=== PATIENT | female | born 1945 | race Caucasian/White ===

== ENCOUNTER → 2018-04-02 10:01 | Outpatient (CLI) | payer MEDICARE, SELFPAY | PROVIDERS: PCP Family Medicine; Visit Provider Family Medicine | DX: M85.852 Other specified disorders of bone density and structure, left thigh (principal); Z78.0 Asymptomatic menopausal state; Z85.3 Personal history of malignant neoplasm of breast; E28.39 Other primary ovarian failure; Z87.891 Personal history of nicotine dependence | CPT/HCPCS: 77080 ==

== ENCOUNTER → 2019-02-21 11:30 | Outpatient (CLI) | payer MEDICARE, SELFPAY ==
--- NOTE | 2019-02-21 11:33 | DI.US.S_ITS ---
PROCEDURE: US PERIPH VENOUS LOW EXTREM LT INDICATIONS: LT LEG SWELLING TECHNIQUE: Real-time imaging, as well as color and pulse Doppler interrogation, were performed of the lower extremity deep veins from the inguinal ligament to the popliteal fossa. COMPARISON: None. FINDINGS: The common femoral, femoral and popliteal veins are normally compressible, and free of intraluminal thrombus. Color and pulse Doppler demonstrate normal phasic intraluminal flow. There is normal augmentation response to distal compression maneuver. IMPRESSION: Negative for deep venous thrombosis. Dictated by: Gaudencio Bhatia M.D. on 02/21/2019 at 11:40 Approved by: Gaudencio Bhatia M.D. on 02/21/2019 at 11:41
--- NOTE | 2019-02-21 11:33 | DI.US.S_ITS ---
ULTRASOUND OF LEFT BREAST: 02/21/2019 CLINICAL: Enlarging palpable left breast lump at site of previous drainage tube placement. No prior exams were available for comparison. Color flow and real-time ultrasound of the anterior left chest were performed. Petersen scale images of the real-time examination were reviewed. Patient is status post bilateral mastectomy. Targeted ultrasound of the area of the patient's reported palpable abnormality of the anterior lateral left chest demonstrates a 6.3 x 2.5 x 7.1 cm complicated fluid collection with internal echogenic debris, nonvascular internal septations, and no vascularity on Doppler ultrasound. This correlates with the site of the patient's palpable concern. IMPRESSION: PROBABLY BENIGN 7.1 cm complicated fluid collection with internal echogenic debris identified within the soft tissues of the anterior left chest at the site of the patient's reported focal palpable concern, most consistent with an evolving hematoma with internal clot formation. Recommend clinical followup for further evaluation and management. A followup targeted ultrasound in 6 months is recommended to demonstrate stability/resolution. The patient is advised to monitor her chest and to return sooner for re-evaluation should she feel anything grow or change. This exam was interpreted at Station ID: [id number]. Electronically Signed By: Maksim Antoine M.D. ecl/:02/24/2019 11:49:32 letter sent: Followup Recommended Ultrasound BI-RADS: 3 Probably benign
== END ==
PROVIDERS: Family Provider Physician Assistant; PCP Physician Assistant; Visit Provider Internal Medicine Hematology & Oncology
DX: C50.912 Malignant neoplasm of unspecified site of left female breast (principal); M79.89 Other specified soft tissue disorders; Z17.0 Estrogen receptor positive status [ER+]
CPT/HCPCS: 76642; 93971

== ENCOUNTER → 2019-04-28 08:58 | Outpatient (CLI) | payer MEDICARE, SELFPAY ==
--- NOTE | 2019-04-28 09:01 | DI.RAD.S_ITS ---
PROCEDURE: XR CHEST 2V INDICATIONS: Dyspnea on exertion; former smoker; hx of breast cancer TECHNIQUE: 2 views of the chest were acquired. COMPARISON: None. FINDINGS: Surgical changes and devices: None. Lungs and pleura: Lungs are clear. No pleural effusions or pneumothorax. Mediastinum: Mediastinal contours are normal except for a small hiatal hernia behind the heart. Heart size is normal. Bones and chest wall: No suspicious bony abnormalities. Soft tissues appear unremarkable. IMPRESSION: Normal for age, source of current dyspnea on exertion symptoms is not seen. Dictated by: Bertram Lake M.D. on 04/28/2019 at 9:57 Approved by: Bertram Lake M.D. on 04/28/2019 at 9:58
[2019-04-28 11:37] LABS: Thyroid Stimulating Hormone 4.03 uIU/mL (0.47-4.68)
[2019-04-28 12:00] LABS: Vitamin B12 297 pg/mL (239-931)
== END ==
PROVIDERS: PCP Physician Assistant; Visit Provider Physician Assistant
DX: R06.09 Other forms of dyspnea (principal); R19.8 Other specified symptoms and signs involving the digestive system and abdomen; R53.83 Other fatigue; Z85.3 Personal history of malignant neoplasm of breast
CPT/HCPCS: 36415; 71046; 82607; 84443

== ENCOUNTER → 2019-04-29 12:57 | Outpatient (CLI) | payer MEDICARE, SELFPAY ==
--- NOTE | 2019-04-29 12:58 | DI.US.S_ITS ---
PROCEDURE: US ABDOMEN COMPLETE INDICATIONS: INCREASED ABD GIRTH; HX OF BREAST CA X 2 TECHNIQUE: Real-time scanning was performed of the abdominal and retroperitoneal organs, with image documentation. COMPARISON: None. FINDINGS: Liver: Liver is enlarged in size at 19.8 cm craniocaudad and homogeneous in echotexture, diffusely hyperechoic consistent with fatty infiltration. Gallbladder: The gallbladder was previously resected over 14 years ago according to the patient. Biliary ducts: Intrahepatic bile ducts are non-dilated. Extrahepatic bile duct caliber measures 9.9 mm. Normal is 6-7 mm or less in diameter, or 10 mm or less post-cholecystectomy. Pancreas: Visualized portions of the pancreas are sonographically normal. Spleen: Spleen is normal in size and homogeneous in echotexture. Kidneys: Kidneys are normal in size and echotexture. Right kidney measures 10.9 cm long; left kidney measures 10.5 cm long. No hydronephrosis or nephrolithiasis. No solid masses. Bilateral extrarenal pelvis appearance. Aorta: Visualized aorta is normal in caliber at less than 3 cm. Iliacs: Proximal common iliac arteries are normal in caliber at less than 2.5 cm. IVC: Intrahepatic inferior vena cava is patent. Miscellaneous: No free abdominal fluid. IMPRESSION: Prior cholecystectomy reported by the patient approximately 14 years ago. 19.8 cm craniocaudad length of the liver, enlarged, with diffuse fatty infiltration. No ascites. No masses found. Dictated by: Bertram Lake M.D. on 04/29/2019 at 14:04 Approved by: Bertram Lake M.D. on 04/29/2019 at 14:07
--- NOTE | 2019-04-29 12:58 | DI.US.S_ITS ---
PROCEDURE: US PELVIC COMPLETE INDICATIONS: INCREASED ABD GIRTH; HX OF BREAST CA X 2 TECHNIQUE: Real-time scanning was performed of the pelvic organs, with image documentation. Additional endovaginal scanning was necessary due to incomplete visualization of the adnexal and endometrial structures by transabdominal scanning. COMPARISON: [facility], , US ABDOMEN COMPLETE, 04/29/2019, 13:10. FINDINGS: Transabdominal scanning: Limited scanning through the kidneys shows no hydronephrosis. No pathologic free abdominal or pelvic fluid. Endovaginal scanning: Uterus: Surgically absent. Ovaries: Ovaries are not identified. No adnexal masses seen. Limited assessment of the urinary bladder demonstrate multiple posterior bladder wall trabeculations. IMPRESSION: 1. Limited evaluation of the pelvis demonstrating no acute abnormalities. 2. Multiple posterior urinary bladder wall trabeculations. Dictated by: Mikie BENITEZ Interpreted: Dixie Ames MD on 04/29/2019 at 14:53 Approved by: Dixie Ames M.D. on 04/29/2019 at 16:14
== END ==
PROVIDERS: PCP Physician Assistant; Visit Provider Physician Assistant
DX: R06.09 Other forms of dyspnea (principal); R19.8 Other specified symptoms and signs involving the digestive system and abdomen; R53.83 Other fatigue; N32.89 Other specified disorders of bladder; Z85.3 Personal history of malignant neoplasm of breast
CPT/HCPCS: 76700; 76830; 76856

== ENCOUNTER → 2019-05-09 08:50 | Outpatient (CLI) | payer MEDICARE, SELFPAY ==
--- NOTE | 2019-05-16 16:10 | PM.PFT.1 ---
Pulmonary Function Test Referral & Results Date Patient Seen: 05/09/19 Requesting provider: Precious Hobbs Results: The spirometry demonstrates an FVC of 2.30 L which is 81% of predicted. The FEV1 was measured at 1.84 L which is 86% of predicted. The FEV1/FVC ratio was 80 which is 106% of predicted. Following the administration of bronchodilator there was no appreciable change. Lung volumes show an SVC of 2.32 L which is 83% of predicted. The diffusing capacity was measured at 16.60 which is 68% of predicted. No hemoglobin value was provided, so no correction for potential anemia could be made, if appropriate. The maximum voluntary ventilation was reduced Interpretation: This study demonstrates minimal obstructive lung disease based on slight reduction in FEV1. There is no significant evidence of benefit following bronchodilator administration There is also slight reduction in SVC suggesting an element of restrictive lung disease also is present There is more significant reduction in diffusing capacity suggesting more significant disease at the capillary alveolar level This study basically demonstrates fairly normal spirometry but more significant reduction in diffusing capacity suggesting issues at the capillary alveolar level
== END ==
PROVIDERS: PCP Physician Assistant; Visit Provider Physician Assistant
DX: R06.02 Shortness of breath (principal)
CPT/HCPCS: 94060; 94726; 94729

== ENCOUNTER → 2019-05-29 07:30 | Outpatient (CLI) | payer MEDICARE, SELFPAY ==
[2019-05-29 08:36] LABS: BUN Creatinine Ratio 31.7 (6-22); Blood Urea Nitrogen 19 mg/dL (7-17); Estimated Glomerular Filt Rate > 60.0 mL/min (>60)
== END ==
PROVIDERS: PCP Physician Assistant; Visit Provider Physician Assistant
DX: Z01.818 Encounter for other preprocedural examination (principal)
CPT/HCPCS: 36415; 82565; 84520

== ENCOUNTER → 2019-06-03 08:33 | Outpatient (CLI) | payer MEDICARE, SELFPAY ==
--- NOTE | 2019-06-03 08:52 | DI.CT.S_ITS ---
PROCEDURE: CT CHEST W CON INDICATIONS: Evaluation. Abnormal PFT TECHNIQUE: After the administration of intravenous contrast, 5 mm thick sections acquired from the pulmonary apices to the posterior costophrenic angles. 1 mm axial lung, 5 mm thick coronal and sagittal reformats and 7 mm axial MIP were acquired. For radiation dose reduction, the following was used: automated exposure control, adjustment of mA and/or kV according to patient size. COMPARISON: None. FINDINGS: Image quality: Excellent. Lungs and pleura: No acute air space opacities. Biapical pulmonary scarring. Scarring within the superior segments of the bilateral lower lobes. No pleural effusions or pneumothorax. Central and peripheral airways are patent and normal in caliber. Mediastinum: Heart size is normal. No pericardial effusion. No mediastinal or hilar adenopathy by size criteria. Thoracic aorta and central pulmonary arteries are normal in size. Esophagus is normal in caliber. Moderate hiatal hernia. Bones and chest wall: No suspicious bony lesions. Patient appears to be status post bilateral mastectomy. There are bilateral anterior chest wall low-density foci with a surrounding rim, measuring 8.3 cm and on the right, and 7.2 cm on the left, compatible with postsurgical sequelae. No vertebral body compression fractures. No axillary or supraclavicular adenopathy by size criteria. Thyroid gland is within normal limits. Abdomen: Visualized upper abdominal solid organs appear normal. Upper abdominal bowel loops are normal in caliber. IMPRESSION: 1. Presumed postsurgical sequelae within the bilateral anterior chest kurtz; recommend correlation with surgical history. 2. Bilateral pulmonary scarring as described above. No evidence of acute process. 3. Moderate hiatal hernia. Dictated by: Dixie Ames M.D. on 06/03/2019 at 9:18 Approved by: Dixie Ames M.D. on 06/03/2019 at 9:22
== END ==
PROVIDERS: PCP Physician Assistant; Visit Provider Physician Assistant
DX: R94.2 Abnormal results of pulmonary function studies (principal); R06.02 Shortness of breath; J98.4 Other disorders of lung; K44.9 Diaphragmatic hernia without obstruction or gangrene
CPT/HCPCS: 71260; Q9967

== ENCOUNTER → 2019-06-23 07:33 | Outpatient (CLI) | payer MEDICARE, SELFPAY | PROVIDERS: PCP Physician Assistant; Visit Provider Internal Medicine Hematology & Oncology | DX: C50.919 Malignant neoplasm of unspecified site of unspecified female breast (principal); Z53.20 Procedure and treatment not carried out because of patient's decision for unspecified reasons ==

== ENCOUNTER → 2019-07-01 06:45 | Outpatient (CLI) | payer MEDICARE, SELFPAY ==
--- NOTE | 2019-07-01 06:47 | DI.US.S_ITS ---
ULTRASOUND OF LEFT BREAST: 07/01/2019 CLINICAL: 6 month follow-up of hematoma. History breast ca, mastectomy. Comparison is made to exam dated: 02/21/2019 [facility] [place]. Ultrasound of the left breast was performed on the area of interest. Petersen scale images of the real-time examination were reviewed. Patient is status post bilateral mastectomy. The left chest complicated fluid collection has decreased in size and now measures 6.1 x 1.8 x 4.5 cm and previously measured 7.1 x 2.5 x 6.3 cm. This correlates with the site of the patient's palpable concern. IMPRESSION: BENIGN Decreased size of the left chest wall hematoma when compared with the prior ultrasound dated 02/21/19. Clinical follow up recommended. There is no sonographic evidence of malignancy. This exam was interpreted at Station ID: [id number]. Electronically Signed By: Petty Cronin M.D. lk/:07/01/2019 09:01:41 letter sent: Clinical Evaluation Ultrasound BI-RADS: 2 Benign
--- NOTE | 2019-07-01 06:47 | DI.ECHO.S_ITS ---
[place] [facility]---------+ [facility] +---------+ : : [address] : : : : [id number] : : : : Phone: [phone]+ Echocardiogram Report + + :Name: JEFF RASHEED Study Date: 07/01/2019 Height: 64 in : :[facility] Weight: 180 lb : : Gender: Female BSA: 1.9 m2 : :: 1945 Age: 73 yrs BP: 157/70 mmHg: :Reason For Study: Dyspnea : : Performed By: Yuki Canales : :Referring: JOVANI HOOVER : + + Interpretation Summary The left ventricle is normal in size, wall thickness, and systolic function without any focal wall motion abnormalities. The ejection fraction is estimated to be 60-65%. Diastolic parameters suggest a relaxation abnormality of the left ventricle, consistent with probable normal filling pressures. The right ventricle grossly appears normal in size with probable normal systolic function. The right ventricular systolic pressure is estimated to be at least 24 mmHg based on an estimated right atrial pressure of 3 mm Hg. The left atrium is moderately dilated. The right atrium is mildly dilated. There is mild mitral regurgitation. There is mild aortic regurgitation. There is no other significant valvular heart disease. The ascending aorta is mildly enlarged. Procedure: A two-dimensional transthoracic echocardiogram with color flow and Doppler was performed. The study quality was technically adequate. There is no prior echocardiogram noted for this patient. The patient was in normal sinus rhythm during the exam. Left Ventricle: The left ventricle is normal in size, wall thickness, and systolic function without any focal wall motion abnormalities. The ejection fraction is estimated to be 60-65%. Diastolic parameters suggest a relaxation abnormality of the left ventricle, consistent with probable normal filling pressures. Right Ventricle: The right ventricle grossly appears normal in size with probable normal systolic function. Atria: The left atrium is moderately dilated. The right atrium is mildly dilated. The interatrial septum is intact with no evidence for an atrial septal defect. Mitral Valve: The mitral valve is grossly normal. There is mild mitral regurgitation. Aortic Valve: The aortic valve is trileaflet. The aortic valve opens well. There is mild aortic regurgitation. Tricuspid Valve: The tricuspid valve leaflets are thin and pliable. There is mild tricuspid regurgitation. The right ventricular systolic pressure is estimated to be at least 24 mmHg based on an estimated right atrial pressure of 3 mm Hg. Pulmonic Valve: The pulmonic valve is not well seen, but is grossly normal. There is mild pulmonic regurgitation. There is no other significant valvular heart disease. Great Vessels: The aortic root is normal size. The ascending aorta is mildly enlarged. The aortic arch is normal in size. The IVC is of normal diameter and collapses greater than 50% with a sniff. This suggests a low right atrial pressure of 3 mm Hg. Pericardium/ Pleura There is no pericardial effusion. There is no pleural effusion. MMode/2D Measurements & Calculations LVIDd: 4.9 cm Ao root diam: 3.5 cm LVIDs: 3.0 cm Aortic Jxn: 2.9 cm FS: 38.6 % asc Aorta Diam: 3.6 cm EPSS: 0.41 cm Ao Arch Diam (Prox Trans): 2.4 cm IVSd: 0.73 cm LVPWd: 0.77 cm LV wade. diameter/BSA (cm/m^2): 2.6 LV sys. diameter/BSA (cm/m^2): 1.6 LA dimension: 3.9 cm RA long axis: 5.3 cm LA A2 area: 27.2 cm2 RA area: 19.4 cm2 LA A4 area: 23.3 cm2 RA vol: 60.5 ml LA length (vol): 5.7 cm RA : 32.4 ml/m2 LA vol: 94.2 ml RVDd major: 4.6 cm LA vol index: 50.4 ml/m2 RVD1 (basal): 3.3 cm RVD2 (mid): 2.7 cm Doppler Measurements & Calculations Ao V2 max: 101.5 cm/sec MV E max david: 67.7 cm/sec Ao V2 mean: 63.6 cm/sec MV A max david: 73.5 cm/sec Ao max P.1 mmHg MV E/A: 0.92 Ao mean P.9 mmHg Med Peak E' David: 4.9 cm/sec Ao V2 VTI: 23.6 cm E/E' med: 13.7 Lat Peak E' David: 7.5 cm/sec E/E' lat: 9.1 E/e' average: 11.4 MV dec time: 0.28 sec MV P1/2t: 81.9 msec TR max david: 228.4 cm/sec MV P1/2t max david: 67.9 cm/sec TR max P.9 mmHg MVA(P1/2t): 2.7 cm2 PA V2 max: 69.8 cm/sec PA V2 mean: 47.2 cm/sec PA mean P.0 mmHg PA Accel Time: 0.13 sec Reading Physician:01:[id number] PM
== END ==
PROVIDERS: PCP Physician Assistant; Referring Provider Internal Medicine Hematology & Oncology; Visit Provider Physician Assistant
DX: C50.911 Malignant neoplasm of unspecified site of right female breast (principal); C50.912 Malignant neoplasm of unspecified site of left female breast; I08.3 Combined rheumatic disorders of mitral, aortic and tricuspid valves; I77.89 Other specified disorders of arteries and arterioles; R06.09 Other forms of dyspnea; R53.83 Other fatigue
CPT/HCPCS: 76642; 93306

== ENCOUNTER 2020-02-20 19:39 | Emergency (ER) | payer MEDICARE, SELFPAY ==
[2020-02-20] VITALS (7 sets, daily range): BP systolic 140–202; BP diastolic 66–94; PULSE 63–67; RESP 14–34; TEMP 36.9; O2SAT 96–100; BMI 30.9
--- NOTE | 2020-02-20 19:48 | DI.RAD.S_ITS ---
PROCEDURE: XR SHOULDER RT MIN 2V INDICATIONS: shoulder pain TECHNIQUE: 2 views of the shoulder were acquired. COMPARISON: None. FINDINGS: Bones: There is anterior glenohumeral joint dislocation. There are small curvilinear fracture fragments projecting caudal to the glenoid, donor site uncertain. A there is potentially an impaction deformity along the posterior humeral head. No suspicious bony lesions. Visualized ribs appear intact. Soft tissues: No suspicious soft tissue calcifications. IMPRESSION: 1. Anterior glenohumeral joint dislocation. 2. Probable Hill-Sachs impaction fracture and possible bony Bankart lesions. Further imaging following reduction is recommended. Dictated by: Margot Bhakta M.D. on 02/20/2020 at 21:01 Approved by: Margot Bhakta M.D. on 02/20/2020 at 21:03
--- NOTE | 2020-02-20 20:16 | PC.NURSE ---
upon patient arrival, provider notified of patient need for pain medication prior to xray. Provider aknowledged. Patient now calling out in pain. Spouse at nurse station voicing concerns, provider aware.
--- NOTE | 2020-02-20 20:22 | ED.UPPEXIN ---
HPI - Extremity Injury (Upper) General Chief Complaint: Extremity Injury, Upper Stated Complaint: FALL LEFT SHOULDER PAIN Time Seen by Provider: 02/20/20 20:18 Source: patient Mode of arrival: Ambulatory Limitations: no limitations History of Present Illness HPI narrative: The patient [place] visiting the [place] with her . She slipped and fell, she fell forward landing on her outstretched right hand. There was no head, neck or torso injury. She has severe right arm pain and cannot move the right arm. There is no numbness or weakness in the right hand. She does move the arm because the shoulder pain. She is right-hand dominant. Related Data Home Medications Medication Instructions Recorded Confirmed Calcium 500 mg PO BID 12/18/18 07/07/19 Glucosamine/Chondroitin 1 tab PO .QDAY 12/18/18 07/07/19 Vitamin D3 1 tab PO BID 12/18/18 07/07/19 montelukast 10 mg tablet 10 mg PO QPM 12/18/18 07/07/19 cyanocobalamin (vitamin B-12) 1,000 mcg PO DAILY 05/14/19 07/07/19 1,000 mcg capsule Previous Rx's Medication Instructions Recorded anastrozole 1 mg PO DAILY #90 tab 07/03/19 fluticasone propionate 50 2 spray NASAL DAILY #9.9 gram 02/13/20 mcg/actuation nasal spray,suspension tramadol 50 mg PO Q6H PRN #20 tab 02/20/20 Allergies Allergy/AdvReac Type Severity Reaction Status Date / Time No Known Drug Allergies Allergy Verified 02/20/20 19:51 Review of Systems Review of Systems ROS Unobtainable: All systems reviewed & are unremarkable except as noted in HPI and below Constitutional Constitutional: Reports as per HPI, Denies fatigue, Denies fever(s), Denies headache(s), Denies malaise and Denies weakness Eyes Eyes: Denies change in vision ENT Ears, Nose, Mouth, and Throat: Denies headache(s) and Denies sore throat Cardiovascular Cardiovascular: Denies chest pain, Denies lightheadedness, Denies palpitations, Denies dyspnea and Denies orthopnea Respiratory Respiratory: Denies cough, Denies dyspnea and Denies wheezing Gastrointestinal Gastrointestinal: Denies abdominal pain and Denies nausea Genitourinary Genitourinary: Denies hematuria, Denies flank pain and Denies urinary urgency Musculoskeletal Musculoskeletal: Denies back pain, Denies muscle weakness, Denies numbness and Denies tingling Comments: Severe right shoulder pain, see HPI. Integumentary/Breasts Skin/Breast: Denies pruritus, Denies erythema, Denies rash and Denies wounds Neurologic Neurologic: Denies confusion, Denies headache(s), Denies numbness, Denies tingling and Denies weakness Psychiatric Psychiatric: Denies anxiety and Denies confusion Endocrine Endocrine: Denies fatigue and Denies palpitations Allergic/Immunologic Allergic/Immunologic: Denies wheezing Patient History Medical History At high risk for osteoporosis (Chronic) Breast cancer, left breast (Acute) Cataract of both eyes (Chronic 01/20/16) Cataracts, bilateral (Chronic Unknown) High risk medication use (Chronic) History of hyperlipidemia (Chronic 01/20/16) Hx of breast cancer (Resolved 1995) Hx of hyperlipidemia (Resolved ) Left knee pain (Chronic 06/23/16) Seborrheic dermatitis of scalp (Chronic) Sleep apnea (Acute) Surgical History Hx of mastectomy (Resolved Unknown) Status post cholecystectomy Family History Father No problems noted. Mother Cancer Sister Hypertension Heart disease Social History Smoking Status: Former smoker Tobacco: How many years used: 20 second hand exposure: No alcohol intake: never substance use type: does not use Smoking Status: Former smoker alcohol intake frequency: holidays/special occasions only Substance Use Type: does not use Exam Initial Vital Signs Initial Vital Signs: Vital Signs Temperature 98.5 F 02/20/20 19:40 Pulse Rate 63 02/20/20 19:40 Respiratory Rate 14 02/20/20 19:40 Blood Pressure 140/94 H 02/20/20 19:40 Pulse Oximetry 100 02/20/20 19:40 Const General: cooperative and well developed Nutritional Appearance: well nourished Other: She appears quite uncomfortable. HENMT Head: normocephalic and atraumatic Face and sinus: sinuses nontender and face symmetric Mouth: oral mucosae normal and moist mucous membranes Teeth and gingiva: dentition normal Throat: posterior oropharynx normal and uvula midline Eyes General: appearance normal, both eyes and all related structures Neck Neck: normal visual inspection, trachea midline, No lymphadenopathy and No JVD Lymphatic: No lymphedema Chest Chest: normal palpation of entire chest wall Resp Effort & Inspection: normal respiratory effort and able to speak in complete sentences Auscultation: clear to auscultation bilaterally, no rales, no rhonchi and no wheezes Cardio Rate: regular rate Rhythm: regular rhythm Heart Sounds: S1 normal, S2 normal, no click, no gallops, no murmurs and no rubs Pulses: normal peripheral pulses GI Palpation: soft, no hepatosplenomegaly and No tender Auscultation: normal bowel sounds Back/Spine/Pelvis Back: normal to inspection Cervical Spine: cervical ROM normal Thoracic/Lumbar Spine: thoracic and lumbar spine normal to inspection Skin General: no rashes or lesions noted and No petechiae Neuro General: alert, oriented x3, gait normal and no focal motor deficits Speech: speech normal Other: The right arm has normal motor and sensory function. Extrem Other: Palpable deformity of the right humeral head area, suggesting dislocation. The right arm reveals no deformity to the humerus, elbow or forearm. The right hand and wrist are normal/nontender. She has normal radial pulse to the right hand. Psych Appearance: well kempt Mental Status: mental status grossly normal Attitude: cooperative Thought Content: normal Judgment: judgment good Procedures Orthopedic Joint Reduction Joint #1: Time Out Performed: Yes Side: right Joint Reduction Location: shoulder Analgesia: procedural sedation Shoulder Technique Used (if applicable): Jaren Post-reduction neuro exam: intact Post-reduction vascular: intact Post Reduction X-Ray Obtained: Yes Post Reduction X-Ray Results: reduced Splint Applied: Yes Patient Tolerated Procedure: Well Procedural Sedation Consent signed: Yes Time out performed: Yes Indication: fracture/dislocation reduction ASA Class: II Mallampati Airway Classification: Class I Time of Last PO Intake: 04:28 Preparation: equipment monitor phototypesetting applied and IV secured IV Propofol dose (mg): 120 ED Sedation Level: Moderate (Concious) Patient Tolerated Procedure: Well Complications: Respiratory Depression-Repositioning Required (She has a history of sleep apnea. She could acquired BVM support for for approximately 1 minute after sedation. From the point she recovered quickly to her normal status.) Interventions: Assist by BVM Course Course Course Narrative: The right shoulder was quickly/easily reduced. Patient recovered from procedural sedation, a sling was placed. She is feeling much better after the reduction. Her pain is decreased dramatically. Nonetheless, I provided her with tramadol for pain medication if necessary Orders Ordered: ED Orders 02/20/20 21:39 XR shoulder RT min 2V Stat Discontinued Medications Hydromorphone HCl (Dilaudid) 1 mg IV NOW ONE Stop: 02/20/20 20:24 Last Admin: 02/20/20 20:33 Dose: 1 mg Documented by: ASHWIN Sodium Chloride (Normal Saline 0.9%) 1,000 mls @ 250 mls/hr IV CONT GREGG Last Infusion: 02/20/20 23:31 Dose: 0 mls/hr Documented by: Admin: 02/20/20 21:35 Dose: 250 mls/hr Documented by: ASHWIN Propofol (Diprivan) 160 mg IV NOW ONE Stop: 02/20/20 20:55 Last Admin: 02/20/20 21:34 Dose: 120 mg Documented by: ASHWIN Tramadol HCl (Ultram 50mg Prepack) 1 bottle MISC SEEINSTR ONE Stop: 02/20/20 23:16 Last Admin: 02/20/20 23:23 Dose: 1 bottle Documented by: COLT Vital Signs Vital signs: Vital Signs - 8 hr 02/20/20 22:10 02/20/20 22:40 02/20/20 23:25 Pulse Rate 66 63 64 Respiratory Rate 25 H 30 H 15 Blood Pressure 161/66 H Blood Pressure [Left Arm] 165/76 H 167/77 H Pulse Oximetry 96 98 99 MDM - Extremity Injury (Upper) Lab Data Labs: Point of Care Testing Test Results Not applicable Imaging Data Right shoulder XR:: Radiologist's Impression: [address] [address] XRay Report Signed Patient: Emily Condon KMR#: [id number] : 5Acct:[id number] Age/Sex: 74 / FDate of Service: 02/20/20 Loc: ED Accession Number: [id number] Procedure: XR shoulder RT min 2V Ordering Provider: Jay Jay Argueta MD PROCEDURE: XR SHOULDER RT MIN 2V INDICATIONS: shoulder pain TECHNIQUE: 2 views of the shoulder were acquired. COMPARISON: None. FINDINGS: Bones: There is anterior glenohumeral joint dislocation. There are small curvilinear fracture fragments projecting caudal to the glenoid, donor site uncertain. A there is potentially an impaction deformity along the posterior humeral head. No suspicious bony lesions. Visualized ribs appear intact. Soft tissues: No suspicious soft tissue calcifications. IMPRESSION: 1. Anterior glenohumeral joint dislocation. 2. Probable Hill-Sachs impaction fracture and possible bony Bank[place] lesions. Further imaging following reduction is recommended. Dictated by: Margot Bhakta M.D. on 02/20/2020 at 21:01 Approved by: Margot Bhakta M.D. on 02/20/2020 at 21:03 Post reduction shoulder x-ray:: Radiologist's Impression: [address] [address] XRay Report Signed Patient: Emily Condon KMR#: [id number] : 5Acct:[id number] Age/Sex: 74 / FDate of Service: 02/20/20 Loc: ED Accession Number: [id number] Procedure: XR shoulder RT min 2V Ordering Provider: Jay Jay Argueta MD PROCEDURE: XR SHOULDER RT MIN 2V INDICATIONS: shoulder pain TECHNIQUE: 2 views of the shoulder were acquired. COMPARISON: None. FINDINGS: Bones: There is anterior glenohumeral joint dislocation. There are small curvilinear fracture fragments projecting caudal to the glenoid, donor site uncertain. A there is potentially an impaction deformity along the posterior humeral head. No suspicious bony lesions. Visualized ribs appear intact. Soft tissues: No suspicious soft tissue calcifications. IMPRESSION: 1. Anterior glenohumeral joint dislocation. 2. Probable Hill-Sachs impaction fracture and possible bony [place] lesions. Further imaging following reduction is recommended. Dictated by: Margot Bhakta M.D. on 02/20/2020 at 21:01 Approved by: Margot Bhakta M.D. on 02/20/2020 at 21:03 Discharge Plan Departure Patient Disposition: Home Clinical Impression: Dislocation of right shoulder joint Qualifiers: Encounter type: initial encounter Qualified Code(s): S43.004A - Unspecified dislocation of right shoulder joint, initial encounter Closed Hill-Sachs fracture Qualifiers: Encounter type: initial encounter Laterality: right Qualified Code(s): S42.291A - Other displaced fracture of upper end of right humerus, initial encounter for closed fracture Discharge Date/Time: 02/20/20 23:25 Instructions: DI for Shoulder Dislocation Activity Restrictions/Additional Instructions: Wean from the sling as tolerated. There may be a small fracture associated with dislocation. Follow-up with your doctor in 2 weeks. Your doctor may want to provide you with physical therapy. Tylenol 2 tablets every 4 hours as needed for pain. Tramadol every 6 hours as needed added pain control. Return the ER as needed. Prescriptions: New tramadol 50 mg tablet 50 mg PO Q6H PRN (Reason: pain) Qty: 20 RF: 0 No Action montelukast 10 mg tablet 10 mg PO QPM RF: 0 Calcium 500 mg PO BID RF: 0 Vitamin D3 1 tab PO BID RF: 0 Glucosamine/Chondroitin 1 tab PO .QDAY RF: 0 fluticasone propionate 50 mcg/actuation spray,suspension 2 spray NASAL DAILY Qty: 9.9 RF: 0 cyanocobalamin (vitamin B-12) 1,000 mcg capsule 1,000 mcg PO DAILY RF: 0 anastrozole 1 mg Tablet 1 mg PO DAILY Qty: 90 RF: 4 Referrals: Precious Hobbs PA-C [Primary Care Provider] -
--- NOTE | 2020-02-20 20:23 | PC.NURSE ---
provider at bedside
[2020-02-20] MEDS: HYDROMORPHONE 1 MG INJ IV (20:33)
--- NOTE | 2020-02-20 20:38 | PC.NURSE ---
patient states last food and drink at 1600.
[2020-02-20] MEDS: propofoL 200 MG/20 ML VIAL 160 MG IV (21:34)
[2020-02-20] MEDS: SODIUM CHLORIDE 0.9% 1,000 ML 250 ML IV (21:35)
--- NOTE | 2020-02-20 21:39 | DI.RAD.S_ITS ---
PROCEDURE: XR SHOULDER RT MIN 2V INDICATIONS: post reduction TECHNIQUE: 2 views of the shoulder were acquired. COMPARISON: [facility], , XR SHOULDER RT MIN 2V, 02/20/2020, 19:44. FINDINGS: Bones: There has been successful reduction of the glenohumeral joint dislocation. There is slight irregularity along the posterior aspect of the humeral head but no displaced fracture fragments are identified. Soft tissues: No suspicious soft tissue calcifications. IMPRESSION: 1. Successful reduction of anterior glenohumeral dislocation. 2. Probable slight Hill-Sachs impaction fracture without significant displaced fragments. If there is continued concern for nondisplaced humeral head fracture, multiple views of the shoulder are recommended. Dictated by: Margot Bhakta M.D. on 02/20/2020 at 22:00 Approved by: Margot Bhakta M.D. on 02/20/2020 at 22:02
--- NOTE | 2020-02-20 21:52 | PC.NURSE ---
arsalan required jaw thrust and ambu bag support to maintain saturations above 90 for a few minutes. Pt now sitting up in bed talking to spouse about greys anatamy episodes that reminded him of this scene. Patient states her shoulder is just sore now. Patient informed of need to follow up for addidtional concerns of NACHO.
[2020-02-20] MEDS: TRAMADOL 50 MG PREPACK 1 BOTTLE MISC (23:23)
== END 2020-02-20 23:25 | disposition home or self-care (01) ==
PROVIDERS: Emergency Provider Emergency Medicine; PCP Physician Assistant
DX: S43.004A Unspecified dislocation of right shoulder joint, initial encounter (principal); S42.291A Other displaced fracture of upper end of right humerus, initial encounter for closed fracture; W01.0XXA Fall on same level from slipping, tripping and stumbling without subsequent striking against object, initial encounter
CPT/HCPCS: 23605; 73030; 94770; 96361; 96374; 99152; 99285; J1170; J2704

== ENCOUNTER → 2020-04-22 07:33 | Outpatient (CLI) | payer MEDICARE, SELFPAY ==
[2020-04-22 08:18] LABS: Add Manual Diff / Slide Review NO; Basophils Absolute Auto 100 /uL (0-100); Basophils Percent Auto 1.2 % (0-2); Eosinophils Absolute Auto 400 /uL (0-450); Hematocrit 34.8 % (36-46); Hemoglobin 11.9 g/dL (12.0-16.0); Lymphocytes Absolute Auto 2500 /uL (1100-4500); Mean Corpuscular HGB Conc 34.3 % (30-36); Mean Corpuscular Hemoglobin 29.4 PG (26-34); Mean Corpuscular Volume 85.8 fL (80-100); Monocytes Absolute Auto 600 /uL (0-900); Monocytes Percent Auto 6.3 % (3-14); Neutrophils Absolute Auto 5300 /uL (1500-7000); Neutrophils Percent Auto 60.5 % (50-75); Platelet Count 234 X10^3/uL (150-400); Red Blood Cell Count 4.06 X10^6/uL (4.0-5.2); Red Cell Distribution Width 12.9 % (11.6-14.8); White Blood Cell Count 8.8 X10^3/uL (4.5-11.0)
[2020-04-22 08:28] LABS: Alanine Aminotransferase 13 IU/L (<35); Albumin 3.9 g/dL (3.5-5.0); Albumin Globulin Ratio 1.5 (1.0-2.8); Alkaline Phosphatase 85 U/L (38-126); Aspartate Aminotransferase 19 IU/L (14-36); BUN Creatinine Ratio 16.7 (6-22); Bilirubin Total 0.6 mg/dL (0.2-1.3); Blood Urea Nitrogen 9 mg/dL (7-17); Calcium 9.5 mg/dL (8.4-10.2); Carbon Dioxide 30 mmol/L (22-32); Chloride 104 mmol/L (98-107); Cholesterol 154 mg/dL (140-199); Estimated Glomerular Filt Rate > 60.0 mL/min (>60); Globulin 2.6 g/dL (1.7-4.1); Glucose 105 mg/dL (80-110); HDL Cholesterol 44 mg/dL (40-60); HEMOLYSIS < 15 (0-50); LDL Cholesterol Calculated 89 mg/dL (<100); Potassium 3.7 mmol/L (3.4-5.1); Sodium 140 mmol/L (137-145); Total Protein 6.5 g/dL (6.3-8.2); Triglycerides 107 mg/dL (35-150)
[2020-04-22 09:16] LABS: Vitamin B12 784 pg/mL (239-931)
== END ==
PROVIDERS: PCP Internal Medicine; Referring Provider Internal Medicine; Visit Provider Internal Medicine
DX: C50.912 Malignant neoplasm of unspecified site of left female breast (principal); Z17.0 Estrogen receptor positive status [ER+]; Z79.899 Other long term (current) drug therapy; Z91.89 Other specified personal risk factors, not elsewhere classified
CPT/HCPCS: 36415; 80053; 80061; 82607; 85025

== ENCOUNTER → 2020-04-29 13:34 | Outpatient (CLI) | payer MEDICARE, SELFPAY | PROVIDERS: PCP Internal Medicine; Referring Provider Internal Medicine; Visit Provider Internal Medicine | DX: M85.852 Other specified disorders of bone density and structure, left thigh (principal); Z78.0 Asymptomatic menopausal state; C50.912 Malignant neoplasm of unspecified site of left female breast; Z17.0 Estrogen receptor positive status [ER+]; Z91.89 Other specified personal risk factors, not elsewhere classified; Z79.899 Other long term (current) drug therapy; Z87.891 Personal history of nicotine dependence | CPT/HCPCS: 77080 ==

== ENCOUNTER 2020-07-01 08:20 | Emergency (ER) | payer MEDICARE, SELFPAY ==
[2020-07-01 08:31] VITALS: BP 142/69; PULSE 78; RESP 20; TEMP 36.6; O2SAT 99; BMI 32.5
--- NOTE | 2020-07-01 09:03 | ED_ITS ---
HPI - General Adult General Chief complaint: Dizziness Stated complaint: dizzy,balance worse, shoulder hurts Time Seen by Provider: 07/01/20 08:36 Source: patient Mode of arrival: Ambulatory Limitations: no limitations History of Present Illness HPI narrative: Patient is a 74-year-old female here for evaluation of multiple complaints to include right shoulder pain, unsteadiness with walking and also symptoms consistent with vertigo. The right shoulder pain has been for a fairly long time. Occurred after she fell and dislocated her right shoulder. She has seen orthopedics he was cleared by Orthopedics. She has also seen her primary doctor and also seen physical therapy. She states that she is still having continued pain in her right shoulder. She states she was told by ?someone I trust ?that she needed an MRI of her shoulder. She is here asking for an MRI. She is also complaining of balance issues. This is also not a new issue for her. She has seen her primary doctor. She states she has also [facility] 1 time. She states she was ?not impressed [facility]with the [facility]. She states that this has not changed. What has changed is that over the past couple days she has had symptoms consistent with vertigo. States she is not currently having any symptoms. Has occurred the past couple mornings when she wakes up in turns on her side. She states that is a room spinning sensation. Last only a few seconds and then completely resolves. States that last evening she bent over and had the symptoms happen again. Again only lasts a few seconds and then resolved. She is not having any other associated symptoms include chest pain or shortness of breath or headache. Related Data Home Medications Medication Instructions Recorded Confirmed Calcium 500 mg PO BID 12/18/18 04/20/20 Glucosamine/Chondroitin 1 tab PO .QDAY 12/18/18 04/20/20 Vitamin D3 1 tab PO BID 12/18/18 04/20/20 montelukast 10 mg tablet 10 mg PO QPM 12/18/18 04/20/20 cyanocobalamin (vitamin B-12) 1,000 mcg PO DAILY 05/14/19 04/20/20 1,000 mcg capsule fluticasone propionate 50 2 spray NASAL DAILY PRN gram 04/20/20 04/20/20 mcg/actuation nasal spray,suspension Previous Rx's Medication Instructions Recorded anastrozole 1 mg PO DAILY #90 tab 10/10/19 ibuprofen 800 mg tablet 800 mg PO Q8H PRN #150 tab 03/01/20 tramadol 50 mg tablet 50 mg PO Q6H PRN #30 tab 06/22/20 hydrochlorothiazide 25 mg tablet 25 mg PO DAILY #90 tab 06/25/20 meclizine 25 mg PO TID PRN #14 tab 07/01/20 Allergies Allergy/AdvReac Type Severity Reaction Status Date / Time No Known Drug Allergies Allergy Verified 07/01/20 08:31 Review of Systems Constitutional Constitutional: Denies body ache(s), Denies chills, Denies fatigue, Denies fever(s), Denies frequent falls, Denies headache(s) and Denies malaise Eyes Eyes: Denies change in vision ENT Ears, Nose, Mouth, and Throat: Reports vertigo, Reports dizziness, Denies headache(s) and Reports disequilibrium Cardiovascular Cardiovascular: Denies chest pain, Denies edema, Reports lightheadedness and Denies dyspnea Respiratory Respiratory: Denies cough and Denies dyspnea Gastrointestinal Gastrointestinal: Denies abdominal pain, Denies nausea and Denies vomiting Genitourinary Genitourinary: Denies dysuria Genitourinary: Denies dysuria Musculoskeletal Comments: Right shoulder pain Integumentary/Breasts Skin/Breast: Denies lesions and Denies rash Neurologic Neurologic: Denies behavioral changes, Reports vertigo, Reports dizziness, Denies frequent falls, Denies headache(s), Denies convulsions and Reports disequilibrium Psychiatric Psychiatric: Denies behavioral changes Endocrine Endocrine: Denies fatigue Hematologic/Lymphatic Hematologic/Lymphatic: Denies easy bleeding and Denies easy bruising Allergic/Immunologic Allergic/Immunologic: Denies urticaria Patient History Medical History At high risk for osteoporosis (Chronic) Breast cancer, left breast (Acute) Cataract of both eyes (Chronic 01/20/16) Cataracts, bilateral (Chronic Unknown) H/O adenomatous polyp of colon (Acute) High risk medication use (Chronic) History of hyperlipidemia (Resolved 01/20/16) Hx of breast cancer (Resolved 1995) Hx of hyperlipidemia (Resolved Unknown) Left knee pain (Resolved 06/23/16) Seborrheic dermatitis of scalp (Chronic) Sleep apnea (Acute) Surgical History (Updated 03/01/20 @ 08:44 by Uli Pratt MD) Hx of mastectomy (Resolved ~2017) S/P breast reconstruction, right (Acute ~1996) Status post cholecystectomy Family History Father No problems noted. Mother Cancer Sister Hypertension Heart disease Social History Smoking Status: Former smoker Tobacco: How many years used: 20 second hand exposure: No alcohol intake: never substance use type: does not use Smoking Status: Former smoker alcohol intake frequency: holidays/special occasions only Substance Use Type: does not use Exam Initial Vital Signs Initial Vital Signs: Vital Signs Temperature 97.8 F 07/01/20 08:31 Pulse Rate 78 07/01/20 08:31 Respiratory Rate 20 07/01/20 08:31 Blood Pressure 142/69 H 07/01/20 08:31 Pulse Oximetry 99 07/01/20 08:31 Const General: cooperative, comfortable and well developed Limitations: mental status not altered HENWY Head: normal to inspection and normocephalic Eyes General: appearance normal, both eyes and all related structures Pupils: PERRL Chest Other: Left-sided mastectomy Resp Effort & Inspection: normal respiratory effort Auscultation: clear to auscultation bilaterally Cardio Rate: regular rate Rhythm: regular rhythm GI Inspection: non-distended Palpation: soft Skin Lesions: no lesions Rashes: no rashes Neuro General: patient alert, patient awake and patient oriented x3 Cranial Nerves: CN's II-XI intact bilaterally Cognition: normal cognition Speech: speech normal Motor: muscle tone normal throughout Sensory Exam: no sensory deficits noted Extrem General: normal to inspection and capillary refill normal Psych Appearance: grossly normal and well kempt Scores GCS [place] coma scale eye opening: Spontaneous Humza coma scale verbal response: Orientated [place] coma scale motor response: Obey commands [place] coma scale total score: 15 Course Vital Signs Vital signs: Vital Signs - 8 hr 07/01/20 08:31 Temperature 97.8 F Pulse Rate 78 Respiratory Rate 20 Blood Pressure 142/69 H Pulse Oximetry 99 Medical Decision Making ECG Data Attestation: I personally reviewed and interpreted this ECG as follows: Prior ECG tracings: not available for review Interpretation: Sinus rhythm Ventricular rate is 71 Normal axis Normal QRS Nonspecific ST T wave changes MDM Narrative Medical decision making narrative: Patient's right shoulder pain is not new. She has an appointment with orthopedics the beginning of next week. I feel that x-rays would not be helpful. Unfortunately we cannot obtain an MRI out of the emergency department. We discussed this. She has pain medication at home. The underlying balance issues that she has is also not new. She has seen her primary doctor and also the [facility]. I feel that we can hold on further workup of this issue and have her follow-up with her primary doctor. She is also having symptoms consistent with vertigo. It is a positional issue. She is not currently having the symptoms. Low suspicion for CVA. Will send home with meclizine. She was also instructed to follow-up with her primary doctor. She was given return precautions and follow-up instructions. She expressed understanding and agreement. Discharge Plan Departure Patient Disposition: Home Clinical Impression: Vertigo, Unsteadiness on feet Pain in right shoulder Qualifiers: Chronicity: chronic Qualified Code(s): M25.511 - Pain in right shoulder Instructions: DI for Vertigo, How to Prevent Falls Activity Restrictions/Additional Instructions: Continue all of your medications as directed. I recommend that you keep your appointment with the orthopedic doctor next week to discuss further workup of your right shoulder. Also feel it is important that you follow-up with your primary doctor to discuss your unsteadiness and also the vertigo. Return emergency department for any new or worsening symptoms Prescriptions: New meclizine 25 mg tablet 25 mg PO TID PRN (Reason: motion sickness) Qty: 14 RF: 0 No Action montelukast 10 mg tablet 10 mg PO QPM RF: 0 Calcium 500 mg PO BID RF: 0 Vitamin D3 1 tab PO BID RF: 0 Glucosamine/Chondroitin 1 tab PO .QDAY RF: 0 tramadol 50 mg tablet 50 mg PO Q6H PRN (Reason: pain) Qty: 30 RF: 0 hydrochlorothiazide 25 mg tablet 25 mg PO DAILY Qty: 90 RF: 1 cyanocobalamin (vitamin B-12) 1,000 mcg capsule 1,000 mcg PO DAILY RF: 0 ibuprofen 800 mg tablet 800 mg PO Q8H PRN (Reason: pain) Qty: 150 RF: 3 fluticasone propionate 50 mcg/actuation spray,suspension 2 spray NASAL DAILY PRN (Reason: allergy symptoms) RF: 0 anastrozole 1 mg Tablet 1 mg PO DAILY Qty: 90 RF: 4 Referrals: Uli Partt MD [Primary Care Provider] -
[2020-07-01 09:39] VITALS: BP 138/62; PULSE 72; RESP 18; O2SAT 99
== END 2020-07-01 09:39 | disposition home or self-care (01) ==
PROVIDERS: Emergency Provider Emergency Medicine; PCP Internal Medicine
DX: R42 Dizziness and giddiness (principal); R26.81 Unsteadiness on feet; M25.511 Pain in right shoulder
CPT/HCPCS: 93005; 99282; 99283

== ENCOUNTER → 2020-07-10 11:00 | Outpatient (CLI) | payer MEDICARE, SELFPAY ==
--- NOTE | 2020-07-10 | DI.MRI.S_ITS ---
PROCEDURE: MR SHOULDER RT WO CON INDICATIONS: Unspecified dislocation of unspecified shoulder TECHNIQUE: Noncontrast oblique coronal T2 fast spin echo with fat saturation, oblique sagittal T1 spin echo and T2 fast spin echo with fat saturation, axial T1 spin echo and T2 fast spin echo with fat saturation through the shoulder. COMPARISON: [facility], CR, XR SHOULDER 2+ VIEWS RIGHT, 04/08/2020, 9:12. [facility], CR, XR SHOULDER 2+ VIEWS RIGHT, 03/10/2020, 8:35. [facility], CR, XR SHOULDER RT MIN 2V, 02/20/2020, 19:44. FINDINGS: Image quality: Excellent. Rotator cuff: The infraspinatus, and subscapularis tendons appear intact throughout however there is a retracted full-thickness supraspinatus rotator cuff tear, with interspace between the retracted margins of the supraspinatus measured up to 3.4 cm.. Sagittal images demonstrate mild supraspinatus muscle atrophy medially. Bones and bursae: No acute appearing bone marrow contusions or fractures, but there is mild marrow heterogeneity within the proximal humerus and humeral head in this patient with significant Hill-Sachs deformity/impaction fracture from anterior subcoracoid right shoulder dislocation earlier this year.. There is moderately severe acromioclavicular joint degeneration. The acromion demonstrates conventional anatomy, without an os acromiale. No pathologic subacromial-subdeltoid or subcoracoid bursal fluid is present. Capsule and soft tissues: In the absence of intra-articular contrast, the labrum and glenohumeral ligaments appear intact. The long head of the biceps tendon demonstrates normal location and morphology. The rotator interval appears normal, without fibrosis. The coracohumeral ligament is normal in thickness. IMPRESSION: Full-thickness supraspinatus rotator cuff tear, retracted by approximately 3.4 cm laterally. Moderately severe AC joint osteoarthritis with fibrous an osseous hypertrophy. Additionally, healed or healing Hill-Sachs deformity presumably related to the anterior subcoracoid shoulder joint dislocation documented 02/20/20 is associated with mild residual marrow edema involving the proximal humeral metadiaphyseal junction and neck/head.. Dictated by: Bertram Lake M.D. on 07/12/2020 at 9:35 Approved by: Bertram Lake M.D. on 07/12/2020 at 9:42
== END ==
PROVIDERS: PCP Internal Medicine; Referring Provider Orthopaedic Surgery; Visit Provider Orthopaedic Surgery
DX: S43.004A Unspecified dislocation of right shoulder joint, initial encounter (principal); M75.121 Complete rotator cuff tear or rupture of right shoulder, not specified as traumatic; M19.011 Primary osteoarthritis, right shoulder; X58.XXXA Exposure to other specified factors, initial encounter
CPT/HCPCS: 73221

== ENCOUNTER → 2020-10-26 09:22 | Outpatient (CLI) | payer MEDICARE, SELFPAY ==
[2020-10-26 13:32] LABS: Bacteria Urine None Seen
[2020-10-26 13:36] LABS: Appearance Urine UA SL CLOUDY; Bilirubin Urine UA NEGATIVE (NEGATIVE); Color Urine UA YELLOW; Glucose Urine UA NEGATIVE (Negative); Ketones Urine UA NEGATIVE (NEGATIVE); Leukocyte Esterase Urine UA 3+ (NEGATIVE); Nitrite Urine UA NEGATIVE (Negative); Occult Blood Urine UA 2+ (Negative); Protein Urine UA NEGATIVE (Negative); Specific Gravity Urine UA 1.015 (1.000-1.035); Urobilinogen Urine UA 0.2 E.U./dL (0.2)
[2020-10-26 13:58] LABS: Culture Indicated Urine Specimen Cultured; RBC Urine 10-30/HPF (0-5/HPF); WBC Urine 30-100/HPF (0-5/HPF)
== END ==
PROVIDERS: PCP Internal Medicine; Visit Provider Registered Nurse
DX: N39.0 Urinary tract infection, site not specified (principal); R35.0 Frequency of micturition
CPT/HCPCS: 81001; 87077; 87086; 87186

== ENCOUNTER → 2021-01-18 08:01 | Outpatient (CLI) | payer MEDICARE, SELFPAY ==
--- NOTE | 2021-01-18 08:02 | DI.US.S_ITS ---
PROCEDURE: US ABDOMEN LIMITED INDICATIONS: ANTERIOR ABDOMINAL WALL LUMP; POSSIBLE HERNIA TECHNIQUE: Real-time focused scanning was performed of the abdomen, with image documentation. COMPARISON: [facility], , US ABDOMEN COMPLETE, 04/29/2019, 13:10. FINDINGS: At the mid abdomen anterior body wall near the midline there is a palpable lump that has persisted over 3 weeks and the clinical diagnosis is likely hernia. Scanning in this area reveals a body wall defect at the midline measuring between 10 and 12 mm diameter, and through this opening a combination of fat and bowel was observed to extend, measuring overall 0.8 by 2.5 x 3.0 cm. Little change in appearance of this structure with Valsalva was observed. IMPRESSION: Ventral body wall defect as cause of herniation from the peritoneal space of fat and bowel into the subcutaneous fat. No incarceration or strangulation suspected. Dictated by: Bertram Lake M.D. on 01/18/2021 at 9:43 Approved by: Bertram Lake M.D. on 01/18/2021 at 9:52
== END ==
PROVIDERS: PCP Internal Medicine; Referring Provider Registered Nurse; Visit Provider Registered Nurse
DX: R10.9 Unspecified abdominal pain (principal); K43.9 Ventral hernia without obstruction or gangrene
CPT/HCPCS: 76705

== ENCOUNTER → 2021-02-14 09:28 | Outpatient (CLI) | payer MEDICARE, SELFPAY ==
[2021-02-14 10:23] LABS: COVID19 -Nasal RAPID Negative (Negative)
== END ==
PROVIDERS: PCP Internal Medicine; Visit Provider Surgery
DX: Z20.822 Contact with and (suspected) exposure to COVID-19 (principal)
CPT/HCPCS: 87635; C9803

== ENCOUNTER 2021-02-15 09:58 | Day surgery (SDC) | payer MEDICARE, SELFPAY ==
[2021-02-09 11:33] VITALS: BMI 29.2
[2021-02-15] VITALS (12 sets, daily range): BP systolic 101–149; BP diastolic 40–76; PULSE 47–73; RESP 12–18; TEMP 36.2–36.5; O2SAT 94–98; BMI 29.2
[2021-02-15] MEDS: LACTATED RINGERS 1,000 ML 100 ML IV (10:45)
[2021-02-15] MEDS: APREPITANT 40 MG CAPSULE PO (10:58)
[2021-02-15] MEDS: SCOPOLAMINE 1 PATCH TOP (10:58)
--- NOTE | 2021-02-15 11:14 | PM.PREOP ---
Pre-operative Note Interval Note History & Physical reviewed/Exam performed by Physician: Yes Changes to H&P: No
[2021-02-15] MEDS: CEFAZOLIN 1 GM VIAL 2 GM IV (11:35)
--- NOTE | 2021-02-15 11:44 | SUR.OPER ---
Supine on padded OR bed, head on pillow, arms padded and tucked at side, legs uncrossed, safety belt at thigh, tape over blanket over lower legs .pillow under knees and gel pad under heels
[2021-02-15] MEDS: BUPIVACAINE 0.25% (PF) VIAL 30 ML INJ (11:55)
[2021-02-15] MEDS: OXYCODONE IR 5 MG TABLET PO ×2 (13:00→13:29)
[2021-02-15] MEDS: ACETAMINOPHEN 325 MG TABLET 650 MG PO ×2 (13:01→13:29)
[2021-02-15] MEDS: ONDANSETRON 4 MG/2 ML INJ IV (13:01)
[2021-02-15] MEDS: fentaNYL 100 MCG/2 ML INJ IV ×2 (13:05→13:31)
--- NOTE | 2021-02-15 13:06 | PM.OP.1 ---
Operative Date/Time/Diagnoses Date of procedure: 02/15/21 Time of procedure: 13:16 Pre-op diagnosis: ventral hernia Post-op diagnosis: same Procedure & Clinicians Procedure: open ventral hernia hernia repair with mesh Same procedure as scheduled: Yes Indications: ventral hernia with pain Surgeon: Beto Brooks Anesthesia Type: General Operative Notes Findings: 6 cm fascial defect hernia sac contains omentum. Specimen(s): none sent Estimated Blood Loss (mL): 20 Procedure in detail: Patient was brought to the operating room placed supine on the table. Bilateral lower extremity compression devices were applied. General anesthesia was induced and they were intubated with an endotracheal tube. They received 2 g of Ancef prior to skin incision. They were prepped and draped in sterile fashion. A time-out was performed. A midline incision was made superior to the umbilicus. The subcutaneous tissues were divided. The ventral hernia was identified and the hernia sac was dissected off the the fascia defect. The hernia sac was sharply opened and contained viable omentum. The omentum was reduced back into the abdomen. Using blunt dissection I carefully carefully freed the hernia sac from beneath the fascia defect.. The fascia defect was 6 cm in maximal diameter. The fascial edges were freshened. Fascia was then closed in interrupted fashion using Ethibond interrupted suture. The defect closed without tension. A flat sheet of porous mesh 10 x 15 cm cm was inserted above the fascia defect. The mesh was anchored in multiple locations using Ethibond suture to the fascia. The subcutaneous tissues were reapproximated using 3 0 Vicry,l skin closed with 4 0 Monocryl followed by the application of Dermabond and Steri-Strips. Sponge instrument count at the end of the operation was correct. Patient tolerated procedure well was extubated and transferred to postoperative care unit in stable condition. Complications: none Post-operative Condition: stable Disposition: same day surgery
--- NOTE | 2021-02-15 14:34 | SUR.PHASEII ---
1358 - discharge: assisted PACU nurse in putting on an abdominal binder (OK'd by Dr. Brooks) for additional support. Assisted patient in dressing, which she was able to lift legs and buttocks without obvious distress. CPAP returned to patient, shoes and some of her clothing which she chose not to put on are in her bag, ice pack and instructions in her bag.
== END 2021-02-15 14:22 | disposition home or self-care (01) ==
PROVIDERS: PCP Internal Medicine; Referring Provider Internal Medicine; Visit Provider Surgery
PROC: (CPT 49560; principal; 2021-02-15 11:15)
DX: K43.9 Ventral hernia without obstruction or gangrene (principal); G47.33 Obstructive sleep apnea (adult) (pediatric); J45.909 Unspecified asthma, uncomplicated; I10 Essential (primary) hypertension
CPT/HCPCS: 49560; 49568; C1781; J0690; J1100; J2405; J2704; J3010; J8501

== ENCOUNTER → 2021-04-27 07:33 | Outpatient (CLI) | payer MEDICARE, SELFPAY ==
[2021-04-27 08:42] LABS: Add Manual Diff / Slide Review NO; Basophils Absolute Auto 100 /uL (0-100); Basophils Percent Auto 0.8 % (0-2); Eosinophils Absolute Auto 300 /uL (0-450); Eosinophils Percent Auto 4.2 % (2-4); Hematocrit 36.6 % (36-46); Hemoglobin 12.5 g/dL (12.0-16.0); Lymphocytes Absolute Auto 1900 /uL (1100-4500); Lymphocytes Percent Auto 24.1 % (25-40); Mean Corpuscular HGB Conc 34.1 % (30-36); Mean Corpuscular Hemoglobin 29.5 PG (26-34); Mean Corpuscular Volume 86.5 fL (80-100); Monocytes Absolute Auto 600 /uL (0-900); Monocytes Percent Auto 7.4 % (3-14); Neutrophils Absolute Auto 5000 /uL (1500-7000); Neutrophils Percent Auto 63.5 % (50-75); Platelet Count 226 X10^3/uL (150-400); Red Blood Cell Count 4.24 X10^6/uL (4.0-5.2); Red Cell Distribution Width 12.7 % (11.6-14.8); White Blood Cell Count 7.8 X10^3/uL (4.5-11.0)
[2021-04-27 09:06] LABS: Alanine Aminotransferase 14 IU/L (<35); Albumin 3.8 g/dL (3.5-5.0); Albumin Globulin Ratio 1.6 (1.0-2.8); Alkaline Phosphatase 94 U/L (38-126); Aspartate Aminotransferase 21 IU/L (14-36); BUN Creatinine Ratio 24.2 (6-22); Bilirubin Total 0.2 mg/dL (0.2-1.3); Blood Urea Nitrogen 15 mg/dL (7-17); Calcium 9.5 mg/dL (8.4-10.2); Carbon Dioxide 29 mmol/L (22-32); Chloride 103 mmol/L (98-107); Cholesterol 174 mg/dL (140-199); Estimated Glomerular Filt Rate > 60.0 mL/min (>60); Globulin 2.4 g/dL (1.7-4.1); Glucose 124 mg/dL (80-110); HDL Cholesterol 44 mg/dL (40-60); HEMOLYSIS < 15 (0-50); LDL Cholesterol Calculated 109 mg/dL (<100); Potassium 3.8 mmol/L (3.4-5.1); Sodium 139 mmol/L (137-145); Total Protein 6.2 g/dL (6.3-8.2); Triglycerides 103 mg/dL (35-150)
== END ==
PROVIDERS: PCP Internal Medicine; Referring Provider Internal Medicine; Visit Provider Internal Medicine
DX: C50.912 Malignant neoplasm of unspecified site of left female breast (principal); Z17.0 Estrogen receptor positive status [ER+]; Z13.220 Encounter for screening for lipoid disorders
CPT/HCPCS: 36415; 80053; 80061; 85025

== ENCOUNTER → 2021-11-16 07:37 | Outpatient (CLI) | payer MEDICARE, SELFPAY ==
[2021-11-16 08:56] LABS: Add Manual Diff / Slide Review NO; Basophils Absolute Auto 100 /uL (0-100); Basophils Percent Auto 0.8 % (0-2); Eosinophils Absolute Auto 300 /uL (0-450); Eosinophils Percent Auto 3.6 % (2-4); Hematocrit 38.3 % (36-46); Hemoglobin 12.8 g/dL (12.0-16.0); Lymphocytes Absolute Auto 1900 /uL (1100-4500); Lymphocytes Percent Auto 25.9 % (25-40); Mean Corpuscular HGB Conc 33.5 % (30-36); Mean Corpuscular Hemoglobin 29.2 PG (26-34); Mean Corpuscular Volume 87.2 fL (80-100); Monocytes Absolute Auto 600 /uL (0-900); Monocytes Percent Auto 8.4 % (3-14); Neutrophils Absolute Auto 4400 /uL (1500-7000); Neutrophils Percent Auto 61.3 % (50-75); Platelet Count 230 X10^3/uL (150-400); Red Blood Cell Count 4.39 X10^6/uL (4.0-5.2); Red Cell Distribution Width 12.6 % (11.6-14.8); White Blood Cell Count 7.2 X10^3/uL (4.5-11.0)
[2021-11-16 09:00] LABS: Blood Urea Nitrogen 13 mg/dL (7-17); Calcium 9.3 mg/dL (8.4-10.2); Carbon Dioxide 33 mmol/L (22-32); Chloride 102 mmol/L (98-107); Estimated Glomerular Filt Rate > 60.0 mL/min (>60); Glucose 112 mg/dL (80-110); HEMOLYSIS < 15 (0-50); Potassium 4.1 mmol/L (3.4-5.1); Sodium 139 mmol/L (137-145)
== END ==
PROVIDERS: PCP Internal Medicine; Referring Provider Surgery; Visit Provider Surgery
DX: R19.00 Intra-abdominal and pelvic swelling, mass and lump, unspecified site (principal); C50.912 Malignant neoplasm of unspecified site of left female breast; Z98.890 Other specified postprocedural states; Z17.0 Estrogen receptor positive status [ER+]
CPT/HCPCS: 36415; 80048; 85025

== ENCOUNTER → 2021-11-17 08:59 | Outpatient (CLI) | payer MEDICARE, SELFPAY ==
--- NOTE | 2021-11-17 | DI.CT.S_ITS ---
PROCEDURE: CT ABDOMEN PELVIS W CON INDICATIONS: abdominal wall bulge TECHNIQUE: After the administration of oral and intravenous contrast, axial sections were acquired from the lung bases to the pubic symphysis. Coronal and sagittal reformats were performed. For radiation dose reduction, the following was used: automated exposure control, adjustment of mA and/or kV according to patient size. COMPARISON:[facility], CT, CT CHEST W CON, 06/03/2019, 8:51. FINDINGS: Image quality: Excellent. Lung bases: Unremarkable. Heart: No significant findings. ABDOMEN: Liver: Unremarkable. Gallbladder: Surgically absent. Biliary ducts: Unremarkable. Pancreas: Unremarkable. Spleen: Unremarkable. Adrenal Glands: Unremarkable. Kidneys and Ureters: Unremarkable. Stomach and Bowel: Stomach, small bowel loops, and colon are unremarkable. There is a moderate contrast filled hiatal hernia. There are scattered sigmoid diverticula. No evidence for diverticulitis. The appendix is not visualized; however there are no ancillary findings to suggest acute appendicitis. Peritoneum: No abnormal intraperitoneal fluid. No free air. Ventral Wall: There is a 2.8 x 1.6 x 6.6 cm intermediate density fluid collection present within the midline incision. There is a small associated fat containing periumbilical hernia. No bowel herniation. Abdominal Nodes: No retroperitoneal or mesenteric adenopathy by size criteria. Vessels: Aorta and inferior vena cava are normal in size. There are scattered atheromatous calcifications throughout the aorta and iliac arteries bilaterally. PELVIS: Pelvic Organs: Unremarkable. Bladder: Unremarkable. Pelvic Nodes: No enlarged lymph nodes. Miscellaneous: No inguinal hernias are seen. Bones: Unremarkable. IMPRESSION: 1. Small fat containing paraumbilical hernia and small intermediate density fluid collection within the previous midline incision. 2. No acute intra-abdominal findings. Diverticulosis. No acute diverticulitis. Dictated by: Petty Cronin M.D. on 11/17/2021 at 11:02 Approved by: Petty Cronin M.D. on 11/17/2021 at 11:14
== END ==
PROVIDERS: PCP Internal Medicine; Referring Provider Surgery; Visit Provider Surgery
DX: R19.00 Intra-abdominal and pelvic swelling, mass and lump, unspecified site (principal); K42.9 Umbilical hernia without obstruction or gangrene; K44.9 Diaphragmatic hernia without obstruction or gangrene; K57.30 Diverticulosis of large intestine without perforation or abscess without bleeding
CPT/HCPCS: 74177; Q9967

== ENCOUNTER → 2022-04-13 07:16 | Outpatient (CLI) | payer MEDICARE, SELFPAY | PROVIDERS: PCP Internal Medicine; Referring Provider Student in an Organized Health Care Education/Training Program; Visit Provider Student in an Organized Health Care Education/Training Program | DX: R30.0 Dysuria (principal) | CPT/HCPCS: 87077; 87086; 87186 ==

== ENCOUNTER 2022-04-17 12:03 | Inpatient (IN) | payer MEDICARE, SELFPAY ==
[2022-04-17] VITALS (18 sets, daily range): BP systolic 100–150; BP diastolic 53–77; PULSE 55–68; RESP 12–36; TEMP 36–37.1; O2SAT 96–99; BMI 30.9
--- NOTE | 2022-04-17 12:49 | ED.ABDPAIN ---
HPI - Abdominal Pain <Ari Pollack PA-C - Last Filed: 04/17/22 17:43> General Chief Complaint: Abdominal Pain Stated Complaint: vomiting/abd. pain Time Seen by Provider: 04/17/22 12:33 Mode of arrival: Family Vehicle History of Present Illness HPI narrative: 76-year-old female with past medical history breast cancer, on anastrozole, obstructive sleep apnea, diverticulosis, adenoma this polyp of the colon presents to the ED with 2 days of left lower quadrant pain. Patient states that she recently had a UTI that was diagnosed on 04/13/22, treated with Macrobid, her urinary symptoms have resolved. Patient denies dysuria, flank pain, urinary frequency, urinary urgency. Patient states that 2 days ago she started experiencing intermittent left lower quadrant pain, along with nausea. This morning, patient had a few episodes of vomiting prior to coming into the ED. patient states that over the last month, she has had night sweats. Patient states that she awoke at about 2:00 a.m. last night with left lower quadrant pain and sweats. Patient denies fever, chest pain, shortness of breath, diarrhea, flank pain, lightheadedness, dizziness, syncope. Patient has a history of ventral hernia that was repaired in 2019. Related Data Home Medications Medication Instructions Recorded Confirmed omeprazole 20 mg tablet,delayed 20 mg PO DAILY 02/09/21 04/17/22 release calcium carbonate 500 mg-vitamin 1 tab PO DAILY 02/15/21 04/17/22 D3 5 mcg (200 unit) tablet (Calcium 500 + D) [employer]Med AirSense 10 Auto 12/29/21 12/29/21 Previous Rx's Medication Instructions Recorded hydrochlorothiazide 25 mg tablet 25 mg PO DAILY #90 tabs 03/03/22 anastrozole 1 mg tablet 1 mg PO DAILY #90 tabs 03/13/22 Allergies Allergy/AdvReac Type Severity Reaction Status Date / Time No Known Drug Allergies Allergy Verified 04/17/22 12:11 Review of Systems <Ari Pollack PA-C - Last Filed: 04/17/22 17:43> Review of Systems ROS Unobtainable: All systems reviewed & are unremarkable except as noted in HPI and below Constitutional Constitutional: Reports chills, Denies fatigue, Denies fever(s), Denies frequent falls, Denies lethargy and Denies weakness Eyes Eyes: Denies change in vision, Denies eye discharge, Denies irritation and Denies loss of vision ENT Ears, Nose, Mouth, and Throat: Denies change in voice, Denies dizziness, Denies neck pain, Denies sore throat and Denies throat swelling Cardiovascular Cardiovascular: Denies chest pain, Denies irregular heart rhythm, Denies lightheadedness, Denies palpitations, Denies dyspnea, Denies dyspnea on exertion and Denies orthopnea Respiratory Respiratory: Denies cough, Denies dyspnea, Denies dyspnea on exertion and Denies wheezing Gastrointestinal Gastrointestinal: Reports abdominal pain, Denies change in bowel habits, Denies diarrhea, Reports nausea and Reports vomiting Genitourinary Genitourinary: Denies hematuria, Denies dysuria, Denies flank pain, Denies urinary incontinence and Denies urinary urgency Musculoskeletal Musculoskeletal: Denies back pain, Denies muscle weakness, Denies neck pain, Denies numbness and Denies tingling Integumentary/Breasts Skin/Breast: Denies pruritus, Denies erythema, Denies rash and Denies wounds Neurologic Neurologic: Denies behavioral changes, Denies confusion, Denies dizziness, Denies frequent falls, Denies loss of vision, Denies numbness, Denies tingling and Denies weakness Psychiatric Psychiatric: Denies anxiety, Denies behavioral changes, Denies confusion, Denies depression, Denies homicidal ideation and Denies suicidal ideation Endocrine Endocrine: Denies fatigue, Denies flushing and Denies palpitations Hematologic/Lymphatic Hematologic/Lymphatic: Denies easy bruising Allergic/Immunologic Allergic/Immunologic: Denies urticaria, Denies throat swelling and Denies wheezing Patient History <Ari Pollack PA-C - Last Filed: 04/17/22 17:43> Medical History Breast cancer, left breast Breast cancer, right breast Cancer of left breast, stage 1, estrogen receptor positive Cataract of both eyes (01/20/16) Cataracts, bilateral (Unknown) CPAP (continuous positive airway pressure) dependence Diverticulosis Former smoker H/O adenomatous polyp of colon High risk medication use History of hyperlipidemia (01/20/16) Hx of breast cancer (1995) Hx of hyperlipidemia (Unknown) Left knee pain (06/23/16) Obstructive sleep apnea Seborrheic dermatitis of scalp Ventral hernia Surgical History History of ankle surgery History of section History of colonoscopy History of hysterectomy Hx of bilateral cataract extraction Hx of mastectomy (~2017) S/P breast reconstruction, right (~1996) Status post cholecystectomy Status post repair of ventral hernia (~01/2021) Family History Father No problems noted. Mother Cancer Gallstones Ovarian cancer Sister Hypertension Heart disease Social History marital status: household members: spouse occupational status: previously employed Smoking Status: Former smoker Tobacco: How many years used: 20 second hand exposure: No alcohol intake: never substance use type: does not use Smoking Status: Former smoker alcohol intake frequency: holidays/special occasions only Substance Use Type: does not use Exam <Ari Pollack PA-C - Last Filed: 04/17/22 17:43> Narrative Exam Narrative: Const General:?cooperative, healthy appearing and comfortable [facility] Head:?normal to inspection Ears:?hearing grossly normal bilaterally Nose:?external nose normal Face and sinus:?normal facial exam and sinuses nontender Mouth:?oral mucosae normal Throat:?posterior oropharynx normal Eyes General:?appearance normal, both eyes and all related structures Neck Neck:?normal visual inspection and no lymphadenopathy noted Resp Effort & Inspection:?normal respiratory effort Auscultation:?clear to auscultation bilaterally Cardio Rate:?regular rate Rhythm:?regular rhythm GI Abdomen is soft, nondistended. Abdomen is mildly tender to palpation in the left lower quadrant. No CVA tenderness. Neuro General:?patient alert, patient awake and patient oriented x3 Initial Vital Signs Initial Vital Signs: Vital Signs Temperature 97.6 F 04/17/22 12:08 Pulse Rate 68 04/17/22 12:08 Respiratory Rate 16 04/17/22 12:08 Blood Pressure 150/77 H 04/17/22 12:08 Pulse Oximetry 98 04/17/22 12:08 Oxygen Delivery Method 04/17/22 12:08 <Marleni Bell DO - Last Filed: 04/18/22 07:18> Initial Vital Signs Initial Vital Signs: Vital Signs Temperature 97.6 F 04/17/22 12:08 Pulse Rate 68 04/17/22 12:08 Respiratory Rate 16 04/17/22 12:08 Blood Pressure 150/77 H 04/17/22 12:08 Pulse Oximetry 98 04/17/22 12:08 Oxygen Delivery Method 04/17/22 12:08 Course <Ari Pollack PA-C - Last Filed: 04/17/22 17:43> Orders Ordered: ED Orders 04/18/22 03:42 Partial Thromboplastin Time Q6H Acetaminophen (Acetaminophen 325 Mg Tablet) 650 mg PO Q6HR PRN PRN Reason: Fever/Mild Pain (1-3) Anastrozole (Anastrozole 1 Mg Tablet) 1 mg PO DAILY GREGG Aspirin (Aspirin Ec 81 Mg Tablet) 81 mg PO DAILY GREGG Heparin Sodium/Dextrose (Heparin Drip) 25,000 unit in 500 mls @ 19.595 mls/hr IV CONT GREGG; Protocol Last Titration: 04/17/22 22:50 Dose: 10.41 units/kg/hr, 17 mls/hr Documented By: Titration: 04/17/22 17:12 Dose: 12 units/kg/hr, 19.595 mls/hr Documented By: Admin: 04/17/22 15:48 Dose: 12 units/kg/hr, 19.595 mls/hr Documented By: CHRISTEL Potassium Chloride 20 meq/ (Dextrose/Sodium Chloride) 1,010 mls @ 100 mls/hr IV CONT GREGG Last Admin: 04/18/22 03:47 Dose: 100 mls/hr Documented By: Co-signed By: KENYETTA Infusion: 04/18/22 03:47 Dose: 100 mls/hr Documented By: Co-signed By: KENYETTA Admin: 04/17/22 18:08 Dose: 100 mls/hr Documented By: DEVEN Co-signed By: RENEE Morphine Sulfate (Morphine 2 Mg/Ml Inj) 2 mg IV Q5MIN PRN PRN Reason: Chest Pain Last Admin: 04/17/22 20:02 Dose: 2 mg Documented By: Nitroglycerin (Nitroglycerin 0.4 Mg Sl Tab) 0.4 mg SL [id number] PRN PRN Reason: Chest Pain Ondansetron HCl (Ondansetron 4 Mg/2 Ml Inj) 4 mg IV Q8HR PRN PRN Reason: Nausea And Vomiting Pantoprazole Sodium (Pantoprazole Dr 20 Mg Tablet) 20 mg PO 0600 [facility] Last Admin: 04/18/22 06:48 Dose: 20 mg Documented By: MS Potassium Chloride (Potassium Chloride 20 Meq Tab) 20 meq PO TIDWM [facility] Stop: 04/18/22 17:01 Last Admin: 04/17/22 18:09 Dose: 20 meq Documented By: CLP Discontinued Medications Aspirin (Aspirin 81 Mg Chew Tab) 324 mg PO NOW ONE Stop: 04/17/22 15:40 Last Admin: 04/17/22 15:46 Dose: 324 mg Documented By: BS Heparin Sodium (Porcine) (Heparin 5,000 Unit/Ml Vial) 5,000 unit IV NOW ONE Stop: 04/17/22 15:40 Last Admin: 04/17/22 15:47 Dose: 5,000 unit Documented By: BS Ondansetron HCl (Ondansetron 4 Mg/2 Ml Inj) 4 mg IV NOW ONE Stop: 04/17/22 13:54 Last Admin: 04/17/22 13:56 Dose: 4 mg Documented By: SB Potassium Chloride (Potassium Chloride 20 Meq Tab) 40 meq PO NOW ONE Stop: 04/17/22 13:46 Last Admin: 04/17/22 13:51 Dose: 40 meq Documented By: SB Vital Signs Vital signs: Vital Signs - 8 hr 04/17/22 12:08 04/17/22 12:12 04/17/22 13:15 Temperature 97.6 F 98.8 F Pulse Rate 68 62 Respiratory Rate 16 19 Blood Pressure 150/77 H Pulse Oximetry 98 98 Oxygen Delivery Method Room Air 04/17/22 13:17 04/17/22 13:17 04/17/22 13:30 Temperature Pulse Rate 59 L 61 Respiratory Rate 16 15 Blood Pressure 129/58 L Pulse Oximetry 96 97 Oxygen Delivery Method 04/17/22 14:00 04/17/22 14:01 04/17/22 14:01 Temperature Pulse Rate 58 L 58 L Respiratory Rate 16 14 Blood Pressure 129/61 Pulse Oximetry 99 97 Oxygen Delivery Method 04/17/22 14:30 04/17/22 15:00 04/17/22 15:37 Temperature Pulse Rate 57 L 59 L 59 L Respiratory Rate 12 13 18 Blood Pressure Pulse Oximetry 99 97 99 Oxygen Delivery Method 04/17/22 15:39 04/17/22 15:39 04/17/22 15:57 Temperature Pulse Rate 58 L Respiratory Rate 14 Blood Pressure 135/62 142/65 H Pulse Oximetry 99 Oxygen Delivery Method 04/17/22 15:57 04/17/22 16:00 04/17/22 16:00 Temperature Pulse Rate 60 62 Respiratory Rate 28 H 36 H Blood Pressure 131/60 Pulse Oximetry 98 98 Oxygen Delivery Method <Marleni Bell, DO - Last Filed: 04/18/22 07:18> Orders Ordered: ED Orders 04/18/22 03:42 Partial Thromboplastin Time Q6H Acetaminophen (Acetaminophen 325 Mg Tablet) 650 mg PO Q6HR PRN PRN Reason: Fever/Mild Pain (1-3) Anastrozole (Anastrozole 1 Mg Tablet) 1 mg PO DAILY GREGG Aspirin (Aspirin Ec 81 Mg Tablet) 81 mg PO DAILY GREGG Heparin Sodium/Dextrose (Heparin Drip) 25,000 unit in 500 mls @ 19.595 mls/hr IV CONT GREGG; Protocol Last Titration: 04/17/22 22:50 Dose: 10.41 units/kg/hr, 17 mls/hr Documented By: Titration: 04/17/22 17:12 Dose: 12 units/kg/hr, 19.595 mls/hr Documented By: Admin: 04/17/22 15:48 Dose: 12 units/kg/hr, 19.595 mls/hr Documented By: CHRISTEL Potassium Chloride 20 meq/ (Dextrose/Sodium Chloride) 1,010 mls @ 100 mls/hr IV CONT GREGG Last Admin: 04/18/22 03:47 Dose: 100 mls/hr Documented By: Co-signed By: KENYETTA Infusion: 04/18/22 03:47 Dose: 100 mls/hr Documented By: Co-signed By: KENYETTA Admin: 04/17/22 18:08 Dose: 100 mls/hr Documented By: DEVEN Co-signed By: RENEE Morphine Sulfate (Morphine 2 Mg/Ml Inj) 2 mg IV Q5MIN PRN PRN Reason: Chest Pain Last Admin: 04/17/22 20:02 Dose: 2 mg Documented By: Nitroglycerin (Nitroglycerin 0.4 Mg Sl Tab) 0.4 mg SL [id number] PRN PRN Reason: Chest Pain Ondansetron HCl (Ondansetron 4 Mg/2 Ml Inj) 4 mg IV Q8HR PRN PRN Reason: Nausea And Vomiting Pantoprazole Sodium (Pantoprazole Dr 20 Mg Tablet) 20 mg PO 0600 [facility] Last Admin: 04/18/22 06:48 Dose: 20 mg Documented By: MS Potassium Chloride (Potassium Chloride 20 Meq Tab) 20 meq PO TIDWM [facility] Stop: 04/18/22 17:01 Last Admin: 04/17/22 18:09 Dose: 20 meq Documented By: CLP Discontinued Medications Aspirin (Aspirin 81 Mg Chew Tab) 324 mg PO NOW ONE Stop: 04/17/22 15:40 Last Admin: 04/17/22 15:46 Dose: 324 mg Documented By: BS Heparin Sodium (Porcine) (Heparin 5,000 Unit/Ml Vial) 5,000 unit IV NOW ONE Stop: 04/17/22 15:40 Last Admin: 04/17/22 15:47 Dose: 5,000 unit Documented By: BS Ondansetron HCl (Ondansetron 4 Mg/2 Ml Inj) 4 mg IV NOW ONE Stop: 04/17/22 13:54 Last Admin: 04/17/22 13:56 Dose: 4 mg Documented By: SB Potassium Chloride (Potassium Chloride 20 Meq Tab) 40 meq PO NOW ONE Stop: 04/17/22 13:46 Last Admin: 04/17/22 13:51 Dose: 40 meq Documented By: SB Vital Signs Vital signs: Vital Signs - 8 hr 04/17/22 12:08 04/17/22 12:12 04/17/22 13:15 Temperature 97.6 F 98.8 F Pulse Rate 68 62 Respiratory Rate 16 19 Blood Pressure 150/77 H Pulse Oximetry 98 98 Oxygen Delivery Method Room Air 04/17/22 13:17 04/17/22 13:17 04/17/22 13:30 Temperature Pulse Rate 59 L 61 Respiratory Rate 16 15 Blood Pressure 129/58 L Pulse Oximetry 96 97 Oxygen Delivery Method 04/17/22 14:00 04/17/22 14:01 04/17/22 14:01 Temperature Pulse Rate 58 L 58 L Respiratory Rate 16 14 Blood Pressure 129/61 Pulse Oximetry 99 97 Oxygen Delivery Method 04/17/22 14:30 04/17/22 15:00 04/17/22 15:37 Temperature Pulse Rate 57 L 59 L 59 L Respiratory Rate 12 13 18 Blood Pressure Pulse Oximetry 99 97 99 Oxygen Delivery Method 04/17/22 15:39 04/17/22 15:39 04/17/22 15:57 Temperature Pulse Rate 58 L Respiratory Rate 14 Blood Pressure 135/62 142/65 H Pulse Oximetry 99 Oxygen Delivery Method 04/17/22 15:57 04/17/22 16:00 04/17/22 16:00 Temperature Pulse Rate 60 62 Respiratory Rate 28 H 36 H Blood Pressure 131/60 Pulse Oximetry 98 98 Oxygen Delivery Method MDM - Abdominal Pain <Ari Pollack PA-C - Last Filed: 04/17/22 17:43> Medical Records Attestation: I reviewed the patient's medical records. Lab Data Lab results narrative: Hypokalemia to 2.9. Troponin 0.094 -> 0.332 Result diagrams: 04/17/22 12:35 04/18/22 03:42 Labs: Lab Results 04/17/22 04/17/22 04/17/22 Range/Units 12:35 12:35 12:35 WBC 8.7 (4.5-11.0) X10^3/uL RBC 4.19 (4.0-5.2) X10^6/uL Hgb 12.5 (12.0-16.0) g/dL Hct 35.6 L (36-46) % MCV 85.0 (80-100) fL MCH 29.8 (26-34) PG MCHC 35.0 (30-36) % RDW 12.9 (11.6-14.8) % Plt Count 226 (150-400) X10^3/uL Neut % (Auto) 68.3 (50-75) % Lymph % (Auto) 21.2 L (25-40) % [place] % (Auto) 7.2 (3-14) % Eos % (Auto) 2.5 (2-4) % Baso % (Auto) 0.8 (0-2) % Neut # (Auto) 5900 (9151-3225) /uL Lymph # (Auto) 1800 (2252-6325) /uL [place] # (Auto) 600 (0-900) /uL Eos # (Auto) 200 (0-450) /uL Baso # (Auto) 100 (0-100) /uL PT (10.1-12.7) SECONDS INR (0.9-1.3) APTT (26.4-36.2) SECONDS D-Dimer (<230) ng/mL Sodium 135 L (137-145) mmol/L Potassium 2.9 L (3.4-5.1) mmol/L Chloride 95 L (98-107) mmol/L Carbon Dioxide 32 (22-32) mmol/L BUN 10 (7-17) mg/dL Creatinine 0.64 (0.52-1.04) mg/dL Estimated GFR > 60 (>60) mL/min BUN/Creatinine Ratio 15.6 (6-22) Glucose 107 (80-110) mg/dL Lactate (0.7-2.1) mmol/L Calcium 8.5 (8.4-10.2) mg/dL Phosphorus 3.6 (2.8-4.1) mg/dL Magnesium 2.0 (1.6-2.3) mg/dL Total Bilirubin 0.5 (0.2-1.3) mg/dL AST 27 (14-36) IU/L ALT 15 (<35) IU/L Alkaline Phosphatase 78 (38-126) U/L Total Creatine Kinase (30-135) U/L CK-MB (CK-2) CK-MB (CK-2) Rel Index Troponin I (0.01-0.034) ng/mL Total Protein 6.3 (6.3-8.2) g/dL Albumin 3.9 (3.5-5.0) g/dL Globulin 2.4 (1.7-4.1) g/dL Albumin/Globulin Ratio 1.6 (1.0-2.8) Lipase 61 (23-300) U/L Urine Color Urine Appearance Urine pH (4.5-8.0) Ur Specific [place] (1.000-1.035) Urine Protein (Negative) Urine Glucose (UA) (Negative) g/dL Urine Ketones (NEGATIVE) Urine Occult Blood (Negative) Urine Nitrate (Negative) Urine Bilirubin (NEGATIVE) Urine Urobilinogen (0.2) E.U./dL Ur Leukocyte Esterase (NEGATIVE) Urine RBC (0-5/HPF) Urine WBC (0-5/HPF) Ur Squamous Epith Cells (0-5/HPF) Urine Bacteria (None) Ur Culture Indicated? SARS-CoV-2 (PCR) (Negative) 04/17/22 04/17/22 04/17/22 Range/Units 12:35 12:35 13:09 WBC (4.5-11.0) X10^3/uL RBC (4.0-5.2) X10^6/uL Hgb (12.0-16.0) g/dL Hct (36-46) % MCV (80-100) fL MCH (26-34) PG MCHC (30-36) % RDW (11.6-14.8) % Plt Count (150-400) X10^3/uL Neut % (Auto) (50-75) % Lymph % (Auto) (25-40) % [place] % (Auto) (3-14) % Eos % (Auto) (2-4) % Baso % (Auto) (0-2) % Neut # (Auto) (2996-6160) /uL Lymph # (Auto) (9188-6801) /uL [place] # (Auto) (0-900) /uL Eos # (Auto) (0-450) /uL Baso # (Auto) (0-100) /uL PT (10.1-12.7) SECONDS INR (0.9-1.3) APTT (26.4-36.2) SECONDS D-Dimer (<230) ng/mL Sodium (137-145) mmol/L Potassium (3.4-5.1) mmol/L Chloride (98-107) mmol/L Carbon Dioxide (22-32) mmol/L BUN (7-17) mg/dL Creatinine (0.52-1.04) mg/dL Estimated GFR (>60) mL/min BUN/Creatinine Ratio (6-22) Glucose (80-110) mg/dL Lactate 1.3 (0.7-2.1) mmol/L Calcium (8.4-10.2) mg/dL Phosphorus (2.8-4.1) mg/dL Magnesium (1.6-2.3) mg/dL Total Bilirubin (0.2-1.3) mg/dL AST (14-36) IU/L ALT (<35) IU/L Alkaline Phosphatase (38-126) U/L Total Creatine Kinase 94 (30-135) U/L CK-MB (CK-2) TNP CK-MB (CK-2) Rel Index TNP Troponin I 0.094 H (0.01-0.034) ng/mL Total Protein (6.3-8.2) g/dL Albumin (3.5-5.0) g/dL Globulin (1.7-4.1) g/dL Albumin/Globulin Ratio (1.0-2.8) Lipase (23-300) U/L Urine Color Urine Appearance Urine pH (4.5-8.0) Ur Specific Norton (1.000-1.035) Urine Protein (Negative) Urine Glucose (UA) (Negative) g/dL Urine Ketones (NEGATIVE) Urine Occult Blood (Negative) Urine Nitrate (Negative) Urine Bilirubin (NEGATIVE) Urine Urobilinogen (0.2) E.U./dL Ur Leukocyte Esterase (NEGATIVE) Urine RBC (0-5/HPF) Urine WBC (0-5/HPF) Ur Squamous Epith Cells (0-5/HPF) Urine Bacteria (None) Ur Culture Indicated? SARS-CoV-2 (PCR) Negative (Negative) 04/17/22 04/17/22 04/17/22 Range/Units 14:39 15:30 15:57 WBC (4.5-11.0) X10^3/uL RBC (4.0-5.2) X10^6/uL Hgb (12.0-16.0) g/dL Hct (36-46) % MCV (80-100) fL MCH (26-34) PG MCHC (30-36) % RDW (11.6-14.8) % Plt Count (150-400) X10^3/uL Neut % (Auto) (50-75) % Lymph % (Auto) (25-40) % [place] % (Auto) (3-14) % Eos % (Auto) (2-4) % Baso % (Auto) (0-2) % Neut # (Auto) (4227-7901) /uL Lymph # (Auto) (3254-3589) /uL [place] # (Auto) (0-900) /uL Eos # (Auto) (0-450) /uL Baso # (Auto) (0-100) /uL PT 11.5 (10.1-12.7) SECONDS INR 1.0 (0.9-1.3) APTT 29 (26.4-36.2) SECONDS D-Dimer (<230) ng/mL Sodium (137-145) mmol/L Potassium (3.4-5.1) mmol/L Chloride (98-107) mmol/L Carbon Dioxide (22-32) mmol/L BUN (7-17) mg/dL Creatinine (0.52-1.04) mg/dL Estimated GFR (>60) mL/min BUN/Creatinine Ratio (6-22) Glucose (80-110) mg/dL Lactate (0.7-2.1) mmol/L Calcium (8.4-10.2) mg/dL Phosphorus (2.8-4.1) mg/dL Magnesium (1.6-2.3) mg/dL Total Bilirubin (0.2-1.3) mg/dL AST (14-36) IU/L ALT (<35) IU/L Alkaline Phosphatase (38-126) U/L Total Creatine Kinase 87 (30-135) U/L CK-MB (CK-2) TNP CK-MB (CK-2) Rel Index TNP Troponin I 0.332 H* (0.01-0.034) ng/mL Total Protein (6.3-8.2) g/dL Albumin (3.5-5.0) g/dL Globulin (1.7-4.1) g/dL Albumin/Globulin Ratio (1.0-2.8) Lipase (23-300) U/L Urine Color Yellow Urine Appearance Clear Urine pH 5.0 (4.5-8.0) Ur Specific Norton <=1.005 (1.000-1.035) Urine Protein Negative (Negative) Urine Glucose (UA) Negative (Negative) g/dL Urine Ketones Negative (NEGATIVE) Urine Occult Blood Trace-lysed (Negative) Urine Nitrate Negative (Negative) Urine Bilirubin Negative (NEGATIVE) Urine Urobilinogen 0.2 (0.2) E.U./dL Ur Leukocyte Esterase Negative (NEGATIVE) Urine RBC 0-1/hpf D (0-5/HPF) Urine WBC 0-1/hpf (0-5/HPF) Ur Squamous Epith Cells None seen (0-5/HPF) Urine Bacteria None seen (None) Ur Culture Indicated? Cult not indicated SARS-CoV-2 (PCR) (Negative) 07/25/22 Range/Units 15:57 WBC (4.5-11.0) X10^3/uL RBC (4.0-5.2) X10^6/uL Hgb (12.0-16.0) g/dL Hct (36-46) % MCV (80-100) fL MCH (26-34) PG MCHC (30-36) % RDW (11.6-14.8) % Plt Count (150-400) X10^3/uL Neut % (Auto) (50-75) % Lymph % (Auto) (25-40) % [place] % (Auto) (3-14) % Eos % (Auto) (2-4) % Baso % (Auto) (0-2) % Neut # (Auto) (1382-2939) /uL Lymph # (Auto) (3185-8614) /uL [place] # (Auto) (0-900) /uL Eos # (Auto) (0-450) /uL Baso # (Auto) (0-100) /uL PT (10.1-12.7) SECONDS INR (0.9-1.3) APTT (26.4-36.2) SECONDS D-Dimer < 200 (<230) ng/mL Sodium (137-145) mmol/L Potassium (3.4-5.1) mmol/L Chloride (98-107) mmol/L Carbon Dioxide (22-32) mmol/L BUN (7-17) mg/dL Creatinine (0.52-1.04) mg/dL Estimated GFR (>60) mL/min BUN/Creatinine Ratio (6-22) Glucose (80-110) mg/dL Lactate (0.7-2.1) mmol/L Calcium (8.4-10.2) mg/dL Phosphorus (2.8-4.1) mg/dL Magnesium (1.6-2.3) mg/dL Total Bilirubin (0.2-1.3) mg/dL AST (14-36) IU/L ALT (<35) IU/L Alkaline Phosphatase (38-126) U/L Total Creatine Kinase (30-135) U/L CK-MB (CK-2) CK-MB (CK-2) Rel Index Troponin I (0.01-0.034) ng/mL Total Protein (6.3-8.2) g/dL Albumin (3.5-5.0) g/dL Globulin (1.7-4.1) g/dL Albumin/Globulin Ratio (1.0-2.8) Lipase (23-300) U/L Urine Color Urine Appearance Urine pH (4.5-8.0) Ur Specific [place] (1.000-1.035) Urine Protein (Negative) Urine Glucose (UA) (Negative) g/dL Urine Ketones (NEGATIVE) Urine Occult Blood (Negative) Urine Nitrate (Negative) Urine Bilirubin (NEGATIVE) Urine Urobilinogen (0.2) E.U./dL Ur Leukocyte Esterase (NEGATIVE) Urine RBC (0-5/HPF) Urine WBC (0-5/HPF) Ur Squamous Epith Cells (0-5/HPF) Urine Bacteria (None) Ur Culture Indicated? SARS-CoV-2 (PCR) (Negative) Imaging Data Chest x-ray: Radiologist's Impression: PROCEDURE:? XR CHEST 2V ? INDICATIONS:? chest pain ? TECHNIQUE:? 2 views of the chest were acquired.? ? COMPARISON:? [facility], CR, XR CHEST 2V, 04/28/2019, 9:27. ? FINDINGS:? ? Surgical changes and devices:? None.? ? Lungs and pleura:? Lungs are clear.? No pleural effusions or pneumothorax.? ? Mediastinum:? Mediastinal contours are normal.? Heart size is normal.? ? Bones and chest wall:? No suspicious bony abnormalities.? Soft tissues appear unremarkable.? ? IMPRESSION:? No acute process. ? ? Dictated by: Dixie Ames M.D. on 04/17/2022 at 14:28 ? ? Approved by: Dixie Ames M.D. on 04/17/2022 at 14:29 ? CT scan - abdomen/pelvis: Radiologist's Impression: PROCEDURE:? CT ABDOMEN PELVIS W CON ? INDICATIONS:? LLQ pain;?kidney stones;?diverticulitis ? TECHNIQUE:? After the administration of oral and IV contrast, axial sections were acquired from the lung bases to the pubic symphysis.? Coronal and sagittal reformats were performed.? For radiation dose reduction, the following was used:? automated exposure control, adjustment of mA and/or kV according to patient size. ? COMPARISON:? [facility], CT, CT ABDOMEN PELVIS W CON, 11/17/2021, 9:53. ? FINDINGS:? Image quality:? Excellent.? ? Lung bases:? In atelectasis at lung bases.? There is a moderate-sized hiatal hernia.? Heart:? Size.? No pericardial effusion.? There is a 0.9 x 1.3 cm right pericardial lymph node. ? ? ABDOMEN: Liver:? Normal size.? Hepatic steatosis.? ? Gallbladder:? Surgically absent.? ? Biliary ducts:? Intrahepatic and extrahepatic biliary dilation.? Common bile duct measures up to 12 mm? ? Pancreas:? Unremarkable.? ? Spleen:? Unremarkable.? ? Adrenal Glands:? Unremarkable.? ? Kidneys and Ureters:? Unremarkable.? ? ? Stomach and Bowel:? Stomach, small bowel loops, and colon are normal in caliber.? Diverticulosis without acute diverticulitis. Peritoneum:? No abnormal intraperitoneal fluid.? No free air.? ? Ventral Wall: ? A [id number] sized periumbilical ventral hernia is identified left of the midline, containing a short segment of small intestine.? The hernia has enlarged since 11/17/2021.? Previously it only contains omental fat. ? There is a 1.9 x 3.0 x 6.2 cm thick-walled cystic structure along the midline surgical scar in the anterior abdominal wall, unchanged in size and appearance. Abdominal Nodes:? 1.4 cm gastrohepatic ligament lymph node.? Vessels:? Aorta and inferior vena cava are normal in size.? Atherosclerosis. ? PELVIS: Pelvic Organs:? Unremarkable.? ? Bladder:? Unremarkable.? ? Pelvic Nodes: No enlarged lymph nodes.? Miscellaneous: No inguinal hernias are seen. ? ? ? Bones:? Anterolisthesis of L4 on L5.? ? Degenerative changes in lumbar spine. ? ? IMPRESSION:? ? 1. Severe diverticulosis.? No acute diverticulitis. 2. No renal stone or hydronephrosis. 3. A [id number] sized periumbilical ventral hernia left of the midline, increased in size since 11/17/2021.? It contains a loop of small intestine (previously 8 contains only omental fat). 4. A 1.9 x 3.0 x 6.2 cm thick-walled cystic structure along midline surgical scar in the anterior abdominal wall, unchanged in size or appearance.? It is most likely granulation tissue with inclusion cyst or seroma. 5. A moderate-sized hiatal hernia. 6. Hepatic steatosis. 7.? Cholecystectomy.? There is intrahepatic and extrahepatic biliary dilation, most likely secondary to postsurgical change.? Please correlate with serum bilirubin. ? ? ? Dictated by: Racquel Palomares M.D. on 04/17/2022 at 14:27 ? ? Approved by: Racquel Palomares M.D. on 04/17/2022 at 15:04 ? MDM Narrative Medical decision making narrative: 76-year-old female with past medical history breast cancer, on anastrozole, obstructive sleep apnea, diverticulosis, adenoma this polyp of the colon presents to the ED with 2 days of left lower quadrant pain. Concern for pyelonephritis versus UTI versus kidney stones versus diverticulitis versus hernia versus bowel obstruction versus other intra-abdominal pathology. Will obtain labs, lipase, CT abdomen pelvis. Patient denies nausea and pain at the time of exam, declines medications. Will reassess. Hypokalemia to 2.9, will supplement with p.o. potassium. Will obtain magnesium and phosphate levels as well. EKG with some ST depressions in V3, V4 and V5. Repleted potassium 40 mEq p.o.. Troponin was obtained, elevated to 0.094. Patient denies chest pain. Second troponin was obtained 2 hours later, elevated to 0.332. Mails Supervisor Dr. Jolly was consulted, he recommends admitting the patient overnight, obtaining an echocardiogram tomorrow. Given patient does not have any chest pain, he thinks unlikely nSTEMI. Is okay with aspirin and heparin. Aspirin 325 chewable given to patient. Heparin drip started. CT abdomen pelvis without acute findings other than a a periumbilical ventral hernia which contains a loop of small intestine. Hospitalist Dr. Partt was consulted, he accepts to admit the patient to the inpatient service. Discussed findings and plan with patient. Patient and patient's verbalized understanding. Patient continues to be stable in the ED. Patient was admitted. <Marleni Bell, - Last Filed: 04/18/22 07:18> Lab Data Labs: Lab Results 04/17/22 04/17/22 04/17/22 Range/Units 12:35 12:35 12:35 WBC 8.7 (4.5-11.0) X10^3/uL RBC 4.19 (4.0-5.2) X10^6/uL Hgb 12.5 (12.0-16.0) g/dL Hct 35.6 L (36-46) % MCV 85.0 (80-100) fL MCH 29.8 (26-34) PG MCHC 35.0 (30-36) % RDW 12.9 (11.6-14.8) % Plt Count 226 (150-400) X10^3/uL Neut % (Auto) 68.3 (50-75) % Lymph % (Auto) 21.2 L (25-40) % [place] % (Auto) 7.2 (3-14) % Eos % (Auto) 2.5 (2-4) % Baso % (Auto) 0.8 (0-2) % Neut # (Auto) 5900 (1969-9452) /uL Lymph # (Auto) 1800 (6100-6153) /uL [place] # (Auto) 600 (0-900) /uL Eos # (Auto) 200 (0-450) /uL Baso # (Auto) 100 (0-100) /uL PT (10.1-12.7) SECONDS INR (0.9-1.3) APTT (26.4-36.2) SECONDS D-Dimer (<230) ng/mL Sodium 135 L (137-145) mmol/L Potassium 2.9 L (3.4-5.1) mmol/L Chloride 95 L (98-107) mmol/L Carbon Dioxide 32 (22-32) mmol/L BUN 10 (7-17) mg/dL Creatinine 0.64 (0.52-1.04) mg/dL Estimated GFR > 60 (>60) mL/min BUN/Creatinine Ratio 15.6 (6-22) Glucose 107 (80-110) mg/dL Lactate (0.7-2.1) mmol/L Calcium 8.5 (8.4-10.2) mg/dL Phosphorus 3.6 (2.8-4.1) mg/dL Magnesium 2.0 (1.6-2.3) mg/dL Total Bilirubin 0.5 (0.2-1.3) mg/dL AST 27 (14-36) IU/L ALT 15 (<35) IU/L Alkaline Phosphatase 78 (38-126) U/L Total Creatine Kinase (30-135) U/L CK-MB (CK-2) CK-MB (CK-2) Rel Index Troponin I (0.01-0.034) ng/mL Total Protein 6.3 (6.3-8.2) g/dL Albumin 3.9 (3.5-5.0) g/dL Globulin 2.4 (1.7-4.1) g/dL Albumin/Globulin Ratio 1.6 (1.0-2.8) Lipase 61 (23-300) U/L Urine Color Urine Appearance Urine pH (4.5-8.0) Ur Specific [place] (1.000-1.035) Urine Protein (Negative) Urine Glucose (UA) (Negative) g/dL Urine Ketones (NEGATIVE) Urine Occult Blood (Negative) Urine Nitrate (Negative) Urine Bilirubin (NEGATIVE) Urine Urobilinogen (0.2) E.U./dL Ur Leukocyte Esterase (NEGATIVE) Urine RBC (0-5/HPF) Urine WBC (0-5/HPF) Ur Squamous Epith Cells (0-5/HPF) Urine Bacteria (None) Ur Culture Indicated? SARS-CoV-2 (PCR) (Negative) 04/17/22 04/17/22 04/17/22 Range/Units 12:35 12:35 13:09 WBC (4.5-11.0) X10^3/uL RBC (4.0-5.2) X10^6/uL Hgb (12.0-16.0) g/dL Hct (36-46) % MCV (80-100) fL MCH (26-34) PG MCHC (30-36) % RDW (11.6-14.8) % Plt Count (150-400) X10^3/uL Neut % (Auto) (50-75) % Lymph % (Auto) (25-40) % [place] % (Auto) (3-14) % Eos % (Auto) (2-4) % Baso % (Auto) (0-2) % Neut # (Auto) (9917-9102) /uL Lymph # (Auto) (6711-0014) /uL [place] # (Auto) (0-900) /uL Eos # (Auto) (0-450) /uL Baso # (Auto) (0-100) /uL PT (10.1-12.7) SECONDS INR (0.9-1.3) APTT (26.4-36.2) SECONDS D-Dimer (<230) ng/mL Sodium (137-145) mmol/L Potassium (3.4-5.1) mmol/L Chloride (98-107) mmol/L Carbon Dioxide (22-32) mmol/L BUN (7-17) mg/dL Creatinine (0.52-1.04) mg/dL Estimated GFR (>60) mL/min BUN/Creatinine Ratio (6-22) Glucose (80-110) mg/dL Lactate 1.3 (0.7-2.1) mmol/L Calcium (8.4-10.2) mg/dL Phosphorus (2.8-4.1) mg/dL Magnesium (1.6-2.3) mg/dL Total Bilirubin (0.2-1.3) mg/dL AST (14-36) IU/L ALT (<35) IU/L Alkaline Phosphatase (38-126) U/L Total Creatine Kinase 94 (30-135) U/L CK-MB (CK-2) TNP CK-MB (CK-2) Rel Index TNP Troponin I 0.094 H (0.01-0.034) ng/mL Total Protein (6.3-8.2) g/dL Albumin (3.5-5.0) g/dL Globulin (1.7-4.1) g/dL Albumin/Globulin Ratio (1.0-2.8) Lipase (23-300) U/L Urine Color Urine Appearance Urine pH (4.5-8.0) Ur Specific [place] (1.000-1.035) Urine Protein (Negative) Urine Glucose (UA) (Negative) g/dL Urine Ketones (NEGATIVE) Urine Occult Blood (Negative) Urine Nitrate (Negative) Urine Bilirubin (NEGATIVE) Urine Urobilinogen (0.2) E.U./dL Ur Leukocyte Esterase (NEGATIVE) Urine RBC (0-5/HPF) Urine WBC (0-5/HPF) Ur Squamous Epith Cells (0-5/HPF) Urine Bacteria (None) Ur Culture Indicated? SARS-CoV-2 (PCR) Negative (Negative) 04/17/22 04/17/22 04/17/22 Range/Units 14:39 15:30 15:57 WBC (4.5-11.0) X10^3/uL RBC (4.0-5.2) X10^6/uL Hgb (12.0-16.0) g/dL Hct (36-46) % MCV (80-100) fL MCH (26-34) PG MCHC (30-36) % RDW (11.6-14.8) % Plt Count (150-400) X10^3/uL Neut % (Auto) (50-75) % Lymph % (Auto) (25-40) % [place] % (Auto) (3-14) % Eos % (Auto) (2-4) % Baso % (Auto) (0-2) % Neut # (Auto) (6870-0330) /uL Lymph # (Auto) (1174-1922) /uL [place] # (Auto) (0-900) /uL Eos # (Auto) (0-450) /uL Baso # (Auto) (0-100) /uL PT 11.5 (10.1-12.7) SECONDS INR 1.0 (0.9-1.3) APTT 29 (26.4-36.2) SECONDS D-Dimer (<230) ng/mL Sodium (137-145) mmol/L Potassium (3.4-5.1) mmol/L Chloride (98-107) mmol/L Carbon Dioxide (22-32) mmol/L BUN (7-17) mg/dL Creatinine (0.52-1.04) mg/dL Estimated GFR (>60) mL/min BUN/Creatinine Ratio (6-22) Glucose (80-110) mg/dL Lactate (0.7-2.1) mmol/L Calcium (8.4-10.2) mg/dL Phosphorus (2.8-4.1) mg/dL Magnesium (1.6-2.3) mg/dL Total Bilirubin (0.2-1.3) mg/dL AST (14-36) IU/L ALT (<35) IU/L Alkaline Phosphatase (38-126) U/L Total Creatine Kinase 87 (30-135) U/L CK-MB (CK-2) TNP CK-MB (CK-2) Rel Index TNP Troponin I 0.332 H* (0.01-0.034) ng/mL Total Protein (6.3-8.2) g/dL Albumin (3.5-5.0) g/dL Globulin (1.7-4.1) g/dL Albumin/Globulin Ratio (1.0-2.8) Lipase (23-300) U/L Urine Color Yellow Urine Appearance Clear Urine pH 5.0 (4.5-8.0) Ur Specific [place] <=1.005 (1.000-1.035) Urine Protein Negative (Negative) Urine Glucose (UA) Negative (Negative) g/dL Urine Ketones Negative (NEGATIVE) Urine Occult Blood Trace-lysed (Negative) Urine Nitrate Negative (Negative) Urine Bilirubin Negative (NEGATIVE) Urine Urobilinogen 0.2 (0.2) E.U./dL Ur Leukocyte Esterase Negative (NEGATIVE) Urine RBC 0-1/hpf D (0-5/HPF) Urine WBC 0-1/hpf (0-5/HPF) Ur Squamous Epith Cells None seen (0-5/HPF) Urine Bacteria None seen (None) Ur Culture Indicated? Cult not indicated SARS-CoV-2 (PCR) (Negative) 04/17/22 Range/Units 15:57 WBC (4.5-11.0) X10^3/uL RBC (4.0-5.2) X10^6/uL Hgb (12.0-16.0) g/dL Hct (36-46) % MCV (80-100) fL MCH (26-34) PG MCHC (30-36) % RDW (11.6-14.8) % Plt Count (150-400) X10^3/uL Neut % (Auto) (50-75) % Lymph % (Auto) (25-40) % [place] % (Auto) (3-14) % Eos % (Auto) (2-4) % Baso % (Auto) (0-2) % Neut # (Auto) (4036-3280) /uL Lymph # (Auto) (7038-4698) /uL [place] # (Auto) (0-900) /uL Eos # (Auto) (0-450) /uL Baso # (Auto) (0-100) /uL PT (10.1-12.7) SECONDS INR (0.9-1.3) APTT (26.4-36.2) SECONDS D-Dimer < 200 (<230) ng/mL Sodium (137-145) mmol/L Potassium (3.4-5.1) mmol/L Chloride (98-107) mmol/L Carbon Dioxide (22-32) mmol/L BUN (7-17) mg/dL Creatinine (0.52-1.04) mg/dL Estimated GFR (>60) mL/min BUN/Creatinine Ratio (6-22) Glucose (80-110) mg/dL Lactate (0.7-2.1) mmol/L Calcium (8.4-10.2) mg/dL Phosphorus (2.8-4.1) mg/dL Magnesium (1.6-2.3) mg/dL Total Bilirubin (0.2-1.3) mg/dL AST (14-36) IU/L ALT (<35) IU/L Alkaline Phosphatase (38-126) U/L Total Creatine Kinase (30-135) U/L CK-MB (CK-2) CK-MB (CK-2) Rel Index Troponin I (0.01-0.034) ng/mL Total Protein (6.3-8.2) g/dL Albumin (3.5-5.0) g/dL Globulin (1.7-4.1) g/dL Albumin/Globulin Ratio (1.0-2.8) Lipase (23-300) U/L Urine Color Urine Appearance Urine pH (4.5-8.0) Ur Specific [place] (1.000-1.035) Urine Protein (Negative) Urine Glucose (UA) (Negative) g/dL Urine Ketones (NEGATIVE) Urine Occult Blood (Negative) Urine Nitrate (Negative) Urine Bilirubin (NEGATIVE) Urine Urobilinogen (0.2) E.U./dL Ur Leukocyte Esterase (NEGATIVE) Urine RBC (0-5/HPF) Urine WBC (0-5/HPF) Ur Squamous Epith Cells (0-5/HPF) Urine Bacteria (None) Ur Culture Indicated? SARS-CoV-2 (PCR) (Negative) ECG Data Interpretation: [place]- EKG 1. Sinus rhythm Discharge Plan Departure Patient Disposition: Admitted As Inpatient Clinical Impression: Non-ST elevation (NSTEMI) myocardial infarction Admit Date/Time: 04/17/22 16:13 Admit Provider: Uli Pratt <Marleni Bell DO - Last Filed: 04/18/22 07:18> Cosign ED Attending Cosignature Attestation: Patient seen evaluated by myself. She presents with left lower quadrant pain. She has been having shortness of breath with exertion for some time it seemed to be significantly worse today. EKG does show worsening ST depression V4 V5 repeat EKG shows actually more pronounced ST depression V3 V4 and V5. No ST elevations. Troponin 1st troponin 0.1 repeat troponin 0.3. Patient is not having active chest pain. She is elderly with hypertension risk factors and shortness of breath with exertion. Concern for acute coronary syndrome. Patient is not severely septic she is not in renal failure no other explanation for EKG changes and positive troponin. D-dimer is also negative his unlikely to be any pulmonary embolism. I personally spoke with Dr. Hoffman who did not believe that this was cardiac in nature despite EKG changes positive troponin shortness of breath on exertion in an elderly female. Unless patient is started on heparin admitted to Dr. Pratt. I was immediately available in the department for consultation. Documentation has been reviewed. I agree with assessment and plan.
[2022-04-17 12:56] LABS: Add Manual Diff / Slide Review NO; Basophils Absolute Auto 100 /uL (0-100); Basophils Percent Auto 0.8 % (0-2); Eosinophils Absolute Auto 200 /uL (0-450); Eosinophils Percent Auto 2.5 % (2-4); Hematocrit 35.6 % (36-46); Hemoglobin 12.5 g/dL (12.0-16.0); Lymphocytes Absolute Auto 1800 /uL (1100-4500); Lymphocytes Percent Auto 21.2 % (25-40); Mean Corpuscular Hemoglobin 29.8 PG (26-34); Monocytes Absolute Auto 600 /uL (0-900); Monocytes Percent Auto 7.2 % (3-14); Neutrophils Absolute Auto 5900 /uL (1500-7000); Neutrophils Percent Auto 68.3 % (50-75); Platelet Count 226 X10^3/uL (150-400); Red Blood Cell Count 4.19 X10^6/uL (4.0-5.2); Red Cell Distribution Width 12.9 % (11.6-14.8); White Blood Cell Count 8.7 X10^3/uL (4.5-11.0)
[2022-04-17 13:04] LABS: Alanine Aminotransferase 15 IU/L (<35); Albumin 3.9 g/dL (3.5-5.0); Albumin Globulin Ratio 1.6 (1.0-2.8); Alkaline Phosphatase 78 U/L (38-126); Aspartate Aminotransferase 27 IU/L (14-36); BUN Creatinine Ratio 15.6 (6-22); Bilirubin Total 0.5 mg/dL (0.2-1.3); Blood Urea Nitrogen 10 mg/dL (7-17); Calcium 8.5 mg/dL (8.4-10.2); Carbon Dioxide 32 mmol/L (22-32); Chloride 95 mmol/L (98-107); Estimated Glomerular Filt Rate > 60 mL/min (>60); Globulin 2.4 g/dL (1.7-4.1); Glucose 107 mg/dL (80-110); HEMOLYSIS < 15 (0-50); Lipase 61 U/L (23-300); Potassium 2.9 mmol/L (3.4-5.1); Sodium 135 mmol/L (137-145); Total Protein 6.3 g/dL (6.3-8.2)
[2022-04-17 13:26] LABS: COVID19 -Nasal RAPID Negative (Negative)
[2022-04-17 13:37] LABS: Phosphorous 3.6 mg/dL (2.8-4.1)
--- NOTE | 2022-04-17 13:42 | DI.CT.S_ITS ---
PROCEDURE: CT ABDOMEN PELVIS W CON INDICATIONS: LLQ pain;?kidney stones;?diverticulitis TECHNIQUE: After the administration of oral and IV contrast, axial sections were acquired from the lung bases to the pubic symphysis. Coronal and sagittal reformats were performed. For radiation dose reduction, the following was used: automated exposure control, adjustment of mA and/or kV according to patient size. COMPARISON: [facility], CT, CT ABDOMEN PELVIS W CON, 11/17/2021, 9:53. FINDINGS: Image quality: Excellent. Lung bases: In atelectasis at lung bases. There is a moderate-sized hiatal hernia. Heart: Size. No pericardial effusion. There is a 0.9 x 1.3 cm right pericardial lymph node. ABDOMEN: Liver: Normal size. Hepatic steatosis. Gallbladder: Surgically absent. Biliary ducts: Intrahepatic and extrahepatic biliary dilation. Common bile duct measures up to 12 mm Pancreas: Unremarkable. Spleen: Unremarkable. Adrenal Glands: Unremarkable. Kidneys and Ureters: Unremarkable. Stomach and Bowel: Stomach, small bowel loops, and colon are normal in caliber. Diverticulosis without acute diverticulitis. Peritoneum: No abnormal intraperitoneal fluid. No free air. Ventral Wall: A crrrl-wi-igzmawsb sized periumbilical ventral hernia is identified left of the midline, containing a short segment of small intestine. The hernia has enlarged since 11/17/2021. Previously it only contains omental fat. There is a 1.9 x 3.0 x 6.2 cm thick-walled cystic structure along the midline surgical scar in the anterior abdominal wall, unchanged in size and appearance. Abdominal Nodes: 1.4 cm gastrohepatic ligament lymph node. Vessels: Aorta and inferior vena cava are normal in size. Atherosclerosis. PELVIS: Pelvic Organs: Unremarkable. Bladder: Unremarkable. Pelvic Nodes: No enlarged lymph nodes. Miscellaneous: No inguinal hernias are seen. Bones: Anterolisthesis of L4 on L5. Degenerative changes in lumbar spine. IMPRESSION: 1. Severe diverticulosis. No acute diverticulitis. 2. No renal stone or hydronephrosis. 3. A nijyj-bq-rpahihsw sized periumbilical ventral hernia left of the midline, increased in size since 11/17/2021. It contains a loop of small intestine (previously 8 contains only omental fat). 4. A 1.9 x 3.0 x 6.2 cm thick-walled cystic structure along midline surgical scar in the anterior abdominal wall, unchanged in size or appearance. It is most likely granulation tissue with inclusion cyst or seroma. 5. A moderate-sized hiatal hernia. 6. Hepatic steatosis. 7. Cholecystectomy. There is intrahepatic and extrahepatic biliary dilation, most likely secondary to postsurgical change. Please correlate with serum bilirubin. Dictated by: Racquel Palomares M.D. on 04/17/2022 at 14:27 Approved by: Racquel Palomares M.D. on 04/17/2022 at 15:04
--- NOTE | 2022-04-17 13:47 | DI.RAD.S_ITS ---
PROCEDURE: XR CHEST 2V INDICATIONS: chest pain TECHNIQUE: 2 views of the chest were acquired. COMPARISON: [facility], CR, XR CHEST 2V, 04/28/2019, 9:27. FINDINGS: Surgical changes and devices: None. Lungs and pleura: Lungs are clear. No pleural effusions or pneumothorax. Mediastinum: Mediastinal contours are normal. Heart size is normal. Bones and chest wall: No suspicious bony abnormalities. Soft tissues appear unremarkable. IMPRESSION: No acute process. Dictated by: Dixie Ames M.D. on 04/17/2022 at 14:28 Approved by: Dixie Ames M.D. on 04/17/2022 at 14:29
[2022-04-17] MEDS: POTASSIUM CHLORIDE 20 MEQ TAB 40 MEQ PO (13:51)
[2022-04-17] MEDS: ONDANSETRON 4 MG/2 ML INJ IV (13:56)
[2022-04-17 14:09] LABS: Creatine Kinase 94 U/L (30-135)
[2022-04-17 14:23] LABS: Troponin I 0.094 ng/mL (0.01-0.034)
[2022-04-17 14:57] LABS: Creatine Kinase 87 U/L (30-135)
[2022-04-17 15:27] LABS: Lactate (Lactic Acid) 1.3 mmol/L (0.7-2.1)
[2022-04-17 15:35] LABS: Troponin I 0.332 ng/mL (0.01-0.034)
[2022-04-17] MEDS: ASPIRIN 81 MG CHEW TAB 324 MG PO (15:46)
[2022-04-17] MEDS: HEPARIN 5,000 UNIT/ML VIAL 5000 UNIT IV (15:47)
[2022-04-17] MEDS: HEPARIN DRIP 25,000 UNIT/500 ML IV.SOLN 19.595 UNIT IV (15:48)
[2022-04-17 16:02] LABS: Prothrombin Time 11.5 SECONDS (10.1-12.7)
[2022-04-17 16:04] LABS: PTT Partial Thromboplastin Tim 29 SECONDS (26.4-36.2)
--- NOTE | 2022-04-17 16:50 | P.HP_ITS ---
History of Present Illness History of Present Illness Date Patient Seen: 04/17/22 Time Patient Seen: 16:51 Chief complaint: vomiting/abd. pain Narrative: 76-year-old female with breast cancer being treated with hormonal therapy admitted via emergency department with left lower quadrant pain some diarrhea. Recently treated for UTI with resolution of symptoms. As part of her ER evaluation she was found to have a borderline elevated troponin and some subtle possible ST-T segment changes on her anterior leads on her ECG Patient reports some emesis and maybe some diarrhea times as well Lab work showed a low potassium at 2.9 CT scan of the abdomen and pelvis essentially unremarkable, no diverticulitis although significant diverticulosis and a left-sided periumbilical hernia containing loops small bowel. Urinalysis pending. Patient History Medical History Breast cancer, left breast Breast cancer, right breast Cancer of left breast, stage 1, estrogen receptor positive Cataract of both eyes (01/20/16) Cataracts, bilateral (Unknown) CPAP (continuous positive airway pressure) dependence Diverticulosis Former smoker H/O adenomatous polyp of colon High risk medication use History of hyperlipidemia (01/20/16) Hx of breast cancer (1995) Hx of hyperlipidemia (Unknown) Left knee pain (06/23/16) Obstructive sleep apnea Seborrheic dermatitis of scalp Ventral hernia Surgical History History of ankle surgery History of section History of colonoscopy History of hysterectomy Hx of bilateral cataract extraction Hx of mastectomy (~2017) S/P breast reconstruction, right (~1996) Status post cholecystectomy Status post repair of ventral hernia (~01/2021) Family & Social History Family History Father No problems noted. Mother Cancer Gallstones Ovarian cancer Sister Hypertension Heart disease Social History: household members spouse Safety & Behavioral: Feels Safe in Current Yes Environment Been Physically Hurt or No Threatened By a Person Tobacco & Substance use: Smoking Status Former smoker alcohol intake never alcohol intake frequency holiday/special occasion Substance Use Type does not use Meds Home Medications and Allergies Home Medications Medication Instructions Recorded Confirmed Type omeprazole 20 mg tablet,delayed 20 mg PO DAILY 02/09/21 04/17/22 History release calcium carbonate 500 mg-vitamin 1 tab PO DAILY 02/15/21 04/17/22 History D3 5 mcg (200 unit) tablet (Calcium 500 + D) ResMed AirSense 10 Auto 12/29/21 12/29/21 History hydrochlorothiazide 25 mg tablet 25 mg PO DAILY #90 tabs 03/03/22 04/17/22 Rx anastrozole 1 mg tablet 1 mg PO DAILY #90 tabs 03/13/22 04/17/22 Rx Allergies Allergy/AdvReac Type Severity Reaction Status Date / Time No Known Drug Allergies Allergy Verified 04/17/22 12:11 Review of Systems Review of Systems ROS: Yes All systems reviewed with the patient and are negative except as otherwise documented Cardiovascular Cardiovascular: Denies chest pain, Denies chest pain with activity, Denies syncope, Denies lightheadedness, Denies radiating jaw, neck or arm pain, Denies palpitations, Denies dyspnea, Denies dyspnea on exertion, Denies orthopnea and Denies paroxysmal nocturnal dyspnea Respiratory Respiratory: Denies dyspnea and Denies dyspnea on exertion Neurologic Neurologic: Denies syncope Endocrine Endocrine: Denies palpitations Exam Vital Signs (past 8 hours): - 04/17/22 12:08 04/17/22 12:12 Temperature 97.6 F 98.8 F Pulse Rate 68 Respiratory Rate 16 Blood Pressure 150/77 H Pulse Oximetry 98 Oxygen Delivery Method Room Air Oxygen Delivery Method Room Air Narrative Exam Narrative: Younger than stated age appearing female in no obvious distress lying on a gurney in the emergency department HEENT-normocephalic atraumatic PERRLA EOMs intact Neck-no bruits Lungs-clear with good breath sounds Heart-regular rate and rhythm Abdomen-positive bowel tones soft nontender nondistended no hepatosplenomegaly, midline scar present, small periumbilical bulge/hernia without tenderness or anything else remarkable Extremities-no cyanosis clubbing or edema Neuro-alert orient x3 no focal findings Objective ECG Impression: 12 lead ECG essentially unchanged from previous, very subtle ST-T segment changes possible in lateral and anterior leads more likely related to lead positioning Labs Result Diagrams: 04/17/22 12:35 04/18/22 03:42 Labs: Laboratory Results - last 24 hr 04/17/22 04/17/22 04/17/22 12:35 12:35 12:35 WBC 8.7 RBC 4.19 Hgb 12.5 Hct 35.6 L MCV 85.0 MCH 29.8 MCHC 35.0 RDW 12.9 Plt Count 226 Neut % (Auto) 68.3 Lymph % (Auto) 21.2 L [place] % (Auto) 7.2 Eos % (Auto) 2.5 Baso % (Auto) 0.8 Neut # (Auto) 5900 Lymph # (Auto) 1800 [place] # (Auto) 600 Eos # (Auto) 200 Baso # (Auto) 100 PT INR APTT Sodium 135 L Potassium 2.9 L Chloride 95 L Carbon Dioxide 32 BUN 10 Creatinine 0.64 Estimated GFR > 60 BUN/Creatinine Ratio 15.6 Glucose 107 Lactate Calcium 8.5 Phosphorus 3.6 Magnesium 2.0 Total Bilirubin 0.5 AST 27 ALT 15 Alkaline Phosphatase 78 Total Creatine Kinase CK-MB (CK-2) CK-MB (CK-2) Rel Index Troponin I Total Protein 6.3 Albumin 3.9 Globulin 2.4 Albumin/Globulin Ratio 1.6 Lipase 61 SARS-CoV-2 (PCR) 04/17/22 04/17/22 04/17/22 12:35 12:35 13:09 WBC RBC Hgb Hct MCV MCH MCHC RDW Plt Count Neut % (Auto) Lymph % (Auto) [place] % (Auto) Eos % (Auto) Baso % (Auto) Neut # (Auto) Lymph # (Auto) [place] # (Auto) Eos # (Auto) Baso # (Auto) PT INR APTT Sodium Potassium Chloride Carbon Dioxide BUN Creatinine Estimated GFR BUN/Creatinine Ratio Glucose Lactate 1.3 Calcium Phosphorus Magnesium Total Bilirubin AST ALT Alkaline Phosphatase Total Creatine Kinase 94 CK-MB (CK-2) TNP CK-MB (CK-2) Rel Index TNP Troponin I 0.094 H Total Protein Albumin Globulin Albumin/Globulin Ratio Lipase SARS-CoV-2 (PCR) Negative 04/17/22 04/17/22 14:39 15:57 WBC RBC Hgb Hct MCV MCH MCHC RDW Plt Count Neut % (Auto) Lymph % (Auto) [place] % (Auto) Eos % (Auto) Baso % (Auto) Neut # (Auto) Lymph # (Auto) [place] # (Auto) Eos # (Auto) Baso # (Auto) PT 11.5 INR 1.0 APTT 29 Sodium Potassium Chloride Carbon Dioxide BUN Creatinine Estimated GFR BUN/Creatinine Ratio Glucose Lactate Calcium Phosphorus Magnesium Total Bilirubin AST ALT Alkaline Phosphatase Total Creatine Kinase 87 CK-MB (CK-2) TNP CK-MB (CK-2) Rel Index TNP Troponin I 0.332 H* Total Protein Albumin Globulin Albumin/Globulin Ratio Lipase SARS-CoV-2 (PCR) Assessment & Plan Assessment & Plan narrative: 1. Non ST-elevation NE-patient with abnormal troponin that went up slightly on repeat. Settle if real changes on ECG. Changes on ECG could be more positional than anything else other words lead position. ER physician consulted with Cardiology on-call who was not convinced this was a cardiac presentation but recommended admission possible heparin cessation and echocardiography as well as trending labs and ECG This point she is been on heparin unfractionated intravenously will continue that while we trend her troponin and EKG. 2. Abdominal symptoms-question whether related to her left-sided periumbilical ventral hernia now contains a small loop of bowel. This seems like the most likely source of symptoms, at least abdominal pain. Does not show evidence of bowel obstruction her anything more significant at this point. White count was normal. Continue to monitor her GI symptoms. I will allow her to have a heart healthy diet once I am more convinced that her cardiac issue is not serious, by her troponin remaining relatively stable or decreasing 3. Hypokalemia-likely secondary to some mild diarrhea and emesis. Will replace parenterally as well as orally. Will carefully rehydrate her as well 4. Breast cancer-continue patient's hormonal therapy 5. Sleep apnea-continue patient on CPAP using home device if available 6. VTE prophylaxis-patient fully anticoagulated with unfractionated heparin for cardiac issue as above. No additional prophylaxis appropriate 7. Code status-patient appropriate for full code status COVID-19 COVID-19 status: Negative Result date/Date tested (Pos, Neg/Pending): 04/17/22
[2022-04-17 16:57] LABS: D Dimer < 200 ng/mL (<230)
--- NOTE | 2022-04-17 17:52 | PC.NURSE ---
Patient admitted from ER to room 224. Dawood RN assisted with admission. Patient is alert and oriented, sitting at bedside in no acute distress at this time. Denies chest pain, shortness of breath, abdominal pain. Reports an appetite and asking to eat dinner. Sinus rhythm on telemetry. Heparin gtt infusing as ordered, starting in ER, continues. Patient oriented to room and call light and call light placed within reach.
[2022-04-17 18:05] LABS: Appearance Urine UA CLEAR; Bilirubin Urine UA NEGATIVE (NEGATIVE); Color Urine UA YELLOW; Glucose Urine UA NEGATIVE (Negative); Ketones Urine UA NEGATIVE (NEGATIVE); Leukocyte Esterase Urine UA NEGATIVE (NEGATIVE); Nitrite Urine UA NEGATIVE (Negative); Occult Blood Urine UA TRACE-LYSED (Negative); Protein Urine UA NEGATIVE (Negative); Specific Gravity Urine UA <=1.005 (1.000-1.035); Urobilinogen Urine UA 0.2 E.U./dL (0.2)
[2022-04-17] MEDS: POTASSIUM CHLORIDE 20 MEQ in DEXTROSE 5%-0.45% NS 1,000 ML 100 MEQ IV (18:08)
[2022-04-17] MEDS: POTASSIUM CHLORIDE 20 MEQ TAB PO (18:09)
[2022-04-17 18:44] LABS: Bacteria Urine None Seen; Culture Indicated Urine Cult Not Indicated; RBC Urine 0-1/HPF (0-5/HPF); Squamous Epithelial Cell Urine None Seen (0-5/HPF); WBC Urine 0-1/HPF (0-5/HPF)
[2022-04-17] MEDS: MORPHINE 2 MG/ML INJ IV (20:02)
[2022-04-17 22:11] LABS: PTT Partial Thromboplastin Tim 90 SECONDS (26.4-36.2)
[2022-04-17 22:27] LABS: Troponin I 0.137 ng/mL (0.01-0.034)
[2022-04-18 03:00] VITALS: BP 121/59; PULSE 58; RESP 17; TEMP 36.8; O2SAT 96
[2022-04-18] MEDS: POTASSIUM CHLORIDE 20 MEQ in DEXTROSE 5%-0.45% NS 1,000 ML 100 MEQ IV ×2 (03:47→13:55)
[2022-04-18 04:01] LABS: PTT Partial Thromboplastin Tim 62 SECONDS (26.4-36.2)
[2022-04-18 04:02] LABS: Blood Urea Nitrogen 9 mg/dL (7-17); Calcium 8.1 mg/dL (8.4-10.2); Carbon Dioxide 29 mmol/L (22-32); Chloride 99 mmol/L (98-107); Estimated Glomerular Filt Rate > 60 mL/min (>60); Glucose 121 mg/dL (80-110); HEMOLYSIS < 15 (0-50); Potassium 3.5 mmol/L (3.4-5.1); Sodium 135 mmol/L (137-145)
[2022-04-18 04:14] LABS: Troponin I 0.068 ng/mL (0.01-0.034)
--- NOTE | 2022-04-18 06:31 | PC.NURSE ---
Pt was able to sleep after CPAP was set up. No longer has pain, Troponin this am wnl, PTT 60 (HEPARIN GTT AT 850 UNITS, 17 ML/HR, next ptt tomorrow am per protocol), KCL this am 3.5, no nausea/vomiting/diarrhea tonight.
[2022-04-18] MEDS: PANTOPRAZOLE DR 20 MG TABLET PO (06:48)
[2022-04-18 07:00] VITALS: BP 121/57; PULSE 60; RESP 16; TEMP 36.7; O2SAT 96
--- NOTE | 2022-04-18 08:32 | P.PN_ITS ---
Subjective Subjective Date Patient Seen: 04/18/22 Time Patient Seen: 08:32 Interval history: Patient seen sitting up in her room working on eating breakfast. No abdominal or GI symptoms whatsoever. She is had no diarrhea no bowel movements no nausea no emesis no nothing No chest pain no other cardiac symptoms. Troponin peaked with the second number in the ER and is gone down steadily ever sense. She continues on intravenous unfractionated heparin. Exam Vital Signs (past 8 hours): - 04/18/22 03:00 04/18/22 07:00 Temperature 98.2 F 98.1 F Pulse Rate 58 L 60 Respiratory Rate 17 16 Blood Pressure 121/59 L 121/57 L Pulse Oximetry 96 96 Oxygen Flow Rate 0 0 Oxygen Delivery Method Room Air Oxygen Flow Rate 0 Objective Labs Result Diagrams: 04/17/22 12:35 04/18/22 03:42 Labs: Laboratory Results - last 24 hr 04/17/22 04/17/22 04/17/22 12:35 12:35 12:35 WBC 8.7 RBC 4.19 Hgb 12.5 Hct 35.6 L MCV 85.0 MCH 29.8 MCHC 35.0 RDW 12.9 Plt Count 226 Neut % (Auto) 68.3 Lymph % (Auto) 21.2 L [place] % (Auto) 7.2 Eos % (Auto) 2.5 Baso % (Auto) 0.8 Neut # (Auto) 5900 Lymph # (Auto) 1800 [place] # (Auto) 600 Eos # (Auto) 200 Baso # (Auto) 100 PT INR APTT D-Dimer Sodium 135 L Potassium 2.9 L Chloride 95 L Carbon Dioxide 32 BUN 10 Creatinine 0.64 Estimated GFR > 60 BUN/Creatinine Ratio 15.6 Glucose 107 Lactate Calcium 8.5 Phosphorus 3.6 Magnesium 2.0 Total Bilirubin 0.5 AST 27 ALT 15 Alkaline Phosphatase 78 Total Creatine Kinase CK-MB (CK-2) CK-MB (CK-2) Rel Index Troponin I Total Protein 6.3 Albumin 3.9 Globulin 2.4 Albumin/Globulin Ratio 1.6 Lipase 61 Urine Color Urine Appearance Urine pH Ur Specific [place] Urine Protein Urine Glucose (UA) Urine Ketones Urine Occult Blood Urine Nitrate Urine Bilirubin Urine Urobilinogen Ur Leukocyte Esterase Urine RBC Urine WBC Ur Squamous Epith Cells Urine Bacteria Ur Culture Indicated? SARS-CoV-2 (PCR) 04/17/22 04/17/2222 12:35 12:35 13:09 WBC RBC Hgb Hct MCV MCH MCHC RDW Plt Count Neut % (Auto) Lymph % (Auto) [place] % (Auto) Eos % (Auto) Baso % (Auto) Neut # (Auto) Lymph # (Auto) [place] # (Auto) Eos # (Auto) Baso # (Auto) PT INR APTT D-Dimer Sodium Potassium Chloride Carbon Dioxide BUN Creatinine Estimated GFR BUN/Creatinine Ratio Glucose Lactate 1.3 Calcium Phosphorus Magnesium Total Bilirubin AST ALT Alkaline Phosphatase Total Creatine Kinase 94 CK-MB (CK-2) TNP CK-MB (CK-2) Rel Index TNP Troponin I 0.094 H Total Protein Albumin Globulin Albumin/Globulin Ratio Lipase Urine Color Urine Appearance Urine pH Ur Specific [place] Urine Protein Urine Glucose (UA) Urine Ketones Urine Occult Blood Urine Nitrate Urine Bilirubin Urine Urobilinogen Ur Leukocyte Esterase Urine RBC Urine WBC Ur Squamous Epith Cells Urine Bacteria Ur Culture Indicated? SARS-CoV-2 (PCR) Negative 04/17/22 04/17/22 04/17/22 14:39 15:30 15:57 WBC RBC Hgb Hct MCV MCH MCHC RDW Plt Count Neut % (Auto) Lymph % (Auto) [place] % (Auto) Eos % (Auto) Baso % (Auto) Neut # (Auto) Lymph # (Auto) [place] # (Auto) Eos # (Auto) Baso # (Auto) PT 11.5 INR 1.0 APTT 29 D-Dimer Sodium Potassium Chloride Carbon Dioxide BUN Creatinine Estimated GFR BUN/Creatinine Ratio Glucose Lactate Calcium Phosphorus Magnesium Total Bilirubin AST ALT Alkaline Phosphatase Total Creatine Kinase 87 CK-MB (CK-2) TNP CK-MB (CK-2) Rel Index TNP Troponin I 0.332 H* Total Protein Albumin Globulin Albumin/Globulin Ratio Lipase Urine Color Yellow Urine Appearance Clear Urine pH 5.0 Ur Specific [place] <=1.005 Urine Protein Negative Urine Glucose (UA) Negative Urine Ketones Negative Urine Occult Blood Trace-lysed Urine Nitrate Negative Urine Bilirubin Negative Urine Urobilinogen 0.2 Ur Leukocyte Esterase Negative Urine RBC 0-1/hpf D Urine WBC 0-1/hpf Ur Squamous Epith Cells None seen Urine Bacteria None seen Ur Culture Indicated? Cult not indicated SARS-CoV-2 (PCR) 04/17/22 04/17/22 04/17/22 15:57 21:46 21:46 WBC RBC Hgb Hct MCV MCH MCHC RDW Plt Count Neut % (Auto) Lymph % (Auto) [place] % (Auto) Eos % (Auto) Baso % (Auto) Neut # (Auto) Lymph # (Auto) [place] # (Auto) Eos # (Auto) Baso # (Auto) PT INR APTT 90 H* D D-Dimer < 200 Sodium Potassium Chloride Carbon Dioxide BUN Creatinine Estimated GFR BUN/Creatinine Ratio Glucose Lactate Calcium Phosphorus Magnesium Total Bilirubin AST ALT Alkaline Phosphatase Total Creatine Kinase CK-MB (CK-2) CK-MB (CK-2) Rel Index Troponin I 0.137 H* Total Protein Albumin Globulin Albumin/Globulin Ratio Lipase Urine Color Urine Appearance Urine pH Ur Specific [place] Urine Protein Urine Glucose (UA) Urine Ketones Urine Occult Blood Urine Nitrate Urine Bilirubin Urine Urobilinogen Ur Leukocyte Esterase Urine RBC Urine WBC Ur Squamous Epith Cells Urine Bacteria Ur Culture Indicated? SARS-CoV-2 (PCR) 04/18/22 04/18/22 04/18/22 03:42 03:42 03:42 WBC RBC Hgb Hct MCV MCH MCHC RDW Plt Count Neut % (Auto) Lymph % (Auto) [place] % (Auto) Eos % (Auto) Baso % (Auto) Neut # (Auto) Lymph # (Auto) [place] # (Auto) Eos # (Auto) Baso # (Auto) PT INR APTT 62 H D D-Dimer Sodium 135 L Potassium 3.5 Chloride 99 Carbon Dioxide 29 BUN 9 Creatinine 0.60 Estimated GFR > 60 BUN/Creatinine Ratio 15.0 Glucose 121 H Lactate Calcium 8.1 L Phosphorus Magnesium Total Bilirubin AST ALT Alkaline Phosphatase Total Creatine Kinase CK-MB (CK-2) CK-MB (CK-2) Rel Index Troponin I 0.068 H Total Protein Albumin Globulin Albumin/Globulin Ratio Lipase Urine Color Urine Appearance Urine pH Ur Specific [place] Urine Protein Urine Glucose (UA) Urine Ketones Urine Occult Blood Urine Nitrate Urine Bilirubin Urine Urobilinogen Ur Leukocyte Esterase Urine RBC Urine WBC Ur Squamous Epith Cells Urine Bacteria Ur Culture Indicated? SARS-CoV-2 (PCR) [facility] Medical History Breast cancer, left breast Breast cancer, right breast Cancer of left breast, stage 1, estrogen receptor positive Cataract of both eyes (01/20/16) Cataracts, bilateral (Unknown) CPAP (continuous positive airway pressure) dependence Diverticulosis Former smoker H/O adenomatous polyp of colon High risk medication use History of hyperlipidemia (01/20/16) Hx of breast cancer (1995) Hx of hyperlipidemia (Unknown) Left knee pain (06/23/16) Obstructive sleep apnea Seborrheic dermatitis of scalp Ventral hernia Surgical History History of ankle surgery History of section History of colonoscopy History of hysterectomy Hx of bilateral cataract extraction Hx of mastectomy (~2017) S/P breast reconstruction, right (~1996) Status post cholecystectomy Status post repair of ventral hernia (~01/2021) Family History Father No problems noted. Mother Cancer Gallstones Ovarian cancer Sister Hypertension Heart disease Social History marital status: household members: spouse occupational status: previously employed Smoking Status: Former smoker Tobacco: How many years used: 20 second hand exposure: No alcohol intake: never substance use type: does not use Assessment & Plan Assessment & Plan narrative: 1. Cardiac-at this point I do not think patient actually had a myocardial infarction I am not sure what to make of that slight bump in her troponin. Certainly did not go up to a level that I would feel his consistent with actual infarction. Will obtain echocardiography and continue heparin that least until the echo has been reviewed. Patient probably deserves stress test at some point but I am not convinced she needs that prior to discharge from the hospital 2. GI-patient prominent GI symptoms which is what she presented with to the emergency department. CT showed evidence of periumbilical hernia with small loop of small intestine which is new since CT scan done in October of this year. That CT scan was done upon recommendation of a hernia specialist at the [facility]. I have reviewed those notes and at that time was not felt as though she needed any intervention but I am thinking her GI symptoms may well be more due to that (recurrent periumbilical/ventral hernia) given the changed appearance on recent imaging. She does not appear to be acute at this time with normal white count normal exam and assuming she can eat normally she can also probably be discharged on this basis to follow-up with her [facility] physician as an outpatient Time Spent With Patient Critical Care time: I spent a total of [] minutes of critical care time on this patient's care today; this time is exclusive of procedural time. Quality VTE Deep Vein Thrombosis/Pulmonary Embolism Present on Admission: No
[2022-04-18] MEDS: POTASSIUM CHLORIDE 20 MEQ TAB PO ×2 (08:35→13:05)
[2022-04-18] MEDS: ASPIRIN EC 81 MG TABLET PO (08:35)
[2022-04-18 11:00] VITALS: BP 117/61; PULSE 62; RESP 15; TEMP 37.2; O2SAT 98
--- NOTE | 2022-04-18 11:14 | CM.DANOTE ---
Initial Discharge Assessment Note: Case received, EMR reviewed. Met with patient in her room, introduced self and role. Payer: Medicare, [facility] PCP: Dr Uli Pratt 76 year old female admitted 04/17/22 pm to care of Dr Pratt. Patient admitted with N/V, LLQ pain (CT shows hernia), NSTEMI. . Her troponins are trending down, she is on heparin drip. Hx includes breast ca, treated with hormonal therapy. She will undergo an Echo today. Patient lives in [place] with supportive spouse Nehemias. At baseline, she is independent and drives. Plan: To return home to care of when medically stable. DCP to follow. Demetrice Woods RN/DCP Discharge Planning/Care Management CM Discharge Assessment Start: 04/18/22 11:12 Freq: Status: Active Protocol: Document 04/18/22 11:13 (Rec: 04/18/22 11:14 [id number]) Discharge Planning Assessment Advance Directives? Yes Advance Directives on File No History Provided By Patient Prior Living Arrangements Apartment/Condo Household Members spouse Type of transporation used prior to Drives own vehicle admit Independent with ADL's Yes Is patient alert and oriented? Yes Caregiver for Another No Barriers to Discharge No Discharge Plan Home Transportation Arrangement Spouse to transport patient in private vehicle to home on dc . Referrals Initiated None needed Whiteboard Updated in Patient Room with Yes name and ext. # of Ring Striker Review Status In Process Next Review Type Continued Stay Review
--- NOTE | 2022-04-18 11:23 | DI.ECHO.S_ITS ---
+ + Interpretation Summary STAT for Patient Discharge The patient was in normal sinus rhythm during the exam. Borderline hypertensive during exam The left ventricle is normal in size and wall thickness. The ejection fraction is estimated to be 60-65%. The left atrial size is normal. The right atrium is mildly dilated. There is mild mitral regurgitation. There is mild aortic regurgitation. There is mild tricuspid regurgitation. The right ventricular systolic pressure is estimated to be at least 25 mmHg based on an estimated right atrial pressure of 3 mm Hg. The IVC is of normal diameter and collapses greater than 50% with a sniff. This suggests a low right atrial pressure of 3 mm Hg. Similar to prior study on 07/01/2019 Procedure: A two-dimensional transthoracic echocardiogram with color flow and Doppler was performed. The study quality was technically adequate. Comparison is made with the echocardiogram of 07/01/2019. The patient was in normal sinus rhythm during the exam. Borderline hypertensive during exam. Left Ventricle: The left ventricle is normal in size and wall thickness. The ejection fraction is estimated to be 60-65%. Diastolic parameters suggest probable normal left ventricular diastolic function and normal filling pressures. Right Ventricle: The right ventricle is normal in size and function. Atria: The left atrial size is normal. The right atrium is mildly dilated. There is no Doppler evidence for an interatrial shunt. Mitral Valve: The mitral valve is normal in structure and function. There is mild mitral regurgitation. Aortic Valve: The aortic valve is trileaflet. The aortic valve opens well. There is no aortic valve stenosis. There is mild aortic regurgitation. Tricuspid Valve: The tricuspid valve is normal in structure and function. There is mild tricuspid regurgitation. The right ventricular systolic pressure is estimated to be at least 25 mmHg based on an estimated right atrial pressure of 3 mm Hg. Pulmonic Valve: The pulmonic valve leaflets are thin and pliable; valve motion is normal. There is mild pulmonic regurgitation. Great Vessels: The aortic root is normal size. The ascending aorta is at the upper limits of normal in size. The IVC is of normal diameter and collapses greater than 50% with a sniff. This suggests a low right atrial pressure of 3 mm Hg. Pericardium/ Pleura There is no pericardial effusion. There is no pleural effusion. MMode/2D Measurements & Calculations LVIDd: 4.6 cm LVOT diam: 2.3 cm LVIDs: 2.8 cm Ao root diam: 3.5 cm FS: 38.7 % asc Aorta Diam: 3.6 cm IVSd: 0.94 cm Ao Arch Diam (Prox Trans): 2.9 cm LVPWd: 0.70 cm LV wade. diameter/BSA (cm/m^2): 2.4 LV sys. diameter/BSA (cm/m^2): 1.5 LA A2 area: 20.6 cm2 RA long axis: 5.6 cm LA A4 area: 19.9 cm2 RA area: 22.0 cm2 LA length (vol): 5.6 cm RA vol: 73.2 ml LA vol: 61.8 ml RA : 39.1 ml/m2 LA vol index: 33.0 ml/m2 IVC diam: 1.4 cm RVD1 (basal): 3.6 cm RVD2 (mid): 3.4 cm TAPSE: 1.7 cm Doppler Measurements & Calculations Ao V2 max: 116.3 cm/sec LVOT Max David: 115.1 cm/sec Ao V2 mean: 88.0 cm/sec LV V1 max P.3 mmHg Ao max P.4 mmHg LV V1 VTI: 25.6 cm Ao mean P.4 mmHg RICKY(I,D): 3.9 cm2 Ao V2 VTI: 27.1 cm RICKY(V,D): 4.0 cm2 sev ratio: 0.94 RICKY indexed to BSA (cm^2/m^2): 2.1 MV E max david: 83.1 cm/sec TR max david: 236.5 cm/sec MV A max david: 65.6 cm/sec TR max P.4 mmHg MV E/A: 1.3 PA V2 max: 100.2 cm/sec Med Peak E' David: 8.8 cm/sec PA V2 mean: 65.3 cm/sec E/E' med: 9.5 PA mean P.0 mmHg Lat Peak E' David: 8.4 cm/sec PA pr(Accel): 36.2 mmHg E/E' lat: 9.9 E/e' average: 9.7 MV dec time: 0.21 sec SV(LVOT): 104.6 ml Reading Physician:PM
[2022-04-18 15:00] VITALS: BP 141/59; PULSE 64; RESP 16; TEMP 38.2; O2SAT 100
--- NOTE | 2022-04-18 16:49 | PM.DS.1 ---
History of Present Illness History of Present Illness Date Patient Seen: 04/18/22 Time Patient Seen: 16:49 Chief complaint: vomiting/abd. pain Narrative: 76-year-old female with breast cancer being treated with hormonal therapy admitted via emergency department with left lower quadrant pain some diarrhea. Recently treated for UTI with resolution of symptoms. As part of her ER evaluation she was found to have a borderline elevated troponin and some subtle possible ST-T segment changes on her anterior leads on her ECG Patient reports some emesis and maybe some diarrhea times as well Lab work showed a low potassium at 2.9 CT scan of the abdomen and pelvis essentially unremarkable, no diverticulitis although significant diverticulosis and a left-sided periumbilical hernia containing loops small bowel. Urinalysis pending. Discharge Providers Provider Date of admission: 04/17/22 16:13 Discharge Date: 04/18/22 Primary care physician: Uli Pratt MD Discharge provider: Uli Pratt MD Summary Hospital Course Discharge Diagnosis: 1. Hypokalemia, resolved 2. Elevated troponin without evidence of actual infarction 3. Periumbilical/ventral hernia with possible partial small-bowel obstruction, resolved 4. Nausea vomiting, resolved 5. Cancer of left breast stage I 6. Cancer of right breast 7. Obstructive sleep apnea of the adult Hospital Course: patient was admitted via emergency department because of perceived minimal changes in ECG and troponin that was minimally abnormal at 0.3. She was started on heparin drip by the ER physician after consultation with Cardiology. Patient had no cardiac symptoms whatsoever and troponin steadily decline back to a normal level. No further ECG changes were identified. Echocardiography was performed which showed no significant abnormalities and essentially was unchanged from echo performed in 2019 Patient no further GI symptoms and her exam was really quite benign. In the and I feel like there is probably not any significant or notable cardiac issue that went on during this presentation hospitalization. I think her symptoms were mostly GI in origin and in this case likely secondary to perhaps intermittent bowel issues related to the periumbilical / ventral hernia that on CT imaging contain small loop of small bowel Given the patient was clinically asymptomatic both from a GI and cardiac standpoint as well as negative findings with echocardiography he ECG troponin etcetera I felt as though she was stable and ready for discharge. In the current environment we have multiple patient is awaiting placement in our emergency department and I think she is safe for discharge in any further workup can be accomplished as an outpatient Status at Discharge Cognitive/behavioral status at discharge: at baseline, oriented Functional status at discharge: independent ambulation Overall status at discharge: patient is back to baseline Time Spent with Patient Time spent: Less than 30 minutes Exam Vital Signs (past 8 hours): - 04/18/22 11:00 04/18/22 15:00 Temperature 99.0 F 100.8 F H Pulse Rate 62 64 Respiratory Rate 15 16 Blood Pressure 117/61 141/59 H Pulse Oximetry 98 100 Oxygen Flow Rate 0 Oxygen Delivery Method Room Air Oxygen Flow Rate 0 Objective Labs Result Diagrams: 04/17/22 12:35 04/18/22 03:42 Labs: Laboratory Results - last 24 hr 04/17/22 04/17/22 04/17/22 15:30 15:57 21:46 APTT 90 H* D D-Dimer < 200 Sodium Potassium Chloride Carbon Dioxide BUN Creatinine Estimated GFR BUN/Creatinine Ratio Glucose Calcium Troponin I Urine Color Yellow Urine Appearance Clear Urine pH 5.0 Ur Specific [place] <=1.005 Urine Protein Negative Urine Glucose (UA) Negative Urine Ketones Negative Urine Occult Blood Trace-lysed Urine Nitrate Negative Urine Bilirubin Negative Urine Urobilinogen 0.2 Ur Leukocyte Esterase Negative Urine RBC 0-1/hpf D Urine WBC 0-1/hpf Ur Squamous Epith Cells None seen Urine Bacteria None seen Ur Culture Indicated? Cult not indicated 04/17/22 04/18/22 04/18/22 21:46 03:42 03:42 APTT 62 H D D-Dimer Sodium 135 L Potassium 3.5 Chloride 99 Carbon Dioxide 29 BUN 9 Creatinine 0.60 Estimated GFR > 60 BUN/Creatinine Ratio 15.0 Glucose 121 H Calcium 8.1 L Troponin I 0.137 H* Urine Color Urine Appearance Urine pH Ur Specific [place] Urine Protein Urine Glucose (UA) Urine Ketones Urine Occult Blood Urine Nitrate Urine Bilirubin Urine Urobilinogen Ur Leukocyte Esterase Urine RBC Urine WBC Ur Squamous Epith Cells Urine Bacteria Ur Culture Indicated? 04/18/22 03:42 APTT D-Dimer Sodium Potassium Chloride Carbon Dioxide BUN Creatinine Estimated GFR BUN/Creatinine Ratio Glucose Calcium Troponin I 0.068 H Urine Color Urine Appearance Urine pH Ur Specific [place] Urine Protein Urine Glucose (UA) Urine Ketones Urine Occult Blood Urine Nitrate Urine Bilirubin Urine Urobilinogen Ur Leukocyte Esterase Urine RBC Urine WBC Ur Squamous Epith Cells Urine Bacteria Ur Culture Indicated? [facility] Medical History Breast cancer, left breast Breast cancer, right breast Cancer of left breast, stage 1, estrogen receptor positive Cataract of both eyes (01/20/16) Cataracts, bilateral (Unknown) CPAP (continuous positive airway pressure) dependence Diverticulosis Former smoker H/O adenomatous polyp of colon High risk medication use History of hyperlipidemia (01/20/16) Hx of breast cancer (1995) Hx of hyperlipidemia (Unknown) Left knee pain (06/23/16) Obstructive sleep apnea Seborrheic dermatitis of scalp Ventral hernia Surgical History History of ankle surgery History of section History of colonoscopy History of hysterectomy Hx of bilateral cataract extraction Hx of mastectomy (~2017) S/P breast reconstruction, right (~1996) Status post cholecystectomy Status post repair of ventral hernia (~01/2021) Family History Father No problems noted. Mother Cancer Gallstones Ovarian cancer Sister Hypertension Heart disease Social History marital status: household members: spouse occupational status: previously employed Smoking Status: Former smoker Tobacco: How many years used: 20 second hand exposure: No alcohol intake: never substance use type: does not use Discharge Plan Discharge Plan Patient Disposition: Home Discharge orders & Medications Prescriptions: New aspirin 81 mg Tablet,Delayed Release (Dr/Ec) 81 mg PO DAILY Qty: 90 3RF Continued hydrochlorothiazide 25 mg tablet 25 mg PO DAILY Qty: 90 0RF Rx Instructions: PT DUE FOR APPT WITH PCP PRIOR TO END OF RX/FUTURE FILLS. PLEASE CALL TO SCHEDULE APPT. THANKS 03/03/22. omeprazole 20 mg Tablet,Delayed Release (Dr/Ec) 20 mg PO DAILY calcium carbonate-vitamin D3 [Calcium 500 + D] 500 mg(1,250mg) -200 unit Tablet 1 tab PO DAILY anastrozole 1 mg Tablet 1 mg PO DAILY Qty: 90 3RF (DME) ResMed AirSense 10 Auto See Rx Instructions .ROUTE .MEDSUPPLY Rx Instructions: CPAP Min: 10 Max: 18 DME: PHM Follow up/Referrals: Uli Pratt MD [Primary Care Provider] - 1 Week Discharge Health Status Multidrug resistant organism: No MDRO Diet/Activity/Treatments Diet: Diet as Tolerated Discharge Data Primary Care Provider: Uli Pratt VTE Deep Vein Thrombosis/Pulmonary Embolism Present on Admission: No
--- NOTE | 2022-04-18 17:42 | PC.NURSE ---
did well today, denies chest pain /discomfort. tele: NSR. continues w/ IVF: D51/2 NS w/20K at 100/hour. continues w/ hep gtt at 17cc/hour. next ptt in AM. dc orders received: iv's d/cd by [employer] , and documented. awaiting spouse arrival to scrap picker patient and d/c home.
== END 2022-04-18 18:00 | disposition home or self-care (01) | DRG 395 ==
LOC: ED 16:12 → AC 16:14
PROVIDERS: Emergency Medicine; Admitting Provider Internal Medicine; Emergency Provider Student in an Organized Health Care Education/Training Program; PCP Internal Medicine; Referring Provider Student in an Organized Health Care Education/Training Program; Visit Provider Internal Medicine
DX: K42.0 Umbilical hernia with obstruction, without gangrene (principal); R77.8 Other specified abnormalities of plasma proteins; R94.31 Abnormal electrocardiogram [ECG] [EKG]; C50.911 Malignant neoplasm of unspecified site of right female breast; C50.912 Malignant neoplasm of unspecified site of left female breast; E87.6 Hypokalemia; G47.33 Obstructive sleep apnea (adult) (pediatric); Z87.891 Personal history of nicotine dependence; Z20.822 Contact with and (suspected) exposure to COVID-19
CPT/HCPCS: 36415; 71046; 74177; 80048; 80053; 81001; 82550; 83605; 83690; 83735; 84100; 84484; 85025; 85379; 85610; 85730; 87635; 93005; 93306; 96365; 96375; 99223; 99238; 99284; C9803; J1644; J2270; J2405; J3480

== ENCOUNTER → 2022-04-24 14:30 | Outpatient (CLI) | payer MEDICARE, SELFPAY ==
[2022-04-17 16:31] VITALS: BMI 30.9
[2022-04-24 16:05] LABS: BUN Creatinine Ratio 19.7 (6-22); Blood Urea Nitrogen 13 mg/dL (7-17); Calcium 8.8 mg/dL (8.4-10.2); Carbon Dioxide 30 mmol/L (22-32); Chloride 104 mmol/L (98-107); Estimated Glomerular Filt Rate > 60 mL/min (>60); Glucose 99 mg/dL (80-110); HEMOLYSIS < 15 (0-50); Sodium 139 mmol/L (137-145)
== END ==
PROVIDERS: PCP Internal Medicine; Referring Provider Internal Medicine; Visit Provider Internal Medicine
DX: Z86.39 Personal history of other endocrine, nutritional and metabolic disease (principal)
CPT/HCPCS: 36415; 80048

== ENCOUNTER → 2022-05-15 13:01 | Outpatient (CLI) | payer MEDICARE, SELFPAY ==
[2022-04-17 16:31] VITALS: BMI 30.9
[2022-05-15 18:37] LABS: COVID19 -Nasal RAPID Negative (Negative)
--- NOTE | 2022-05-16 14:22 | PM.TREADMILL ---
Cardiac Stress Test Report Referral & Results Date Patient Seen: 05/16/22 Requesting provider: Uli Pratt Indication: Abnormal troponin, recent hospitalization Rest ECG: Unremarkable, rare PVC Procedure Note: Today following both written and verbal informed consent the patient was exercised according to a standard Kang protocol patient went for a total of 5 minutes 53 seconds achieving a maximum heart rate of 126 maximum systolic blood pressure of 170. This is approximately 7.0 METS. Exercise was terminated at this point because of targets were met patient was unable to continue. Patient was also given Cardiolite through a previously started Hep-Lock IV by the diagnostic imaging staff approximately 1 minute prior to the cessation of exercise. There were nonspecific ST-T segment changes in the inferior and lateral leads consisting of some ST segment depression that was flat upsloping. This rapidly resolved in recovery Rare PVC Function aerobic impairment estimate at -20-25% on the active scale or better than average Impression: Treadmill demonstrating nonspecific ST-T segment changes with exercise. Excellent exercise capacity Please see perfusion imaging report help differentiate whether above changes are ischemic or not, given patient's exercise capacity I would interpret this as a low risk study at worst based on ECG criteria alone Please note: Actual ECG tracings can be found in the PACS system.
--- NOTE | 2022-05-16 18:51 | DI.NM.S_ITS ---
DATE OF SERVICE: 05/15/2022 PROCEDURE: Exercise perfusion study. INDICATION: History of abdominal pain, elevated troponin. RADIOPHARMACEUTICAL: 25.3 millicurie technetium-99m Myoview IV was injected at stress and 25.8 millicurie technetium-99m Myoview IV was injected at rest. CARDIAC STRESS: The patient walked on Kang protocol for 5 minutes and 53 seconds, achieved 88 percent of target heart rate. Baseline blood pressure 116/80 mmHg. Peak blood pressure 170/88 mmHg. The patient unable to continue on treadmill after that. Test was discontinued. Baseline rhythm was sinus with flattening of ST-segment in inferolateral leads. During stress, there were some nonspecific ST changes and some occasional PACs and PVCs without any significant ventricular arrhythmias or convincing ischemic changes. No anginal symptoms. MICHELLE -25 percent. The patient achieved 7 METs of workload. RAW DATA: There is increased subdiaphragmatic activity. Gut shadow encroaching the inferior border of the heart. GATED STUDY: Stress LV ejection fraction is 76 percent without any obvious wall motion abnormalities. Resting end-diastolic volume 80 mL. TID ratio 0.82 ,which is within normal limits. Lung/heart ratio 0.30, which is within normal limits. MYOCARDIAL PERFUSION SCAN: Stress supine, resting supine and stress prone images were compared to each other. Stress supine images revealed small size, mildly decreased perfusion of inferior wall, which got completely resolved during stress prone images, suggestive of tissue attenuation artifact. The stress prone images revealed normal myocardial perfusion. CONCLUSION: This is an normal exercise myocardial perfusion study with evidence of tissue attenuation artifact, which got in got resolved during stress prone images. Fair exercise tolerance. The patient achieved 7 metabolic equivalents of workload. Normal hemodynamic response. No significant arrhythmias. No anginal symptoms. Overall low-risk exercise perfusion study. Emily Condon - MACEY/chalo/cheng doc#: [id number]/job#: [id number] dd: 05/16/2022 16:58:00 dt: 05/16/2022 18:18:00 DICTATING MD/COPIES TO: Concepción Nguyen MD COPIES MNE: WALE;
== END ==
PROVIDERS: PCP Internal Medicine; Referring Provider Internal Medicine; Visit Provider Internal Medicine
DX: I21.4 Non-ST elevation (NSTEMI) myocardial infarction (principal); R07.9 Chest pain, unspecified; R10.9 Unspecified abdominal pain; R77.8 Other specified abnormalities of plasma proteins; Z20.822 Contact with and (suspected) exposure to COVID-19
CPT/HCPCS: 78452; 87635; 93016; 93017; 93018; A9502

== ENCOUNTER 2022-07-11 07:10 | Emergency (ER) | payer MEDICARE, SELFPAY ==
[2022-04-17 16:31] VITALS: BMI 30.9
[2022-07-11] VITALS (32 sets, daily range): BP systolic 131–163; BP diastolic 58–71; PULSE 68–84; RESP 16; TEMP 36.8; O2SAT 94–99; BMI 29.9
--- NOTE | 2022-07-11 07:30 | DI.RAD.S_ITS ---
PROCEDURE: XR ACUTE ABDOMEN SERIES INDICATIONS: abd pain TECHNIQUE: One view chest and two views of the abdomen were acquired. COMPARISON: None. FINDINGS: Surgical changes and devices: Cholecystectomy clips. Chest: Lungs are clear. Heart size is normal. No pleural effusions. No pneumoperitoneum. Abdomen: Mild scattered fluid levels are noted. Colonic stool is prominent in the left colon.. No suspicious calcifications. Visualized solid organ contours appear normal. Bones: No suspicious bony lesions. IMPRESSION: Fluid levels are present suggestive of developing ileus/partial small bowel obstruction. Dictated by: Marlen Scott M.D. on 07/11/2022 at 9:07 Approved by: Marlen Scott M.D. on 07/11/2022 at 9:08
--- NOTE | 2022-07-11 07:36 | ED_ITS ---
HPI - Nausea/Vomiting/Diarrhea General Chief complaint: Nausea/Vomiting/Diarrhea Stated complaint: cant hold food down, constipated, dehydrated Time Seen by Provider: 07/11/22 07:15 Source: patient Mode of arrival: Ambulatory History of Present Illness HPI Narrative: This patient arrives this morning with nausea and vomiting overnight. She had specialized hernia repair at the [facility] by Dr. Langley on the 4th of this month. She remained hospitalized postoperatively for 4 days. She is been home now for a number of days and doing reasonably well. Over the past 48 hours she is had increasing lower abdominal cramping and nausea. Through the night the Zofran that she had been taking had become less effective. She really is unable to tolerate oral fluids at this time. She denies fever, cough, bloody emesis or bloody stools. She denies melena. She reports scant brown stools, no diarrhea. She does endorse some abdominal cramping. No back pain, no chest pain, no shortness of breath. She has her regular postoperative visit scheduled tomorrow. Related Data Home Medications Medication Instructions Recorded Confirmed omeprazole 20 mg tablet,delayed 20 mg PO DAILY 02/09/21 05/02/22 release calcium carbonate 500 mg-vitamin 1 tab PO DAILY 02/15/21 05/02/22 D3 5 mcg (200 unit) tablet (Calcium 500 + D) ResMed AirSense 10 Auto 12/29/21 05/02/22 Previous Rx's Medication Instructions Recorded anastrozole 1 mg tablet 1 mg PO DAILY #90 tabs 03/13/22 aspirin 81 mg tablet,delayed 81 mg PO DAILY #90 tabs 04/18/22 release hydrochlorothiazide 25 mg tablet 25 mg PO DAILY #90 tabs 06/01/22 Allergies Allergy/AdvReac Type Severity Reaction Status Date / Time No Known Drug Allergies Allergy Verified 07/11/22 07:28 Review of Systems Review of Systems Narrative: Complete review of systems is negative other than as noted above Patient History Medical History (Updated 07/11/22 @ 17:42 by Guido Mitchell MD) Breast cancer, left breast Breast cancer, right breast Cancer of left breast, stage 1, estrogen receptor positive Cataract of both eyes (01/20/16) Cataracts, bilateral (Unknown) CPAP (continuous positive airway pressure) dependence Diverticulosis Former smoker H/O adenomatous polyp of colon High risk medication use History of hyperlipidemia (01/20/16) Hx of breast cancer (1995) Hx of hyperlipidemia (Unknown) Left knee pain (06/23/16) Obstructive sleep apnea Seborrheic dermatitis of scalp Ventral hernia Surgical History History of ankle surgery History of section History of colonoscopy History of hysterectomy Hx of bilateral cataract extraction Hx of mastectomy (~2017) S/P breast reconstruction, right (~1996) Status post cholecystectomy Status post repair of ventral hernia (~01/2021) Family History Father No problems noted. Mother Cancer Gallstones Ovarian cancer Sister Hypertension Heart disease Social History marital status: household members: spouse occupational status: previously employed Smoking Status: Former smoker Tobacco: How many years used: 20 second hand exposure: No alcohol intake: never substance use type: does not use Smoking Status: Former smoker alcohol intake frequency: holidays/special occasions only Substance Use Type: does not use Exam Narrative Exam Narrative: GENERAL: Alert, cooperative and in no distress. HEAD: Atraumatic. Normocephalic. EYES: Sclera are clear without icterus. ENT: No rhinorrhea. NECK: Supple. Full range of motion. CARDIOVASCULAR: Normal rate and rhythm without murmur gallop or rub. RESPIRATORY: Clear to auscultation. Breath sounds equal bilaterally. No wheezes, rales, or rhonchi. GASTROINTESTINAL: Abdomen soft, non-tender, nondistended, hyperactive bowel sounds. EXTREMITIES: No edema, full range of motion. No obvious trauma. BACK: Normal inspection, no CVA tenderness. NEURO: Nonfocal examination, normal speech, normal gait. SKIN: No rash or erythema of visible areas PSYCH: Normally oriented. Normal range of affect. Appropriate behavior Initial Vital Signs Initial Vital Signs: Vital Signs Temperature 98.2 F 07/11/22 07:15 Pulse Rate 73 07/11/22 07:15 Respiratory Rate 16 07/11/22 07:15 Blood Pressure 131/63 07/11/22 07:15 Pulse Oximetry 99 07/11/22 07:15 Oxygen Delivery Method 07/11/22 07:15 Course Course Course Narrative: Patient says her pain is slightly better but still feeling very nauseated. They were in contact with Dr. Langley's office who suggested that if hospitalization is indicated that she should be transferred down to their facility. I agree with this assessment. Will await CT report 1st before I communicate with Dr. Langley. Will add on Reglan to see if this helps the nausea more. Orders Ordered: ED Orders 07/11/22 08:58 CBC Auto Diff [Complete Blood Count AUTO DIFF] Stat CMP [Comprehensive Metabolic Panel] Stat Lactate (Lactic Acid) Stat Magnesium Stat Troponin I Stat 07/11/22 11:17 CT abdomen pelvis w con Stat Ondansetron HCl (Ondansetron 4 Mg/2 Ml Inj) 4 mg IV Q2HR PRN PRN Reason: Nausea And Vomiting Last Admin: 07/11/22 16:09 Dose: 4 mg Documented By: Admin: 07/11/22 08:12 Dose: 4 mg Documented By: KENDELL Discontinued Medications Sodium Chloride (Normal Saline 0.9%) 1,000 mls @ 1,000 mls/hr IV BOLUS ONE Stop: 07/11/22 08:29 Last Infusion: 07/11/22 11:08 Dose: 0 mls/hr Documented By: Admin: 07/11/22 08:12 Dose: 1,000 mls/hr Documented By: KENDELL Cefazolin Sodium/Dextrose (Ancef) 100 mls @ 200 mls/hr IV NOW ONE Stop: 07/11/22 13:27 Last Infusion: 07/11/22 14:22 Dose: 0 mls/hr Documented By: Admin: 07/11/22 13:23 Dose: 200 mls/hr Documented By: GAYLE Vancomycin HCl/Dextrose (Vancomycin) 1,500 mg in 300 mls @ 200 mls/hr IV NOW ONE Stop: 07/11/22 14:32 Last Infusion: 07/11/22 16:10 Dose: 0 mls/hr Documented By: Admin: 07/11/22 14:21 Dose: 200 mls/hr Documented By: GAYLE Ketorolac Tromethamine (Ketorolac 30 Mg/Ml Vial) 15 mg IV NOW ONE Stop: 07/11/22 08:03 Last Admin: 07/11/22 08:13 Dose: 15 mg Documented By: KENDELL Metoclopramide HCl (Metoclopramide 10 Mg/2 Ml Inj) 10 mg IV NOW ONE Stop: 07/11/22 10:52 Last Admin: 07/11/22 11:32 Dose: 10 mg Documented By: CSD Consultations Consultation #1: After multiple discussions with Dr. Langley's assistance the determination was that her best care would probably be obtained at the [facility]. We have spent much of the day trying to find a bed space available. She will be transferred to their hospital and their service. Vital Signs Vital signs: Vital Signs - 8 hr 07/11/22 10:00 07/11/22 10:00 07/11/22 10:30 Pulse Rate 71 73 Blood Pressure 163/71 H Pulse Oximetry 95 97 Oxygen Delivery Method 07/11/22 10:31 07/11/22 10:31 07/11/22 11:00 Pulse Rate 71 Blood Pressure 150/65 H 141/63 H Pulse Oximetry 97 Oxygen Delivery Method 07/11/22 11:00 07/11/22 11:16 07/11/22 11:16 Pulse Rate 71 73 Blood Pressure 136/62 Pulse Oximetry 98 97 Oxygen Delivery Method 07/11/22 11:30 07/11/22 11:30 07/11/22 11:58 Pulse Rate 71 76 Blood Pressure 144/65 H Pulse Oximetry 96 99 Oxygen Delivery Method 07/11/22 11:58 07/11/22 12:00 07/11/22 12:00 Pulse Rate 76 Blood Pressure 147/67 H 146/63 H Pulse Oximetry 99 Oxygen Delivery Method 07/11/22 12:30 07/11/22 12:30 Pulse Rate 76 Blood Pressure 152/68 H Pulse Oximetry 97 Oxygen Delivery Method Room Air MDM - Nausea/Vomiting/Diarrhea Lab Data Result diagrams: 07/11/22 08:58 07/11/22 08:58 Labs: Lab Results 07/11/22 07/11/22 07/11/22 Range/Units 08:25 08:58 08:58 WBC 13.5 H (4.5-11.0) X10^3/uL RBC 3.96 L (4.0-5.2) X10^6/uL Hgb 11.6 L (12.0-16.0) g/dL Hct 34.6 L (36-46) % MCV 87.4 (80-100) fL MCH 29.4 (26-34) PG MCHC 33.7 (30-36) % RDW 12.6 (11.6-14.8) % Plt Count 378 (150-400) X10^3/uL Neut % (Auto) 83.8 H (50-75) % Lymph % (Auto) 9.6 L (25-40) % Sierra % (Auto) 4.7 (3-14) % Eos % (Auto) 0.9 L (2-4) % Baso % (Auto) 1.0 (0-2) % Neut # (Auto) 97014 H (1583-4599) /uL Lymph # (Auto) 1300 (5934-4084) /uL Sierra # (Auto) 600 (0-900) /uL Eos # (Auto) 100 (0-450) /uL Baso # (Auto) 100 (0-100) /uL Sodium 135 L (137-145) mmol/L Potassium 3.2 L (3.4-5.1) mmol/L Chloride 99 (98-107) mmol/L Carbon Dioxide 32 (22-32) mmol/L BUN 11 (7-17) mg/dL Creatinine 0.67 (0.52-1.04) mg/dL Estimated GFR > 60 (>60) mL/min BUN/Creatinine Ratio 16.4 (6-22) Glucose 114 H (80-110) mg/dL Lactate (0.7-2.1) mmol/L Calcium 8.3 L (8.4-10.2) mg/dL Magnesium (1.6-2.3) mg/dL Total Bilirubin 0.7 (0.2-1.3) mg/dL AST 20 (14-36) IU/L ALT 16 (<35) IU/L Alkaline Phosphatase 79 (38-126) U/L Troponin I (0.01-0.034) ng/mL Total Protein 6.2 L (6.3-8.2) g/dL Albumin 3.5 (3.5-5.0) g/dL Globulin 2.7 (1.7-4.1) g/dL Albumin/Globulin Ratio 1.3 (1.0-2.8) SARS-CoV-2 (PCR) Negative (Negative) 07/11/22 07/11/22 Range/Units 08:58 08:58 WBC (4.5-11.0) X10^3/uL RBC (4.0-5.2) X10^6/uL Hgb (12.0-16.0) g/dL Hct (36-46) % MCV (80-100) fL MCH (26-34) PG MCHC (30-36) % RDW (11.6-14.8) % Plt Count (150-400) X10^3/uL Neut % (Auto) (50-75) % Lymph % (Auto) (25-40) % Sierra % (Auto) (3-14) % Eos % (Auto) (2-4) % Baso % (Auto) (0-2) % Neut # (Auto) (4977-4672) /uL Lymph # (Auto) (6480-8737) /uL Sierra # (Auto) (0-900) /uL Eos # (Auto) (0-450) /uL Baso # (Auto) (0-100) /uL Sodium (137-145) mmol/L Potassium (3.4-5.1) mmol/L Chloride (98-107) mmol/L Carbon Dioxide (22-32) mmol/L BUN (7-17) mg/dL Creatinine (0.52-1.04) mg/dL Estimated GFR (>60) mL/min BUN/Creatinine Ratio (6-22) Glucose (80-110) mg/dL Lactate 0.8 (0.7-2.1) mmol/L Calcium (8.4-10.2) mg/dL Magnesium 2.3 (1.6-2.3) mg/dL Total Bilirubin (0.2-1.3) mg/dL AST (14-36) IU/L ALT (<35) IU/L Alkaline Phosphatase (38-126) U/L Troponin I < 0.012 (0.01-0.034) ng/mL Total Protein (6.3-8.2) g/dL Albumin (3.5-5.0) g/dL Globulin (1.7-4.1) g/dL Albumin/Globulin Ratio (1.0-2.8) SARS-CoV-2 (PCR) (Negative) Imaging Data Abdominal x-ray: Radiologist's Impression: IMPRESSION:? Fluid levels are present suggestive of developing ileus/partial small bowel obstruction. ? ? Dictated by: Marlen Scott M.D. on 07/11/2022 at 9:07 ? ? Approved by: Marlen Scott M.D. on 07/11/2022 at 9:08 ? ECG Data Interpretation: ECG obtained at 9:09 a.m. shows a sinus rhythm at a rate of 70 beats per minute nonspecific STT wave changes Discharge Plan Departure Patient Disposition: [facility] Clinical Impression: Postoperative seroma Prescriptions: No Action hydrochlorothiazide 25 mg tablet 25 mg PO DAILY Qty: 90 0RF omeprazole 20 mg Tablet,Delayed Release (Dr/Ec) 20 mg PO DAILY calcium carbonate-vitamin D3 [Calcium 500 + D] 500 mg(1,250mg) -200 unit Tablet 1 tab PO DAILY aspirin 81 mg Tablet,Delayed Release (Dr/Ec) 81 mg PO DAILY Qty: 90 3RF anastrozole 1 mg Tablet 1 mg PO DAILY Qty: 90 3RF (DME) ResMed AirSense 10 Auto See Rx Instructions .Route .MEDSUPPLY Rx Instructions: CPAP Min: 10 Max: 18 DME: PHM Referrals: Uli Pratt MD [Primary Care Provider] -
[2022-07-11] MEDS: ONDANSETRON 4 MG/2 ML INJ IV ×2 (08:12→16:09)
[2022-07-11] MEDS: SODIUM CHLORIDE 0.9% 1,000 ML 1000 ML IV (08:12)
[2022-07-11] MEDS: KETOROLAC 30 MG/ML VIAL 15 MG IV ×2 (08:13→19:11)
[2022-07-11 08:54] LABS: COVID19 -Nasal RAPID Negative (Negative)
[2022-07-11 09:06] LABS: Add Manual Diff / Slide Review NO; Basophils Absolute Auto 100 /uL (0-100); Eosinophils Absolute Auto 100 /uL (0-450); Eosinophils Percent Auto 0.9 % (2-4); Hematocrit 34.6 % (36-46); Hemoglobin 11.6 g/dL (12.0-16.0); Lymphocytes Absolute Auto 1300 /uL (1100-4500); Lymphocytes Percent Auto 9.6 % (25-40); Mean Corpuscular HGB Conc 33.7 % (30-36); Mean Corpuscular Hemoglobin 29.4 PG (26-34); Mean Corpuscular Volume 87.4 fL (80-100); Monocytes Absolute Auto 600 /uL (0-900); Monocytes Percent Auto 4.7 % (3-14); Neutrophils Absolute Auto 11400 /uL (1500-7000); Neutrophils Percent Auto 83.8 % (50-75); Platelet Count 378 X10^3/uL (150-400); Red Blood Cell Count 3.96 X10^6/uL (4.0-5.2); Red Cell Distribution Width 12.6 % (11.6-14.8); White Blood Cell Count 13.5 X10^3/uL (4.5-11.0)
[2022-07-11 09:22] LABS: Lactate (Lactic Acid) 0.8 mmol/L (0.7-2.1); Magnesium 2.3 mg/dL (1.6-2.3)
[2022-07-11 09:23] LABS: Alanine Aminotransferase 16 IU/L (<35); Albumin 3.5 g/dL (3.5-5.0); Albumin Globulin Ratio 1.3 (1.0-2.8); Alkaline Phosphatase 79 U/L (38-126); Aspartate Aminotransferase 20 IU/L (14-36); BUN Creatinine Ratio 16.4 (6-22); Bilirubin Total 0.7 mg/dL (0.2-1.3); Blood Urea Nitrogen 11 mg/dL (7-17); Calcium 8.3 mg/dL (8.4-10.2); Carbon Dioxide 32 mmol/L (22-32); Chloride 99 mmol/L (98-107); Estimated Glomerular Filt Rate > 60 mL/min (>60); Globulin 2.7 g/dL (1.7-4.1); Glucose 114 mg/dL (80-110); HEMOLYSIS < 15 (0-50); Potassium 3.2 mmol/L (3.4-5.1); Sodium 135 mmol/L (137-145); Total Protein 6.2 g/dL (6.3-8.2)
[2022-07-11 09:35] LABS: Troponin I < 0.012 ng/mL (0.01-0.034)
--- NOTE | 2022-07-11 11:17 | DI.CT.S_ITS ---
PROCEDURE: CT ABDOMEN PELVIS W CON INDICATIONS: abd pain TECHNIQUE: After the administration of oral and IV contrast, axial sections were acquired from the lung bases to the pubic symphysis. Coronal and sagittal reformats were performed. For radiation dose reduction, the following was used: automated exposure control, adjustment of mA and/or kV according to patient size. COMPARISON: [facility], CT, CT ABDOMEN PELVIS W CON, 04/17/2022, 13:44. FINDINGS: Image quality: Excellent. Lung bases: Unremarkable. Heart: No significant findings. ABDOMEN: Liver: Liver is enlarged measuring 18.0 cm. Gallbladder: Removed. Biliary ducts: There is mild prominence the common bile duct measuring 1.5 cm with very minimal intrahepatic biliary prominence. This is unchanged and suspected to be related to post cholecystectomy sequela. Pancreas: Unremarkable. Spleen: Unremarkable. Adrenal Glands: Unremarkable. Kidneys and Ureters: Unremarkable. Stomach and Bowel: Stomach, small bowel loops, and colon are unremarkable. Large hiatal hernia. Peritoneum: Mild dependent pelvic fluid is present. Ventral Wall: Fluid attenuation is noted in a collection in the midline of the anterior abdominal wall subcutaneous fat measuring 3.7 by 7.8 cm. There is very minimal appearance of surrounding inflammatory change. There is no visualized bowel herniation.. Abdominal Nodes: No retroperitoneal or mesenteric adenopathy by size criteria. Vessels: Aorta and inferior vena cava are normal in size. PELVIS: Pelvic Organs: Unremarkable. Bladder: Unremarkable. Pelvic Nodes: No enlarged lymph nodes. Miscellaneous: No inguinal hernias are seen. Bones: Unremarkable. IMPRESSION: Anterior subcutaneous fat fluid collection suggestive of postoperative seroma. However, given appearance of slight surrounding inflammatory change, developing phlegmon/abscess cannot be definitively excluded. Mild dependent pelvic fluid. Dictated by: Marlen Scott M.D. on 07/11/2022 at 11:20 Approved by: Marlen Scott M.D. on 07/11/2022 at 11:27
[2022-07-11] MEDS: METOCLOPRAMIDE 10 MG/2 ML INJ IV (11:32)
[2022-07-11] MEDS: CEFAZOLIN 2 GM/100 ML PREMIX 100 ML IV (13:23)
[2022-07-11] MEDS: VANCOMYCIN 1,500 MG/300 ML PIGGYBACK 200 MG IV (14:21)
--- NOTE | 2022-07-11 19:02 | PC.NURSE ---
attempted to call report to , nurse declined report at this time stating they are in the middle of huddle and she is busy. states she will attempt to call back after 1930 when she is not busy
== END 2022-07-11 19:12 | disposition short-term general hospital (02) ==
PROVIDERS: Emergency Provider Family Medicine Addiction Medicine; PCP Internal Medicine
DX: L76.34 Postprocedural seroma of skin and subcutaneous tissue following other procedure (principal); Z20.822 Contact with and (suspected) exposure to COVID-19; R03.0 Elevated blood-pressure reading, without diagnosis of hypertension
CPT/HCPCS: 74022; 74177; 80053; 83605; 83735; 84484; 85025; 87635; 93005; 93010; 96361; 96365; 96366; 96367; 96375; 96376; 99284; C9803; J0690; J1885; J2405; J2765

== ENCOUNTER → 2023-03-23 15:10 | Outpatient (CLI) | payer MEDICARE, SELFPAY ==
[2022-04-17 16:31] VITALS: BMI 30.9
--- NOTE | 2023-03-23 15:12 | DI.US.S_ITS ---
PROCEDURE: US PERIP VENOUS LOW EXTREM LT INDICATIONS: LEFT LEG EDEMA TECHNIQUE: Real-time imaging, as well as color and pulse Doppler interrogation, were performed of the lower extremity deep veins from the inguinal ligament to the popliteal fossa. COMPARISON: [facility], [facility] VENOUS LOW EXTREM LT, 02/21/2019, 11:56. FINDINGS: The common femoral, femoral and popliteal veins are normally compressible, and free of intraluminal thrombus. Color and pulse Doppler demonstrate normal phasic intraluminal flow. There is normal augmentation response to distal compression maneuver. IMPRESSION: No deep vein thrombosis of the left lower extremity. Dictated by: Petty Cronin M.D. on 03/23/2023 at 17:13 Approved by: Petty Cronin M.D. on 03/23/2023 at 17:13
== END ==
PROVIDERS: PCP Internal Medicine; Referring Provider Internal Medicine; Visit Provider Internal Medicine
DX: I82.402 Acute embolism and thrombosis of unspecified deep veins of left lower extremity (principal); R60.0 Localized edema
CPT/HCPCS: 93971

== ENCOUNTER 2023-04-07 16:39 | Emergency (ER) | payer MEDICARE, SELFPAY ==
[2022-04-17 16:31] VITALS: BMI 30.9
[2023-04-07] VITALS (13 sets, daily range): BP systolic 121–147; BP diastolic 59–73; PULSE 67–77; RESP 13–24; TEMP 37.2; O2SAT 92–96; BMI 29.1
[2023-04-07] MEDS: ONDANSETRON 4 MG/2 ML INJ IV (17:08)
[2023-04-07 17:30] LABS: BUN Creatinine Ratio 18.5 (6-22); Blood Urea Nitrogen 10 mg/dL (7-17); Calcium 8.3 mg/dL (8.4-10.2); Carbon Dioxide 30 mmol/L (22-32); Chloride 95 mmol/L (98-107); Estimated Glomerular Filt Rate > 60 mL/min (>60); Glucose 126 mg/dL (80-110); HEMOLYSIS 27 (0-50); Potassium 3.5 mmol/L (3.4-5.1); Sodium 132 mmol/L (137-145)
[2023-04-07 17:40] LABS: Add Manual Diff / Slide Review NO; Basophils Absolute Auto 0 /uL (0-100); Basophils Percent Auto 0.3 % (0-2); Eosinophils Absolute Auto 0 /uL (0-450); Hematocrit 35.8 % (36-46); Hemoglobin 12.3 g/dL (12.0-16.0); Lymphocytes Absolute Auto 400 /uL (1100-4500); Lymphocytes Percent Auto 7.9 % (25-40); Mean Corpuscular HGB Conc 34.5 % (30-36); Mean Corpuscular Hemoglobin 29.3 PG (26-34); Mean Corpuscular Volume 85.1 fL (80-100); Monocytes Absolute Auto 500 /uL (0-900); Monocytes Percent Auto 9.7 % (3-14); Neutrophils Absolute Auto 4300 /uL (1500-7000); Neutrophils Percent Auto 82.1 % (50-75); Platelet Count 178 X10^3/uL (150-400); White Blood Cell Count 5.2 X10^3/uL (4.5-11.0)
[2023-04-07] MEDS: SODIUM CHLORIDE 0.9% 1,000 ML 1000 ML IV (17:58)
[2023-04-07 18:00] LABS: Adenovirus Not Detected (Not Detect); B. parapertussis Not Detected (Not Detecte); Bordetella pertussis Not Detected (Not Detecte); Chlamydophila pneumoniae Not Detected (Not Detect); Coronavirus 229E Not Detected (Not Detect); Coronavirus HKU1 Not Detected (Not Detect); Coronavirus NL 63 Not Detected (Not Detect); Coronavirus OC43 Not Detected (Not Detect); Human Metapneumovirus Not Detected (Not Detect); Human Rhinovirus/Enterovirus Not Detected (Not Detect); Influenza A Not Detected (Not Detect); Influenza B Not Detected (Not Detect); Mycoplasma pneumoniae Not Detected (Not Detect); Parainfluenza Virus 1 Not Detected (Not Detect); Parainfluenza Virus 2 Not Detected (Not Detect); Parainfluenza Virus 3 Not Detected (Not Detect); Parainfluenza Virus 4 Not Detected (Not Detect); Respiratory Syncytial Virus Not Detected (Not Detect)
[2023-04-07 18:01] LABS: SARS- CoV-2 Detected (Not Detecte)
--- NOTE | 2023-04-07 18:03 | DI.RAD.S_ITS ---
PROCEDURE: XR CHEST 1V INDICATIONS: Flu like symptoms TECHNIQUE: One view of the chest was acquired. COMPARISON: [facility], CR, XR CHEST 2V, 04/17/2022, 14:52. FINDINGS: Surgical changes and devices: None. Lungs and pleura: No pneumothorax. Small left pleural effusion. Patchy left basilar consolidation. Right lung is clear. Mediastinum: Mediastinal contours appear normal. Heart size is normal. Bones and chest wall: No suspicious bony lesions. Overlying soft tissues appear unremarkable. IMPRESSION: Right lower lobe airspace disease/pneumonia with small pleural effusion. Recommend follow up chest radiograph 4-6 weeks after treatment to document resolution of findings and/or return to baseline examination. Dictated by: Cory Ortiz M.D. on 04/07/2023 at 18:27 Approved by: Cory Ortiz M.D. on 04/07/2023 at 18:28
[2023-04-07] MEDS: KETOROLAC 30 MG/ML VIAL 15 MG IV (18:12)
--- NOTE | 2023-04-07 18:24 | ED_ITS ---
HPI - Nausea/Vomiting/Diarrhea General Chief complaint: Nausea/Vomiting/Diarrhea Stated complaint: Vomiting, Fever Time Seen by Provider: 04/07/23 18:11 Source: patient Mode of arrival: Family Vehicle History of Present Illness HPI Narrative: 77-year-old woman with a history of breast cancer in remission recently returned from a cruise, drove back from [place] this morning yesterday noted that she was increasingly weak, decreased appetite low-grade fever seem to improve slightly with Tylenol. Today she had some vomiting increasing weakness general malaise and comes in for further evaluation. She denies chest pain or shortness of b reath. States that her main complaints are her headache the nausea the vomiting and the loss of appetite. She has some chronic left lower extremity swelling that is unchanged. Related Data Home Medications Medication Instructions Recorded Confirmed omeprazole 20 mg tablet,delayed 20 mg PO DAILY 02/09/21 03/23/23 release calcium carbonate 500 mg-vitamin 1 tab PO DAILY 02/15/21 03/23/23 D3 5 mcg (200 unit) tablet (Calcium 500 + D) [facility] AirSense 10 Auto 12/29/21 03/23/23 Lactobacil.acidophilus-Bifido.animalis 1 cap PO DAILY 03/12/23 03/23/23 5 billion cell sprinkle capsule (Probiotic) vitamin B complex 1 cap DAILY 03/12/23 03/23/23 Previous Rx's Medication Instructions Recorded aspirin 81 mg tablet,delayed 81 mg PO DAILY #90 tabs 04/18/22 release hydrochlorothiazide 25 mg tablet 25 mg PO DAILY #90 tabs 08/28/22 ondansetron 4 mg disintegrating 4 mg PO Q8H PRN nausea and 04/07/23 tablet vomiting #14 tabs Allergies Allergy/AdvReac Type Severity Reaction Status Date / Time No Known Drug Allergies Allergy Verified 04/07/23 16:56 Review of Systems Review of Systems Narrative: Pertinent positive and negative findings as per HPI Patient History Medical History Breast cancer, left breast Breast cancer, right breast Cancer of left breast, stage 1, estrogen receptor positive Cataract of both eyes (01/20/16) Cataracts, bilateral (Unknown) CPAP (continuous positive airway pressure) dependence Diverticulosis Essential hypertension Former smoker H/O adenomatous polyp of colon History of hyperlipidemia (01/20/16) Hx of breast cancer (1995) Hx of hyperlipidemia (Unknown) Left knee pain (06/23/16) Obstructive sleep apnea Postoperative seroma Seborrheic dermatitis of scalp Ventral hernia Surgical History History of ankle surgery History of section History of colonoscopy History of hysterectomy Hx of bilateral cataract extraction Hx of mastectomy (~2017) S/P breast reconstruction, right (~1996) Status post cholecystectomy Status post repair of ventral hernia (~01/2021) Family History Father No problems noted. Mother Cancer Gallstones Ovarian cancer Sister Hypertension Heart disease Social History marital status: household members: spouse occupational status: previously employed Smoking Status: Former smoker Tobacco: How many years used: 20 second hand exposure: No alcohol intake: never substance use type: does not use Smoking Status: Former smoker tobacco type: cigarettes alcohol intake frequency: holidays/special occasions only Substance Use Type: does not use Exam Initial Vital Signs Initial Vital Signs: Vital Signs Temperature 99.0 F 04/07/23 16:48 Pulse Rate 77 04/07/23 16:48 Respiratory Rate 19 04/07/23 16:48 Blood Pressure 138/62 04/07/23 16:48 Pulse Oximetry 95 04/07/23 16:48 Oxygen Delivery Method Room Air 04/07/23 16:48 General: Appears fatigued but in no acute distress. Able to give a complete and coherent history. Well-nourished well-developed HEENT: Moist mucous membranes, normal sclera with reactive pupils, Neck: No JVD, supple Respiratory: Lungs are clear to auscultation, no wheezing no rales no rhonchi. Full and symmetrical air movement Cardiac: Regular rate and rhythm no murmurs no bruits Abdomen: Soft, nontender, good bowel tones, no flank pain Skin: Pale, Warm and dry, no rashes Neurologic: Globally weak but Grossly neurologically intact with no obvious asymmetries or abnormalities Extremities: No trauma, well perfused, 1+ lower extremity edema left side Psych: Cooperative, appropriate insight and affect Course Orders Ordered: ED Orders 04/07/23 16:57 Respiratory Panel (Film Array) Stat 04/07/23 17:10 CBC Auto Diff [Complete Blood Count AUTO DIFF] Stat CHEM7 [Basic Metabolic Panel] Stat 04/07/23 17:25 Blood Culture Stat 04/07/23 18:03 XR chest 1V Stat Sodium Chloride (Normal Saline 0.9%) 1,000 mls @ 1,000 mls/hr IV BOLUS ONE Stop: 04/07/23 18:45 Last Admin: 04/07/23 17:58 Dose: 1,000 mls/hr Documented By: HERMELINDO Ondansetron HCl (Ondansetron 4 Mg Odt) 4 mg SL NOW PRN PRN Reason: Nausea And Vomiting Ondansetron HCl (Ondansetron 4 Mg/2 Ml Inj) 4 mg IV NOW PRN PRN Reason: Nausea And Vomiting Last Admin: 04/07/23 17:08 Dose: 4 mg Documented By: RLS Discontinued Medications Ketorolac Tromethamine (Ketorolac 30 Mg/Ml Vial) 15 mg IV NOW ONE Stop: 04/07/23 18:03 Last Admin: 04/07/23 18:12 Dose: 15 mg Documented By: ST Vital Signs Vital signs: Vital Signs - 8 hr 04/07/23 16:48 04/07/23 17:14 04/07/23 17:15 Temperature 99.0 F Pulse Rate 77 72 Respiratory Rate 19 Blood Pressure 138/62 147/73 H Pulse Oximetry 95 96 Oxygen Delivery Method Room Air 04/07/23 17:18 04/07/23 17:18 04/07/23 17:30 Temperature Pulse Rate 69 Respiratory Rate 24 Blood Pressure 136/64 131/63 Pulse Oximetry 94 Oxygen Delivery Method 04/07/23 17:30 04/07/23 17:45 04/07/23 18:00 Temperature Pulse Rate 67 75 Respiratory Rate 15 19 Blood Pressure 123/59 L Pulse Oximetry 94 96 Oxygen Delivery Method 04/07/23 18:00 Temperature Pulse Rate 71 Respiratory Rate 23 Blood Pressure Pulse Oximetry 94 Oxygen Delivery Method Room Air MDM - Nausea/Vomiting/Diarrhea Lab Data 04/07/23 17:10 04/07/23 17:10 Labs: Lab Results 04/07/23 04/07/23 04/07/23 Range/Units 16:57 17:10 17:10 WBC 5.2 (4.5-11.0) X10^3/uL RBC 4.20 (4.0-5.2) X10^6/uL Hgb 12.3 (12.0-16.0) g/dL Hct 35.8 L (36-46) % MCV 85.1 (80-100) fL MCH 29.3 (26-34) PG MCHC 34.5 (30-36) % RDW 13.0 (11.6-14.8) % Plt Count 178 (150-400) X10^3/uL Neut % (Auto) 82.1 H (50-75) % Lymph % (Auto) 7.9 L (25-40) % Starke % (Auto) 9.7 (3-14) % Eos % (Auto) 0.0 L (2-4) % Baso % (Auto) 0.3 (0-2) % Neut # (Auto) 4300 (9171-3439) /uL Lymph # (Auto) 400 L (2774-7869) /uL Starke # (Auto) 500 (0-900) /uL Eos # (Auto) 0 (0-450) /uL Baso # (Auto) 0 (0-100) /uL Sodium 132 L (137-145) mmol/L Potassium 3.5 (3.4-5.1) mmol/L Chloride 95 L (98-107) mmol/L Carbon Dioxide 30 (22-32) mmol/L BUN 10 (7-17) mg/dL Creatinine 0.54 (0.52-1.04) mg/dL Estimated GFR > 60 (>60) mL/min BUN/Creatinine Ratio 18.5 (6-22) Glucose 126 H (80-110) mg/dL Calcium 8.3 L (8.4-10.2) mg/dL Chlamy pneumoniae PCR Not detected (Not Detect) Adenovirus (PCR) Not detected (Not Detect) B. pertussis DNA (PCR) Not detected (Not Detecte) B.parapertussis DNA PCR Not detected (Not Detecte) Coronavirus OC43 (PCR) Not detected (Not Detect) Coronavirus HKU1 (PCR) Not detected (Not Detect) Coronavirus 229E (PCR) Not detected (Not Detect) SARS-CoV-2 (PCR) Detected H (Not Detecte) Coronavirus NL63 (PCR) Not detected (Not Detect) Human Metapneumovir PCR Not detected (Not Detect) Influenza Type A (PCR) Not detected (Not Detect) Influenza Type B (PCR) Not detected (Not Detect) M. pneumoniae (PCR) Not detected (Not Detect) Parainfluenza 1 (PCR) Not detected (Not Detect) Parainfluenza 2 (PCR) Not detected (Not Detect) Parainfluenza 3 (PCR) Not detected (Not Detect) Parainfluenza 4 (PCR) Not detected (Not Detect) RSV (PCR) Not detected (Not Detect) Entero/Rhino (PCR) Not detected (Not Detect) MDM Narrative Medical decision making narrative: CC: Weakness. Acute problem uncertain prognosis Complicating co-morbidities: Returned from [place] this morning, history of breast cancer in remission Data collected from: patient, Medical records reviewed: Primary care note from March 23 Differential considered: Viral syndrome, congestive heart failure, urinary tract infection, bowel obstruction Exam documented above, unremarkable exam with oxygen saturations in the 92-94% on room air Lab Test results independently reviewed as above. Pertinent findings: Respiratory panel returned positive for COVID CBC is reassuring Chemistries are reassuring with mildly low sodium at 132 Imaging studies independently reviewed: No obvious infiltrates, no significant cardiomegaly Treatments: Zofran and parenteral Toradol Discussion: 77-year-old woman who is fully vaccinated and boosted against COVID returned from [employer] this morning and is COVID positive with moderate symptoms. Oxygen saturations are 92-94% on room air. At this point there is no indication for hospitalization and patient is not interested in hospitalization. Her is available unable to help at home. Have given her a prescription for Zofran to use for her nausea, discuss use of ibuprofen and Tylenol for pain control. I explained that I did not have anything beyond Tylenol and ibuprofen for the headache and clearly reviewed reasons that she would need to return to the emergency department questions are answered and she is safe for discharge home Discharge Plan Departure Patient Disposition: Home Clinical Impression: COVID Instructions: COVID-19 Activity Restrictions/Additional Instructions: Thank you for coming in today Your respiratory panel does show that you have COVID. Fortunately your oxygen levels are still entirely appropriate and you do not need to be hospitalized. Over the next 7-10 days please expect continued fatigue, headache, nausea, fevers, body aches. You may develop a slight cough. Using 400 mg of ibuprofen (2 nvve-byc-tveachk pills) and 1 Tylenol every 6 hours can be very helpful in controlling pain. I have given you a prescription for Zofran/ondansetron to use for nausea. [facility] If you find that you are so weak that you are unable to get out of bed, your having increasing difficulties breathing or develop worsening symptoms please feel free to return to the ER. I hope you heal quickly. Prescriptions: New ondansetron 4 mg tablet,disintegrating 4 mg PO Q8H PRN (Reason: nausea and vomiting) Qty: 14 0RF No Action hydrochlorothiazide 25 mg tablet 25 mg PO DAILY Qty: 90 3RF omeprazole 20 mg Tablet,Delayed Release (Dr/Ec) 20 mg PO DAILY calcium carbonate-vitamin D3 [Calcium 500 + D] 500 mg(1,250mg) -200 unit Tablet 1 tab PO DAILY aspirin 81 mg Tablet,Delayed Release (Dr/Ec) 81 mg PO DAILY Qty: 90 3RF vitamin B complex [B Complex] Capsule 1 cap DAILY Probiotic 5 billion cell Capsule, Sprinkle 1 cap PO DAILY (DME) [facility] AirSense 10 Auto See Rx Instructions .Route .MEDSUPPLY Rx Instructions: CPAP Min: 10 Max: 18 DME: PHM Referrals: Uli Pratt MD [Primary Care Provider] - Stand Alone Forms: Patient Portal/API
[2023-04-07] MEDS: ONDANSETRON 4 MG ODT PREPACK 1 BOTTLE MISC (19:48)
[2023-04-09 12:47] LABS: Acinetobacter calcoa-baumannii Not Detected (Not Detect); Bacteroides fragilis Not Detected (Not Detect); Candida albicans Not Detected (Not Detect); Candida auris Not Detected (Not Detect); Candida glabrata Not Detected (Not Detect); Candida krusei Not Detected (Not Detect); Candida parapsilosis Not Detected (Not Detect); Candida tropicalis Not Detected (Not Detect); Cryptococcus neoformans/gatti Not Detected (Not Detect); Enterobacter cloacae complex Not Detected (Not Detect); Enterobacterales Not Detected (Not Detect); Enterococcus faecalis Not Detected (Not Detect); Enterococcus faecium Not Detected (Not Detect); Haemophilus influenzae Not Detected (Not Detect); Klebsiella aerogenes Not Detected (Not Detect); Listeria monocytogenes Not Detected (Not Detect); Neisseria meningitidis Not Detected (Not Detect); Proteus species Not Detected (Not Detect); Pseudomonas aeruginosa Not Detected (Not Detect); Salmonella species Not Detected (Not Detect); Serratia marcescens Not Detected (Not Detect); Staphylococcus epidermidis Not Detected (Not Detect); Staphylococcus lugdunensis Not Detected (Not Detect); Staphylococcus species Not Detected (Not Detect); Stenotrophomonas maltophilia Not Detected (Not Detect); Streptococcus agalactiae (Gr B Not Detected (Not Detect); Streptococcus pneumonia Not Detected (Not Detect); Streptococcus pyogenes (Gr A) Not Detected (Not Detect); Streptococcus species Not Detected (Not Detect)
== END 2023-04-07 19:56 | disposition home or self-care (01) ==
PROVIDERS: Emergency Medicine; Emergency Provider Emergency Medicine; PCP Internal Medicine
DX: U07.1 COVID-19 (principal)
CPT/HCPCS: 36415; 71045; 80048; 85025; 87040; 87154; 87205; 87633; 96361; 96374; 96375; 99284; J1885; J2405

== ENCOUNTER → 2023-04-10 07:14 | Outpatient (CLI) | payer MEDICARE, SELFPAY ==
[2022-04-17 16:31] VITALS: BMI 30.9
== END ==
PROVIDERS: PCP Internal Medicine; Referring Provider Internal Medicine; Visit Provider Internal Medicine
DX: R78.81 Bacteremia (principal)
CPT/HCPCS: 36415; 87040

== ENCOUNTER 2023-04-15 13:10 | Emergency (ER) | payer MEDICARE, SELFPAY ==
[2022-04-17 16:31] VITALS: BMI 30.9
[2023-04-15 13:19] VITALS: BP 165/74; PULSE 61; RESP 20; TEMP 36.4; O2SAT 98; BMI 29.2
--- NOTE | 2023-04-15 14:40 | ED_ITS ---
HPI - URI/Sore Throat <Kandi Lee PA-C - Last Filed: 04/15/23 16:39> General Chief Complaint: Upper Respiratory Symptoms Stated Complaint: Covid + T-7 getting wrost, blood culter.. Time Seen by Provider: 04/15/23 14:38 Source: patient Mode of arrival: Ambulatory History of Present Illness HPI Narrative: Patient left prior to evaluation. Related Data Home Medications Medication Instructions Recorded Confirmed omeprazole 20 mg tablet,delayed 20 mg PO DAILY 02/09/21 03/23/23 release calcium carbonate 500 mg-vitamin 1 tab PO DAILY 02/15/21 03/23/23 D3 5 mcg (200 unit) tablet (Calcium 500 + D) [employer] AirSense 10 Auto 12/29/21 03/23/23 Lactobacil.acidophilus-Bifido.animalis 1 cap PO DAILY 03/12/23 03/23/23 5 billion cell sprinkle capsule (Probiotic) vitamin B complex 1 cap DAILY 03/12/23 03/23/23 Previous Rx's Medication Instructions Recorded aspirin 81 mg tablet,delayed 81 mg PO DAILY #90 tabs 04/18/22 release hydrochlorothiazide 25 mg tablet 25 mg PO DAILY #90 tabs 08/28/22 ondansetron 4 mg disintegrating 4 mg PO Q8H PRN nausea and 04/07/23 tablet vomiting #14 tabs Allergies Allergy/AdvReac Type Severity Reaction Status Date / Time No Known Drug Allergies Allergy Verified 04/07/23 16:56 Patient History <Kandi Lee PA-C - Last Filed: 04/15/23 16:39> Medical History Breast cancer, left breast Breast cancer, right breast Cancer of left breast, stage 1, estrogen receptor positive Cataract of both eyes (01/20/16) Cataracts, bilateral (Unknown) CPAP (continuous positive airway pressure) dependence Diverticulosis Essential hypertension Former smoker H/O adenomatous polyp of colon History of hyperlipidemia (01/20/16) Hx of breast cancer (1995) Hx of hyperlipidemia (Unknown) Left knee pain (06/23/16) Obstructive sleep apnea Postoperative seroma Seborrheic dermatitis of scalp Ventral hernia Surgical History History of ankle surgery History of section History of colonoscopy History of hysterectomy Hx of bilateral cataract extraction Hx of mastectomy (~2017) S/P breast reconstruction, right (~1996) Status post cholecystectomy Status post repair of ventral hernia (~01/2021) Family History Father No problems noted. Mother Cancer Gallstones Ovarian cancer Sister Hypertension Heart disease Social History marital status: household members: spouse occupational status: previously employed Smoking Status: Former smoker Tobacco: How many years used: 20 second hand exposure: No alcohol intake: never substance use type: does not use Smoking Status: Former smoker tobacco type: cigarettes alcohol intake frequency: holidays/special occasions only Substance Use Type: does not use Exam <Kandi Lee PA-C - Last Filed: 04/15/23 16:39> Initial Vital Signs Initial Vital Signs: Vital Signs Temperature 97.6 F 04/15/23 13:19 Pulse Rate 61 04/15/23 13:19 Respiratory Rate 20 04/15/23 13:19 Blood Pressure 165/74 H 04/15/23 13:19 Pulse Oximetry 98 04/15/23 13:19 Oxygen Delivery Method Room Air 04/15/23 13:19 <DO Tanner Vang Last Filed: 04/16/23 07:05> Initial Vital Signs Initial Vital Signs: Vital Signs Temperature 97.6 F 04/15/23 13:19 Pulse Rate 61 04/15/23 13:19 Respiratory Rate 20 04/15/23 13:19 Blood Pressure 165/74 H 04/15/23 13:19 Pulse Oximetry 98 04/15/23 13:19 Oxygen Delivery Method Room Air 04/15/23 13:19 Course <Kandi Lee PA-C - Last Filed: 04/15/23 16:39> Vital Signs Vital signs: Vital Signs - 8 hr 04/15/23 13:19 Temperature 97.6 F Pulse Rate 61 Respiratory Rate 20 Blood Pressure 165/74 H Pulse Oximetry 98 Oxygen Delivery Method Room Air <DO Tanner Vang Last Filed: 04/16/23 07:05> Vital Signs Vital signs: Vital Signs - 8 hr 04/15/23 13:19 Temperature 97.6 F Pulse Rate 61 Respiratory Rate 20 Blood Pressure 165/74 H Pulse Oximetry 98 Oxygen Delivery Method Room Air Discharge Plan Departure Patient Disposition: Left Without Being Seen Clinical Impression: Patient left before evaluation by physician Prescriptions: No Action hydrochlorothiazide 25 mg tablet 25 mg PO DAILY Qty: 90 3RF omeprazole 20 mg Tablet,Delayed Release (Dr/Ec) 20 mg PO DAILY calcium carbonate-vitamin D3 [Calcium 500 + D] 500 mg(1,250mg) -200 unit Ta blet 1 tab PO DAILY aspirin 81 mg Tablet,Delayed Release (Dr/Ec) 81 mg PO DAILY Qty: 90 3RF ondansetron 4 mg tablet,disintegrating 4 mg PO Q8H PRN (Reason: nausea and vomiting) Qty: 14 0RF vitamin B complex [B Complex] Capsule 1 cap DAILY Probiotic 5 billion cell Capsule, Sprinkle 1 cap PO DAILY (DME) [employer] AirSense 10 Auto See Rx Instructions .Route .MEDSUPPLY Rx Instructions: CPAP Min: 10 Max: 18 DME: PHM <Marleni Bell DO - Last Filed: 04/16/23 07:05> Cosign ED Attending Cosignature Attestation: Patient left prior to evaluation
== END 2023-04-15 14:38 | disposition left against medical advice (07) ==
PROVIDERS: Emergency Provider Physician Assistant; PCP Internal Medicine
CPT/HCPCS: 99281

== ENCOUNTER → 2023-04-22 11:35 | Outpatient (CLI) | payer MEDICARE, SELFPAY ==
[2022-04-17 16:31] VITALS: BMI 30.9
== END ==
PROVIDERS: PCP Internal Medicine; Visit Provider Nurse Practitioner Family
DX: R35.0 Frequency of micturition (principal)
CPT/HCPCS: 87077; 87086; 87186

== ENCOUNTER → 2023-12-10 10:44 | Outpatient (CLI) | payer MEDICARE, SELFPAY ==
[2022-04-17 16:31] VITALS: BMI 30.9
[2023-12-14 15:09] LABS: QuantiFERON Mitogen Value >10.00 IU/mL (.); QuantiFERON Nil Value 0.16 IU/mL (.); QuantiFERON TB Gold Plus Negative (Negative); QuantiFERON TB1 Ag Value 0.07 IU/mL (.); QuantiFERON TB2 Ag Value 0.13 IU/mL (.)
== END ==
LOC: LAB 10:49
PROVIDERS: PCP Internal Medicine; Referring Provider Dermatology; Visit Provider Dermatology
DX: L40.0 Psoriasis vulgaris (principal)
CPT/HCPCS: 36415; 86480

== ENCOUNTER → 2024-05-23 09:37 | Outpatient (CLI) | payer MEDICARE, SELFPAY ==
[2024-01-11 10:17] VITALS: BMI 30.9
== END ==
PROVIDERS: PCP Internal Medicine; Referring Provider Nurse Practitioner Family; Visit Provider Nurse Practitioner Family
DX: N89.8 Other specified noninflammatory disorders of vagina (principal)
CPT/HCPCS: 87086; 87210

== ENCOUNTER → 2024-06-20 08:33 | Outpatient (CLI) | payer MEDICARE, SELFPAY ==
[2024-01-11 10:17] VITALS: BMI 30.9
== END ==
PROVIDERS: PCP Internal Medicine; Visit Provider Physician Assistant Medical
DX: R30.0 Dysuria (principal); N94.89 Other specified conditions associated with female genital organs and menstrual cycle
CPT/HCPCS: 87077; 87086; 87186; 87210

== ENCOUNTER → 2024-07-07 16:57 | Outpatient (CLI) | payer MEDICARE, SELFPAY ==
[2024-01-11 10:17] VITALS: BMI 30.9
== END ==
PROVIDERS: PCP Internal Medicine; Visit Provider Nurse Practitioner Family
DX: R30.0 Dysuria (principal)
CPT/HCPCS: 87077; 87086; 87186; 87210

== ENCOUNTER → 2025-02-02 07:26 | Outpatient (CLI) | payer MEDICARE, SELFPAY ==
[2024-01-11 10:17] VITALS: BMI 30.9
== END ==
PROVIDERS: PCP Internal Medicine; Referring Provider Nurse Practitioner Family; Visit Provider Nurse Practitioner Family
DX: R30.0 Dysuria (principal)
CPT/HCPCS: 87077; 87086; 87186